=== PATIENT | female | born 1955 | race Caucasian/White ===

== ENCOUNTER 2017-03-07 15:51 | Emergency (ER) | payer MEDICAID, OTHER ==
[~2017-03-07] VITALS: Ht 160 cm; Wt 50.0 kg
[~2017-03-07 15:51] MED LIST: ALBU6.7H INH; AZIT500T5 PO; CLOP75TA15 PO; DUONEB3 ML HHN; Docusate Sodium PO; METH5TAB2 PO; VERA180C2 PO
[2017-03-07] MEDS ORDERED: BENA20TA3 PO (15:59)
[2017-03-07] MEDS ORDERED: METHYLPREDNISOLONE SOD SUCC 125 MG/2 ML VIAL IV STA (16:08)
[2017-03-07] MEDS ORDERED: IPRATROPIUM BROMIDE (0.02%) 0.5MG/2.5ML NEB HHN STA (16:08)
[2017-03-07] MEDS ORDERED: ALBUTEROL (0.083%) 2.5MG/3ML NEB HHN SCH (16:30)
[2017-03-07 16:53] LABS: PROTHROMBIN TIME 10.6 sec (9.4-11.6)
[2017-03-07 16:54] LABS: BASOPHILS % 0.1 % (0.0-2.0); EOSINOPHILS % 0.3 % (0.0-5.0); HEMATOCRIT. 35.4 % (36.0-48.0); HEMOGLOBIN. 11.9 g/dL (12.0-16.0); LYMPHOCYTES % 17.2 % (20.0-50.0); MEAN CORPUSCULAR HEMOGLOBIN 33.1 pg (28.0-32.0); MEAN CORPUSCULAR VOLUME 98.9 fL (81.0-99.0); MEAN PLATELET VOLUME 7.6 fl (7.4-10.4); MONOCYTES % 4.7 % (2.0-8.0); NEUTROPHILS % 77.7 % (40.0-76.0); PLATELET 260 x1000/uL (130-400); RED BLOOD CELL COUNT 3.58 mill/uL (4.2-5.4); RED CELL DISTRIBUTION WIDTH 14.1 % (11.6-14.6)
[2017-03-07 17:01] LABS: CARBON DIOXIDE 31 mEq/L (21-32); CHLORIDE 105 mEq/L (98-107)
[2017-03-07 19:44] VITALS: BP 161/86
[2017-03-07] MEDS ORDERED: ACETAMINOPHEN 650MG/20.3ML UDC PO ONE (20:00)
== END 2017-03-07 21:00 | disposition home or self-care (01) ==
LOC: ER 16:14
DX: J44.1 Chronic obstructive pulmonary disease with (acute) exacerbation (principal); I12.9 Hypertensive chronic kidney disease with stage 1 through stage 4 chronic kidney disease, or unspecified chronic kidney disease; N18.9 Chronic kidney disease, unspecified; B19.20 Unspecified viral hepatitis C without hepatic coma; D63.1 Anemia in chronic kidney disease; F17.210 Nicotine dependence, cigarettes, uncomplicated; F11.10 Opioid abuse, uncomplicated; Z86.73 Personal history of transient ischemic attack (TIA), and cerebral infarction without residual deficits; Z88.0 Allergy status to penicillin
CPT/HCPCS: 36415; 71010; 80053; 85025; 85610; 93005; 94640; 96374; 99285; J2930; J7611; Z7610

== ENCOUNTER 2017-04-08 11:33 | Emergency (ER) | payer MEDICAID ==
[~2017-04-08] VITALS: Ht 160 cm; Wt 41.0 kg
[~2017-04-08 11:33] MED LIST changes: +BENA20TA3 PO
[2017-04-08 12:24] LABS: BASOPHILS % 0.3 % (0.0-2.0); EOSINOPHILS % 0.5 % (0.0-5.0); HEMATOCRIT. 39.1 % (36.0-48.0); LYMPHOCYTES % 30.4 % (20.0-50.0); MEAN CORPUSCULAR HEMOGLOBIN 33.3 pg (28.0-32.0); MEAN PLATELET VOLUME 8.2 fl (7.4-10.4); MONOCYTES % 6.7 % (2.0-8.0); NEUTROPHILS % 62.1 % (40.0-76.0); PLATELET 285 x1000/uL (130-400); RED BLOOD CELL COUNT 3.91 mill/uL (4.2-5.4); RED CELL DISTRIBUTION WIDTH 14.1 % (11.6-14.6)
[2017-04-08 12:35] LABS: CARBON DIOXIDE 29 mEq/L (21-32); CHLORIDE 105 mEq/L (98-107)
[2017-04-08 12:48] LABS: INR 1.1; PROTHROMBIN TIME 10.9 sec (9.4-11.6)
[2017-04-08 14:22] VITALS: BP 111/68
== END 2017-04-08 14:24 | disposition home or self-care (01) ==
LOC: ER 12:28
DX: M54.12 Radiculopathy, cervical region (principal); F17.290 Nicotine dependence, other tobacco product, uncomplicated; J44.9 Chronic obstructive pulmonary disease, unspecified; Z86.19 Personal history of other infectious and parasitic diseases; Z88.0 Allergy status to penicillin; Z79.01 Long term (current) use of anticoagulants
CPT/HCPCS: 36415; 72040; 80053; 85025; 85610; 99285

== ENCOUNTER 2017-07-20 16:58 | Emergency (ER) | payer MEDICAID ==
[~2017-07-20] VITALS: Ht 157.5 cm; Wt 41.0 kg
[2017-07-20 18:32] LABS: BASOPHILS % 0.2 % (0.0-2.0); EOSINOPHILS % 0.4 % (0.0-5.0); HEMATOCRIT. 41.6 % (36.0-48.0); HEMOGLOBIN. 13.6 g/dL (12.0-16.0); LYMPHOCYTES % 17.6 % (20.0-50.0); MEAN CORPUSCULAR HEMOGLOBIN 32.5 pg (28.0-32.0); MEAN CORPUSCULAR VOLUME 99.3 fL (81.0-99.0); MEAN PLATELET VOLUME 7.6 fl (7.4-10.4); MONOCYTES % 5.9 % (2.0-8.0); NEUTROPHILS % 75.9 % (40.0-76.0); PLATELET 296 x1000/uL (130-400); RED BLOOD CELL COUNT 4.19 mill/uL (4.2-5.4)
[2017-07-20 18:34] LABS: CHLORIDE 101 mEq/L (98-107)
[2017-07-20 18:41] LABS: CARBON DIOXIDE 29 mEq/L (21-32)
[2017-07-20 18:53] VITALS: BP 119/75
== END 2017-07-20 19:04 | disposition home or self-care (01) ==
LOC: ER 16:58
DX: R20.2 Paresthesia of skin (principal); F17.200 Nicotine dependence, unspecified, uncomplicated; J44.9 Chronic obstructive pulmonary disease, unspecified; Z90.710 Acquired absence of both cervix and uterus; W19.XXXA Unspecified fall, initial encounter; Y93.89 Activity, other specified; Y92.89 Other specified places as the place of occurrence of the external cause; Y99.8 Other external cause status
CPT/HCPCS: 36415; 70450; 71045; 80053; 85025; 93005; 99285

== ENCOUNTER 2017-11-04 10:36 | Inpatient (IN) | payer MEDICAID ==
[~2017-11-04] VITALS: Ht 157.5 cm; Wt 42.2 kg
[~2017-11-04 10:36] MED LIST changes: -ALBU6.7H INH; -AZIT500T5 PO; -BENA20TA3 PO; -CLOP75TA15 PO; -DUONEB3 ML HHN; -Docusate Sodium PO; +METH10TA2 PO; -METH5TAB2 PO; -VERA180C2 PO
[2017-11-04 11:22] LABS: BASOPHILS % 0.3 % (0.0-2.0); EOSINOPHILS % 0.1 % (0.0-5.0); HEMATOCRIT. 43.3 % (36.0-48.0); HEMOGLOBIN. 14.6 g/dL (12.0-16.0); LYMPHOCYTES % 12.5 % (20.0-50.0); MEAN CORPUSCULAR HEMOGLOBIN 33.4 pg (28.0-32.0); MEAN CORPUSCULAR VOLUME 99.1 fL (81.0-99.0); MEAN PLATELET VOLUME 7.5 fl (7.4-10.4); MONOCYTES % 7.5 % (2.0-8.0); NEUTROPHILS % 79.6 % (40.0-76.0); PLATELET 257 x1000/uL (130-400); RED BLOOD CELL COUNT 4.37 mill/uL (4.2-5.4); RED CELL DISTRIBUTION WIDTH 16.5 % (11.6-14.6)
[2017-11-04 11:30] LABS: CHLORIDE 95 mEq/L (98-107); INR 1.1
[2017-11-04] MEDS ORDERED: IPRATROPIUM/ALBUTEROL 0.5-3(2.5)MG/3ML NEB HHN PRN ×2 (12:15→18:15)
[2017-11-04] MEDS ORDERED: DEXT 5%/0.45% NACL 1000ML 1,000 ML IV SCH (12:15)
[2017-11-04] MEDS ORDERED: HYDRALAZINE 20MG/ML VIAL IV PRN (12:15)
[2017-11-04] MEDS ORDERED: DEXAMETHASONE 10 MG/ML VIAL IV ONE (13:45)
[2017-11-04 14:30] VITALS: BP 136/90
[2017-11-04] MEDS ORDERED: HYDRALAZINE 10 MG in SODIUM CHLORIDE 0.9% 49.5 ML IV PRN (15:30)
[2017-11-04 15:51] VITALS: BP 136/90
[2017-11-04] MEDS ORDERED: POTASSIUM CHLORIDE INJ 40 MEQ in DEXT 5% WATER 250 ML IV NR (17:00)
[2017-11-04] MEDS: KCL 20MEQ/100ML PREMIX 100 ML IV SCH ×2 (17:31→19:00)
[2017-11-04 18:09] LABS: CLARITY URINE CLEAR (CLEAR); COLOR URINE YELLOW (YELLOW); KETONES URINE NEGATIVE (NEGATIVE); LEUKOCYTE ESTERASE URINE NEGATIVE (NEGATIVE); NITRITE URINE NEGATIVE (NEGATIVE); OCCULT BLOOD URINE NEGATIVE (NEGATIVE); PH URINE 7.5 (4.5-8.0); PROTEIN URINE 2+ (NEGATIVE); SPECIFIC GRAVITY URINE 1.015 (1.005-1.030)
[2017-11-04 18:17] LABS: PHENCYCLIDINE URINE SCREEN NEGATIVE (NEGATIVE)
[2017-11-04 18:18] LABS: *AMPHETAMINES SCREEN URINE NEGATIVE (NEGATIVE); *BARBITURATES SCREEN URINE NEGATIVE (NEGATIVE); *BENZODIAZEPINES SCREEN URINE NEGATIVE (NEGATIVE); *COCAINE SCREEN URINE NEGATIVE (NEGATIVE); CANNABINOID URINE SCREEN NEGATIVE (NEGATIVE); OPIATES URINE SCREEN NEGATIVE (NEGATIVE)
[2017-11-04 18:25] LABS: METHADONE URINE SCREEN PRESUMTIVE POSITIVE (NEGATIVE)
[2017-11-04] MEDS: HYDROCODONE/ACETAMINOPHEN 10/325MG TABLET PO PRN (18:30)
[2017-11-04] MEDS ORDERED: NICOTINE 21MG PATCH TD NR (20:00)
[2017-11-04] MEDS: BUDESONIDE 0.5MG/2ML NEB HHN SCH (20:57)
[2017-11-04] MEDS: IPRATROPIUM/ALBUTEROL 0.5-3(2.5)MG/3ML NEB HHN SCH (20:57)
[2017-11-04] MEDS: MORPHINE SULFATE 4 MG/ML CPJ (NOT FOR IM USE) IV PRN (21:04)
[2017-11-05] VITALS: BP 160/99
[2017-11-05] MEDS: CLONIDINE 0.1MG TABLET PO PRN (00:03)
[2017-11-05] MEDS: IPRATROPIUM/ALBUTEROL 0.5-3(2.5)MG/3ML NEB HHN SCH ×4 (02:29→21:13)
[2017-11-05 04:00] VITALS: BP 123/86
[2017-11-05 06:26] LABS: HEMATOCRIT 38.6 % (36.0-48.0); MEAN CORPUSCULAR HEMOGLOBIN 33.2 pg (28.0-32.0); MEAN CORPUSCULAR VOLUME 98.9 fL (81.0-99.0); PLATELET 210 x1000/uL (130-400); RED BLOOD CELL COUNT 3.91 mill/uL (4.2-5.4); RED CELL DISTRIBUTION WIDTH 16.5 % (11.6-14.6)
[2017-11-05] MEDS: HYDROCODONE/ACETAMINOPHEN 10/325MG TABLET PO PRN (06:28)
[2017-11-05 06:48] LABS: CHLORIDE 93 mEq/L (98-107)
[2017-11-05] MEDS: BUDESONIDE 0.5MG/2ML NEB HHN SCH ×2 (07:55→21:11)
[2017-11-05 08:00] VITALS: BP 125/89
[2017-11-05] MEDS: METHADONE HCL 10MG TABLET PO SCH (08:37)
[2017-11-05] MEDS ORDERED: POTASSIUM CHLORIDE 20MEQ TABLET SR PO NR (11:15)
[2017-11-05] MEDS: NICOTINE 21MG PATCH TD SCH (11:37)
[2017-11-05 12:00] VITALS: BP 134/77
[2017-11-05] MEDS: DEXAMETHASONE 4MG/ML 1ML VIAL IV SCH ×2 (12:57→18:20)
[2017-11-05 16:00] VITALS: BP 123/87
[2017-11-05 20:00] VITALS: BP 131/89
[2017-11-05] MEDS: MORPHINE SULFATE 4 MG/ML CPJ (NOT FOR IM USE) IV PRN (20:04)
[2017-11-06] VITALS (35 sets, daily range): BP systolic 92–194; BP diastolic 48–151
[2017-11-06] MEDS: DEXAMETHASONE 4MG/ML 1ML VIAL IV SCH ×5 (00:24→23:42)
[2017-11-06] MEDS: IPRATROPIUM/ALBUTEROL 0.5-3(2.5)MG/3ML NEB HHN SCH ×3 (03:12→19:52)
[2017-11-06] MEDS: MORPHINE SULFATE 4 MG/ML CPJ (NOT FOR IM USE) IV PRN ×3 (04:29→22:29)
[2017-11-06] MEDS ORDERED: GELATIN SPONGE,ABSORBABLE SZ 100 ONE (06:45)
[2017-11-06] MEDS ORDERED: BACITRACIN 50,000 UNITS/VIAL ONE (06:46)
[2017-11-06] MEDS ORDERED: THROMBIN (BOVINE) 5000 UNITS/VIAL TOP ONE (06:46)
[2017-11-06] MEDS ORDERED: NORMAL SALINE 0.9% 10 ML SYR ONE (06:46)
[2017-11-06] MEDS: BUDESONIDE 0.5MG/2ML NEB HHN SCH ×2 (08:10→19:52)
[2017-11-06] MEDS: METHADONE HCL 10MG TABLET PO SCH (09:00)
[2017-11-06] MEDS: NICOTINE 21MG PATCH TD SCH (09:30)
[2017-11-06] MEDS ORDERED: NICARDIPINE 100 MG in SODIUM CHLORIDE 0.9% 60 ML IV PRN (11:00)
[2017-11-06] MEDS ORDERED: MORPHINE SULFATE 2 MG/ML CPJ (NOT FOR IM USE) IV PRN (11:00)
[2017-11-06] MEDS ORDERED: PROPOFOL 200MG/20ML VIAL IV ONE ×3 (12:02→13:59)
[2017-11-06] MEDS ORDERED: MIDAZOLAM HCL 2 MG/2 ML VIAL ONE (12:08)
[2017-11-06] MEDS ORDERED: FENTANYL CITRATE/PF 50MCG/ML 5ML VIAL ONE (12:08)
[2017-11-06] MEDS ORDERED: ROCURONIUM BROMIDE 10MG/ML VIAL 5ML IV ONE (12:11)
[2017-11-06] MEDS ORDERED: SUCCINYLCHOLINE CHLORIDE 200MG/10ML VIAL IV ONE (13:14)
[2017-11-06] MEDS ORDERED: LABETALOL HCL 5MG/ML VIAL 20ML IV ONE (13:14)
[2017-11-06] MEDS ORDERED: CEFAZOLIN SODIUM 1000MG/VIAL ONE (13:14)
[2017-11-06] MEDS ORDERED: PETROLATUM,WHITE OPHTH OINT 3.5GM ONE (13:14)
[2017-11-06] MEDS ORDERED: LIDOCAINE HCL 1% 20ML VIAL (Pyxis) INJ ONE (13:14)
[2017-11-06] MEDS ORDERED: NEOSTIGMINE METHYLSULFATE 1MG/ML 10 ML VIAL ONE (14:51)
[2017-11-06] MEDS ORDERED: ONDANSETRON HCL 4MG/2ML VIAL ONE (15:05)
[2017-11-06 15:54] LABS: BG BASE EXCESS 0.7 mmol/L (-2.0-2.0); BG CARBOXYHEMOGLOBIN 0.5 % (0.5-1.5); BG DEOXYHEMOGLOBIN 0.5 % (0.0-5.0); BG FRACTION INSPIRED OXYGEN 80+; BG HCO3 ACT 26.3 mmol/L (22.0-26.0); BG METHEMOGLOBIN 0.2 % (0.0-1.5); BG OXYGEN SATURATION 99.5 % (92.0-98.5); BG OXYHEMOGLOBIN 98.8 % (94.0-97.0); BG PCO2 46.2 mmHg (35.0-45.0); BG PH 7.373 (7.350-7.450); BG PO2 294.9 mmHg (75.0-100.0); BG SAMPLE SITE LEFT RADIAL; BG TOTAL HEMOGLOBIN 12.1 g/dL (12.0-18.0); BG VENT MODE MASK - SIMPLE
[2017-11-06] MEDS ORDERED: NALOXONE INJ IV PRN (16:00)
[2017-11-06] MEDS ORDERED: DIPHENHYDRAMINE INJ IV PRN (16:00)
[2017-11-06] MEDS ORDERED: ONDANSETRON INJ IV PRN (16:00)
[2017-11-06] MEDS ORDERED: HYDROMORPHONE PCA 10MG/50ML IV PRN (16:00)
[2017-11-06] MEDS: DEXT 5%/LACTATED RINGERS 1,000 ML IV SCH (18:53)
[2017-11-06] MEDS ORDERED: CEFAZOLIN SODIUM 1000MG/VIAL IV SCH (22:00)
[2017-11-06] MEDS: CEFAZOLIN 1000MG PREMIX 50 ML IV SCH (22:22)
[2017-11-07] VITALS (56 sets, daily range): BP systolic 115–182; BP diastolic 46–146
[2017-11-07] MEDS: IPRATROPIUM/ALBUTEROL 0.5-3(2.5)MG/3ML NEB HHN SCH ×5 (00:22→21:05)
[2017-11-07] MEDS: DEXT 5%/LACTATED RINGERS 1,000 ML IV SCH ×2 (01:54→13:13)
[2017-11-07] MEDS: MORPHINE SULFATE 4 MG/ML CPJ (NOT FOR IM USE) IV PRN (04:37)
[2017-11-07 05:37] LABS: HEMATOCRIT. 35.3 % (36.0-48.0); HEMOGLOBIN. 11.5 g/dL (12.0-16.0); MEAN CORPUSCULAR HEMOGLOBIN 33.2 pg (28.0-32.0); MEAN CORPUSCULAR VOLUME 101.4 fL (81.0-99.0); MEAN PLATELET VOLUME 8.3 fl (7.4-10.4); PLATELET 213 x1000/uL (130-400); RED BLOOD CELL COUNT 3.48 mill/uL (4.2-5.4); RED CELL DISTRIBUTION WIDTH 16.1 % (11.6-14.6)
[2017-11-07] MEDS: DEXAMETHASONE 4MG/ML 1ML VIAL IV SCH ×3 (05:50→17:38)
[2017-11-07] MEDS: CEFAZOLIN 1000MG PREMIX 50 ML IV SCH ×2 (05:50→16:19)
[2017-11-07 05:53] LABS: CHLORIDE 99 mEq/L (98-107)
[2017-11-07 08:34] LABS: PLATELET ESTIMATE NORMAL
[2017-11-07] MEDS: METHADONE HCL 10MG TABLET PO SCH ×2 (09:00→16:21)
[2017-11-07] MEDS: NICOTINE 21MG PATCH TD SCH (10:46)
[2017-11-07] MEDS ORDERED: MORPHINE SULFATE 4 MG/ML CPJ (NOT FOR IM USE) IV PRN (12:15)
[2017-11-07] MEDS: BUDESONIDE 0.5MG/2ML NEB HHN SCH ×2 (12:59→21:05)
[2017-11-07] MEDS ORDERED: AMLODIPINE 2.5MG TABLET PO SCH (17:00)
[2017-11-07] MEDS: AMLODIPINE 2.5MG TABLET PO SCH ×2 (17:37→21:00)
[2017-11-08] VITALS (7 sets, daily range): BP systolic 102–154; BP diastolic 54–99
[2017-11-08] MEDS: DEXAMETHASONE 4MG/ML 1ML VIAL IV SCH ×4 (00:15→17:03)
[2017-11-08] MEDS: HYDROCODONE/ACETAMINOPHEN 10/325MG TABLET PO PRN ×2 (00:16→17:14)
[2017-11-08] MEDS: IPRATROPIUM/ALBUTEROL 0.5-3(2.5)MG/3ML NEB HHN SCH ×4 (02:01→22:16)
[2017-11-08] MEDS: CLONIDINE 0.1MG TABLET PO PRN (04:37)
[2017-11-08 07:00] LABS: HEMATOCRIT. 34.8 % (36.0-48.0); HEMOGLOBIN. 11.7 g/dL (12.0-16.0); MEAN CORPUSCULAR HEMOGLOBIN 33.8 pg (28.0-32.0); MEAN CORPUSCULAR VOLUME 100.7 fL (81.0-99.0); PLATELET 211 x1000/uL (130-400); RED BLOOD CELL COUNT 3.46 mill/uL (4.2-5.4); RED CELL DISTRIBUTION WIDTH 15.9 % (11.6-14.6)
[2017-11-08 07:29] LABS: CHLORIDE 98 mEq/L (98-107)
[2017-11-08] MEDS: AMLODIPINE 2.5MG TABLET PO SCH (09:35)
[2017-11-08] MEDS: NICOTINE 21MG PATCH TD SCH (09:35)
[2017-11-08] MEDS: METHADONE HCL 10MG TABLET PO SCH (09:37)
[2017-11-08] MEDS: DOCUSATE SODIUM 100MG CAPSULE PO SCH (17:03)
[2017-11-08 17:50] LABS: PLATELET ESTIMATE NORMAL
[2017-11-08] MEDS ORDERED: POLYETHYLENE GLYCOL 3350 (17GM) 1 DOSE PACK PO SCH (21:00)
[2017-11-08] MEDS: AMLODIPINE 5MG TABLET PO SCH (21:56)
[2017-11-09] VITALS: BP 163/97
[2017-11-09] MEDS: IPRATROPIUM/ALBUTEROL 0.5-3(2.5)MG/3ML NEB HHN SCH (02:20)
[2017-11-09 04:00] VITALS: BP 142/88
[2017-11-09] MEDS ORDERED: PANTOPRAZOLE 40MG DR TABLET PO SCH (07:20)
[2017-11-09] MEDS: DOCUSATE SODIUM 100MG CAPSULE PO SCH (08:42)
[2017-11-09] MEDS: METHADONE HCL 10MG TABLET PO SCH (08:42)
[2017-11-09] MEDS: AMLODIPINE 5MG TABLET PO SCH (08:42)
[2017-11-09] MEDS: NICOTINE 21MG PATCH TD SCH (08:43)
[2017-11-09 16:02] VITALS: BP 114/69
== END 2017-11-09 16:42 | disposition home health service (06) | DRG 321 ==
LOC: ER 10:49 → 6EST 11:21 → ENRESERV 11:56 → MICUSO 11-06 11:51 → 6EST 11-07 20:45
PROVIDERS: ADMIT Internal Medicine; ATTEND Internal Medicine
PROC: 0RG10K0 Fusion of Cervical Vertebral Joint with Nonautologous Tissue Substitute, Anterior Approach, Anterior Column, Open Approach (ICD-10-PCS; 2017-11-06)
PROC: 0RT30ZZ Resection of Cervical Vertebral Disc, Open Approach (ICD-10-PCS; principal; 2017-11-06 10:00)
DX: M48.02 Spinal stenosis, cervical region (principal); E43 Unspecified severe protein-calorie malnutrition; S14.103A Unspecified injury at C3 level of cervical spinal cord, initial encounter; G82.50 Quadriplegia, unspecified; G95.89 Other specified diseases of spinal cord; E87.8 Other disorders of electrolyte and fluid balance, not elsewhere classified; G95.20 Unspecified cord compression; F11.20 Opioid dependence, uncomplicated; M41.84 Other forms of scoliosis, thoracic region; G95.29 Other cord compression; M47.12 Other spondylosis with myelopathy, cervical region; S14.104A Unspecified injury at C4 level of cervical spinal cord, initial encounter; B19.20 Unspecified viral hepatitis C without hepatic coma; E87.6 Hypokalemia; M48.061 Spinal stenosis, lumbar region without neurogenic claudication; J44.9 Chronic obstructive pulmonary disease, unspecified; I10 Essential (primary) hypertension; M47.22 Other spondylosis with radiculopathy, cervical region; D64.9 Anemia, unspecified; Z96.642 Presence of left artificial hip joint; G89.4 Chronic pain syndrome; F17.210 Nicotine dependence, cigarettes, uncomplicated; X58.XXXA Exposure to other specified factors, initial encounter; Y93.89 Activity, other specified; Y92.89 Other specified places as the place of occurrence of the external cause; Y99.8 Other external cause status; Z86.73 Personal history of transient ischemic attack (TIA), and cerebral infarction without residual deficits; Z82.5 Family history of asthma and other chronic lower respiratory diseases; Z82.49 Family history of ischemic heart disease and other diseases of the circulatory system; Z90.710 Acquired absence of both cervix and uterus; Z68.1 Body mass index [BMI] 19.9 or less, adult; Z88.0 Allergy status to penicillin; Z91.81 History of falling
CPT/HCPCS: 36415; 36600; 71045; 72040; 72128; 72131; 72141; 80048; 80305; 81003; 82040; 82375; 82805; 84484; 85025; 85027; 85610; 87070; 87075; 87205; 88304; 88311; 92610; 93005; 93306; 94640; 97110; 97116; 97163; 97166; 97530; 97535; 99285; A4216; C1713; C1893; J0330; J0690; J1100; J1170; J2250; J2270; J2405; J2704; J2710; J3010; J3480; J3490; J7040; J7050; J7060; J7121; J7620; J7626; L0172

== ENCOUNTER 2018-03-22 19:02 | Inpatient (IN) | payer MEDICAID ==
[~2018-03-22] VITALS: Ht 157.5 cm; Wt 38.7 kg
[2018-03-22] MEDS ORDERED: IPRATROPIUM BROMIDE (0.02%) 0.5MG/2.5ML NEB HHN STA (19:14)
[2018-03-22] MEDS ORDERED: ALBUTEROL (0.083%) 2.5MG/3ML NEB HHN STA (19:14)
[2018-03-22] MEDS ORDERED: METHYLPREDNISOLONE SOD SUCC 125 MG/2 ML VIAL IV STA (19:14)
[2018-03-22 20:13] LABS: BASOPHILS % 0.2 % (0.0-2.0); EOSINOPHILS % 0.2 % (0.0-5.0); HEMATOCRIT. 42.7 % (36.0-48.0); LYMPHOCYTES % 33.1 % (20.0-50.0); MEAN CORPUSCULAR HEMOGLOBIN 35.4 pg (28.0-32.0); MEAN CORPUSCULAR VOLUME 107.9 fL (81.0-99.0); MEAN PLATELET VOLUME 8.4 fl (7.4-10.4); MONOCYTES % 7.5 % (2.0-8.0); PLATELET 167 x1000/uL (130-400); RED BLOOD CELL COUNT 3.95 mill/uL (4.2-5.4); RED CELL DISTRIBUTION WIDTH 16.3 % (11.6-14.6)
[2018-03-22 20:17] LABS: CHLORIDE 102 mEq/L (98-107)
[2018-03-22] MEDS ORDERED: ASPIRIN 81MG TABLET PO ONE (21:00)
[2018-03-22] MEDS ORDERED: FUROSEMIDE 20MG TABLET PO ONE (21:00)
[2018-03-22] MEDS ORDERED: GUAIFENESIN 200MG/10ML SUGAR FREE UDC PO PRN (21:45)
[2018-03-22] MEDS ORDERED: ONDANSETRON HCL 4MG/2ML INJ IV PRN (21:45)
[2018-03-22] MEDS ORDERED: MAGNESIUM/ALUMINUM HYDROXIDE/SIMETHICONE 30ML UDC PO PRN (21:45)
[2018-03-22] MEDS ORDERED: IPRATROPIUM/ALBUTEROL 0.5-3(2.5)MG/3ML NEB INH PRN (21:45)
[2018-03-22] MEDS ORDERED: HYDROCODONE/ACETAMINOPHEN 5/325MG TABLET PO PRN (21:45)
[2018-03-22] MEDS ORDERED: DOCUSATE SODIUM 100MG CAPSULE PO PRN (21:45)
[2018-03-22] MEDS ORDERED: CLONIDINE 0.1MG TABLET PO PRN (21:45)
[2018-03-22] MEDS ORDERED: ACETAMINOPHEN 325MG TABLET PO PRN (21:45)
[2018-03-22 22:20] VITALS: BP 137/85
[2018-03-22] MEDS ORDERED: POTASSIUM CHLORIDE 20MEQ TABLET SR PO SCH (22:29)
[2018-03-22] MEDS: METHYLPREDNISOLONE SOD SUCC 40 MG/ML VIAL IV SCH (23:29)
[2018-03-22 23:46] LABS: CREATINE KINASE MB FRACTION 7.1 ng/mL (0.5-3.6)
[2018-03-23] VITALS: BP 137/85
[2018-03-23] MEDS: IPRATROPIUM/ALBUTEROL 0.5-3(2.5)MG/3ML NEB INH SCH ×5 (01:48→21:40)
[2018-03-23] MEDS: BUDESONIDE 0.5MG/2ML NEB HHN SCH ×2 (01:59→12:32)
[2018-03-23 02:51] LABS: CLARITY URINE CLEAR (CLEAR); COLOR URINE YELLOW (YELLOW); KETONES URINE NEGATIVE (NEGATIVE); LEUKOCYTE ESTERASE URINE NEGATIVE (NEGATIVE); NITRITE URINE NEGATIVE (NEGATIVE); OCCULT BLOOD URINE NEGATIVE (NEGATIVE); PROTEIN URINE TRACE (NEGATIVE); SPECIFIC GRAVITY URINE 1.012 (1.005-1.030); UROBILINOGEN URINE 0.2 E.U./dL (0.2-1.0)
[2018-03-23 03:15] LABS: *BENZODIAZEPINES SCREEN URINE NEGATIVE (NEGATIVE); *COCAINE SCREEN URINE NEGATIVE (NEGATIVE); OPIATES URINE SCREEN NEGATIVE (NEGATIVE)
[2018-03-23 03:16] LABS: *AMPHETAMINES SCREEN URINE NEGATIVE (NEGATIVE); *BARBITURATES SCREEN URINE NEGATIVE (NEGATIVE); CANNABINOID URINE SCREEN NEGATIVE (NEGATIVE); PHENCYCLIDINE URINE SCREEN NEGATIVE (NEGATIVE)
[2018-03-23 03:40] LABS: METHADONE URINE SCREEN PRESUMTIVE POSITIVE (NEGATIVE)
[2018-03-23 04:00] VITALS: BP 137/89
[2018-03-23] MEDS: METHYLPREDNISOLONE SOD SUCC 40 MG/ML VIAL IV SCH ×2 (05:14→15:08)
[2018-03-23 06:25] LABS: HEMATOCRIT. 40.4 % (36.0-48.0); HEMOGLOBIN. 13.4 g/dL (12.0-16.0); MEAN CORPUSCULAR HEMOGLOBIN 35.7 pg (28.0-32.0); MEAN CORPUSCULAR VOLUME 107.6 fL (81.0-99.0); MEAN PLATELET VOLUME 8.7 fl (7.4-10.4); PLATELET 149 x1000/uL (130-400); RED BLOOD CELL COUNT 3.75 mill/uL (4.2-5.4); RED CELL DISTRIBUTION WIDTH 15.8 % (11.6-14.6)
[2018-03-23] MEDS: ENOXAPARIN 40MG/0.4ML SYR SUBCUT SCH (07:59)
[2018-03-23 12:00] VITALS: BP 158/101
[2018-03-23] MEDS ORDERED: INFLUENZA VIRUS VACCINE(AFLURIA) 0.5ML SYR IM ONE (12:00)
[2018-03-23] MEDS ORDERED: THIAMINE HCL 100MG TABLET PO NR (12:00)
[2018-03-23] MEDS: LORAZEPAM 2MG/ML CPJ IV PRN ×2 (13:18→17:32)
[2018-03-23 13:46] LABS: PLATELET ESTIMATE NORMAL
[2018-03-23] MEDS ORDERED: IPRATROPIUM/ALBUTEROL 0.5-3(2.5)MG/3ML NEB HHN PRN (14:30)
[2018-03-23] MEDS ORDERED: CLONIDINE 0.1MG TABLET PO PRN (14:30)
[2018-03-23] MEDS ORDERED: NICOTINE 7MG PATCH TD SCH (15:00)
[2018-03-23] MEDS: CHLORDIAZEPOXIDE 5 MG CAPSULE PO SCH ×2 (15:07→21:29)
[2018-03-23 16:00] VITALS: BP_SYST 150; BP_DIAS 83; BP_DIAS 93
[2018-03-23] MEDS ORDERED: MAGNESIUM SULFATE 2 GM in DEXTROSE 5% WATER 50 ML IV NR (17:00)
[2018-03-23] MEDS: PREDNISONE 20MG TABLET PO SCH (17:32)
[2018-03-23 20:00] VITALS: BP 132/86
[2018-03-23 21:01] LABS: ETHANOL BLOOD < 10 mg/dL
[2018-03-23 21:06] LABS: T4 FREE 1.03 ng/dL (0.76-1.46)
[2018-03-23] MEDS: RISPERIDONE 0.5MG TABLET PO SCH (21:29)
[2018-03-24] VITALS: BP 140/88
[2018-03-24] MEDS: IPRATROPIUM/ALBUTEROL 0.5-3(2.5)MG/3ML NEB INH SCH ×5 (02:20→20:25)
[2018-03-24] MEDS: BUDESONIDE 0.5MG/2ML NEB HHN SCH ×3 (02:20→20:25)
[2018-03-24 04:00] VITALS: BP 128/89
[2018-03-24] MEDS: CHLORDIAZEPOXIDE 5 MG CAPSULE PO SCH ×3 (05:17→20:02)
[2018-03-24 06:14] LABS: CHLORIDE 93 mEq/L (98-107)
[2018-03-24 06:20] LABS: MEAN CORPUSCULAR HEMOGLOBIN 35.4 pg (28.0-32.0); MEAN CORPUSCULAR VOLUME 106.3 fL (81.0-99.0); MEAN PLATELET VOLUME 8.6 fl (7.4-10.4); PLATELET 154 x1000/uL (130-400); RED BLOOD CELL COUNT 3.67 mill/uL (4.2-5.4); RED CELL DISTRIBUTION WIDTH 15.8 % (11.6-14.6)
[2018-03-24 06:30] LABS: PHOSPHORUS 3.3 mg/dL (2.5-4.9)
[2018-03-24 07:40] VITALS: BP 158/98
[2018-03-24] MEDS: FOLIC ACID 1MG TABLET PO SCH (09:09)
[2018-03-24] MEDS: METHADONE HCL 10MG TABLET PO SCH (09:09)
[2018-03-24] MEDS: THIAMINE HCL 100MG TABLET PO SCH (09:09)
[2018-03-24] MEDS: PREDNISONE 20MG TABLET PO SCH (09:10)
[2018-03-24] MEDS: ENOXAPARIN 40MG/0.4ML SYR SUBCUT SCH (09:10)
[2018-03-24] MEDS: NICOTINE 21MG PATCH TD SCH (09:10)
[2018-03-24] MEDS: MULTIVITAMINS,THER W-MINERALS TABLET PO SCH (09:21)
[2018-03-24 10:02] LABS: PLATELET ESTIMATE NORMAL
[2018-03-24 12:00] VITALS: BP 146/95
[2018-03-24] MEDS ORDERED: LOSARTAN POTASSIUM 25 MG TABLET PO SCH (13:00)
[2018-03-24 16:00] VITALS: BP 121/86
[2018-03-24 20:00] VITALS: BP 138/90
[2018-03-24] MEDS: RISPERIDONE 0.5MG TABLET PO SCH (20:02)
[2018-03-25] VITALS: BP 163/101
[2018-03-25] MEDS: IPRATROPIUM/ALBUTEROL 0.5-3(2.5)MG/3ML NEB INH SCH ×5 (00:55→14:47)
[2018-03-25 04:00] VITALS: BP 159/99
[2018-03-25] MEDS: CHLORDIAZEPOXIDE 5 MG CAPSULE PO SCH ×2 (06:11→15:31)
[2018-03-25 06:47] LABS: BASOPHILS % 0.2 % (0.0-2.0); EOSINOPHILS % 0.1 % (0.0-5.0); HEMATOCRIT. 40.8 % (36.0-48.0); HEMOGLOBIN. 13.7 g/dL (12.0-16.0); LYMPHOCYTES % 20.4 % (20.0-50.0); MEAN CORPUSCULAR HEMOGLOBIN 35.9 pg (28.0-32.0); MEAN CORPUSCULAR VOLUME 106.9 fL (81.0-99.0); MEAN PLATELET VOLUME 8.4 fl (7.4-10.4); MONOCYTES % 6.9 % (2.0-8.0); NEUTROPHILS % 72.4 % (40.0-76.0); PLATELET 167 x1000/uL (130-400); RED BLOOD CELL COUNT 3.82 mill/uL (4.2-5.4); RED CELL DISTRIBUTION WIDTH 15.8 % (11.6-14.6)
[2018-03-25 06:56] LABS: CHLORIDE 94 mEq/L (98-107)
[2018-03-25 08:00] VITALS: BP 159/109
[2018-03-25] MEDS: BUDESONIDE 0.5MG/2ML NEB HHN SCH (08:17)
[2018-03-25] MEDS ORDERED: LOSARTAN POTASSIUM 25 MG TABLET PO SCH (09:00)
[2018-03-25] MEDS: METHADONE HCL 10MG TABLET PO SCH (10:31)
[2018-03-25] MEDS: MULTIVITAMINS,THER W-MINERALS TABLET PO SCH (10:32)
[2018-03-25] MEDS: THIAMINE HCL 100MG TABLET PO SCH (10:32)
[2018-03-25] MEDS: FOLIC ACID 1MG TABLET PO SCH (10:32)
[2018-03-25] MEDS: NICOTINE 21MG PATCH TD SCH (10:32)
[2018-03-25] MEDS: ENOXAPARIN 40MG/0.4ML SYR SUBCUT SCH (10:33)
[2018-03-25 12:00] VITALS: BP 123/98
[2018-03-25] MEDS ORDERED: AMLODIPINE 2.5MG TABLET PO SCH (12:00)
[2018-03-25] MEDS ORDERED: BISACODYL 10MG SUPP PR PRN (14:00)
[2018-03-25] MEDS ORDERED: LACTULOSE 20G/30ML UDC PO NR (14:00)
[2018-03-25] MEDS ORDERED: NA PHOS,M-B/NA PHOS,DI-BA ENEMA 118ML PR NR (14:30)
[2018-03-25 15:48] VITALS: BP 142/96
[2018-03-25 15:50] VITALS: BP 142/96
== END 2018-03-25 16:45 | disposition home health service (06) | DRG 48 ==
LOC: ER 19:11 → 6WST 20:56 → EDBEDREQTM 20:58 → EDBEDREQ 20:58 → ENRESERV 21:16 → 6WST 23:30
PROVIDERS: ADMIT Internal Medicine; ATTEND Internal Medicine
DX: G90.8 Other disorders of autonomic nervous system (principal); J96.00 Acute respiratory failure, unspecified whether with hypoxia or hypercapnia; E43 Unspecified severe protein-calorie malnutrition; E83.42 Hypomagnesemia; F11.20 Opioid dependence, uncomplicated; M41.9 Scoliosis, unspecified; I11.0 Hypertensive heart disease with heart failure; I50.9 Heart failure, unspecified; J44.1 Chronic obstructive pulmonary disease with (acute) exacerbation; G82.50 Quadriplegia, unspecified; R25.1 Tremor, unspecified; M54.12 Radiculopathy, cervical region; F10.10 Alcohol abuse, uncomplicated; B19.20 Unspecified viral hepatitis C without hepatic coma; G95.9 Disease of spinal cord, unspecified; M48.061 Spinal stenosis, lumbar region without neurogenic claudication; M48.02 Spinal stenosis, cervical region; Z96.642 Presence of left artificial hip joint; F17.210 Nicotine dependence, cigarettes, uncomplicated; Z86.73 Personal history of transient ischemic attack (TIA), and cerebral infarction without residual deficits; Z87.81 Personal history of (healed) traumatic fracture; Z71.6 Tobacco abuse counseling; Z90.710 Acquired absence of both cervix and uterus; Z79.899 Other long term (current) drug therapy; Z88.0 Allergy status to penicillin; Z82.5 Family history of asthma and other chronic lower respiratory diseases
CPT/HCPCS: 36415; 70551; 71045; 74018; 80048; 80053; 80061; 80305; 81003; 82390; 82550; 82553; 83036; 83735; 83880; 84100; 84439; 84443; 84481; 84484; 85025; 90686; 93005; 93970; 94640; 96374; 97162; 97166; 99285; C1893; G0482; J1650; J2060; J2920; J2930; J3475; J7050; J7060; J7512; J7611; J7620; J7626

== ENCOUNTER 2018-03-27 01:05 | Inpatient (IN) | payer MEDICAID ==
[2018-03-27] VITALS (53 sets, daily range): BP systolic 106–156; BP diastolic 78–104
[~2018-03-27] VITALS: Ht 167.6 cm; Wt 45.1 kg
[2018-03-27] MEDS ORDERED: METHYLPREDNISOLONE SOD SUCC 125 MG/2 ML VIAL IV STA (01:17)
[2018-03-27] MEDS ORDERED: IPRATROPIUM BROMIDE (0.02%) 0.5MG/2.5ML NEB HHN STA (01:17)
[2018-03-27] MEDS ORDERED: ALBUTEROL (0.083%) 2.5MG/3ML NEB HHN STA (01:17)
[2018-03-27] MEDS ORDERED: PROPOFOL 10MG/ML 100ML 100 ML IV ONE (01:30)
[2018-03-27] MEDS ORDERED: MAGNESIUM 2 G PREMIX 50 ML IV ONE (01:30)
[2018-03-27] MEDS ORDERED: SUCCINYLCHOLINE CHLORIDE 200MG/10ML IV ONE ×2 (01:30→13:39)
[2018-03-27] MEDS ORDERED: ETOMIDATE 2MG/ML 10ML VIAL IV ONE ×2 (01:30→13:39)
[2018-03-27 02:29] LABS: BASOPHILS % 0.2 % (0.0-2.0); HEMATOCRIT. 42.6 % (36.0-48.0); HEMOGLOBIN. 13.9 g/dL (12.0-16.0); LYMPHOCYTES % 13.9 % (20.0-50.0); MEAN CORPUSCULAR HEMOGLOBIN 35.7 pg (28.0-32.0); MEAN CORPUSCULAR VOLUME 109.2 fL (81.0-99.0); MEAN PLATELET VOLUME 8.7 fl (7.4-10.4); MONOCYTES % 7.9 % (2.0-8.0); PLATELET 181 x1000/uL (130-400); RED CELL DISTRIBUTION WIDTH 16.4 % (11.6-14.6)
[2018-03-27 02:34] LABS: CHLORIDE 107 mEq/L (98-107)
[2018-03-27 02:35] LABS: BG BASE EXCESS 2.5 mmol/L (-2.0-2.0); BG DEOXYHEMOGLOBIN 0.1 % (0.0-5.0); BG FRACTION INSPIRED OXYGEN 100; BG HCO3 ACT 29.7 mmol/L (22.0-26.0); BG METHEMOGLOBIN 0.4 % (0.0-1.5); BG OXYGEN SATURATION 99.9 % (92.0-98.5); BG OXYHEMOGLOBIN 98.5 % (94.0-97.0); BG PCO2 57.7 mmHg (35.0-45.0); BG PO2 470.7 mmHg (75.0-100.0); BG SAMPLE SITE RIGHT BRACHIAL; BG TIDAL VOLUME(mL) 375 mL; BG TOTAL HEMOGLOBIN 13.2 g/dL (12.0-18.0); BG VENT MODE VENT - A/C; BG VENT RATE 12 set
[2018-03-27] MEDS ORDERED: SODIUM CHLORIDE 0.9% 1,000 ML IV ONE (02:45)
[2018-03-27] MEDS: ASPIRIN 300MG SUPP PR NR ×2 (04:32→04:38)
[2018-03-27] MEDS ORDERED: ACETAMINOPHEN 650MG SUPP PR PRN (07:45)
[2018-03-27] MEDS ORDERED: ONDANSETRON HCL 4MG/2ML INJ IV PRN (07:45)
[2018-03-27] MEDS ORDERED: ACETAMINOPHEN 650MG/20.3ML UDC GT PRN (07:45)
[2018-03-27] MEDS: PROPOFOL 10MG/ML 100ML 100 ML IV SCH ×2 (07:53→12:47)
[2018-03-27] MEDS ORDERED: CEFTRIAXONE 2 G PREMIX 50 ML IV SCH (12:45)
[2018-03-27] MEDS ORDERED: THIAMINE HCL 100MG TABLET GT NR (13:00)
[2018-03-27] MEDS ORDERED: PANTOPRAZOLE SODIUM 40 MG/VIAL IV NR (13:00)
[2018-03-27 13:35] LABS: PHOSPHORUS 4.2 mg/dL (2.5-4.9)
[2018-03-27] MEDS: BUDESONIDE 0.5MG/2ML NEB HHN SCH ×2 (13:39→20:34)
[2018-03-27] MEDS: DEXT 5%/0.45% NACL 1000ML 1,000 ML IV SCH (13:49)
[2018-03-27] MEDS: IPRATROPIUM/ALBUTEROL 0.5-3(2.5)MG/3ML NEB HHN SCH ×2 (13:51→20:34)
[2018-03-27] MEDS: ENOXAPARIN 40MG/0.4ML SYR SUBCUT SCH (13:54)
[2018-03-27] MEDS: AZITHROMYCIN 500 MG in DEXT 5% WATER 250 ML IV SCH (13:55)
[2018-03-27] MEDS ORDERED: OSELTAMIVIR 30MG CAPSULE NG NR (14:00)
[2018-03-27] MEDS: MIDAZOLAM HCL 100 MG in DEXT 5% WATER 80 ML IV PRN (14:00)
[2018-03-27] MEDS: FENTANYL CITRATE/PF 500 MCG in SODIUM CHLORIDE 0.9% 40 ML IV PRN ×2 (14:01→20:29)
[2018-03-27 14:27] LABS: CREATINE KINASE MB FRACTION 3.8 ng/mL (0.5-3.6)
[2018-03-27] MEDS ORDERED: LEVOFLOXACIN 500MG PREMIX 100 ML IV NR (14:30)
[2018-03-27 16:47] LABS: CLARITY URINE TURBID (CLEAR); COLOR URINE DARK YELLOW (YELLOW); KETONES URINE NEGATIVE (NEGATIVE); LEUKOCYTE ESTERASE URINE NEGATIVE (NEGATIVE); NITRITE URINE NEGATIVE (NEGATIVE); OCCULT BLOOD URINE 3+ (NEGATIVE); PH URINE 5.5 (4.5-8.0); PROTEIN URINE 1+ (NEGATIVE); SPECIFIC GRAVITY URINE 1.034 (1.005-1.030)
[2018-03-27 17:11] LABS: OPIATES URINE SCREEN PRESUMTIVE POSITIVE (NEGATIVE); PHENCYCLIDINE URINE SCREEN NEGATIVE (NEGATIVE)
[2018-03-27 17:12] LABS: *AMPHETAMINES SCREEN URINE NEGATIVE (NEGATIVE); *BARBITURATES SCREEN URINE NEGATIVE (NEGATIVE); *BENZODIAZEPINES SCREEN URINE PRESUMTIVE POSITIVE (NEGATIVE); *COCAINE SCREEN URINE NEGATIVE (NEGATIVE); CANNABINOID URINE SCREEN NEGATIVE (NEGATIVE)
[2018-03-27 17:14] LABS: METHADONE URINE SCREEN PRESUMTIVE POSITIVE (NEGATIVE)
[2018-03-27] MEDS: METHADONE HCL 10MG TABLET PO SCH (19:11)
[2018-03-27] MEDS: RISPERIDONE 0.5MG TABLET PO SCH (20:37)
[2018-03-27] MEDS: OSELTAMIVIR 30MG CAPSULE NG SCH (20:37)
[2018-03-28] VITALS (54 sets, daily range): BP systolic 78–158; BP diastolic 52–101
[2018-03-28] MEDS: MIDAZOLAM HCL 100 MG in DEXT 5% WATER 80 ML IV PRN (01:28)
[2018-03-28] MEDS: IPRATROPIUM/ALBUTEROL 0.5-3(2.5)MG/3ML NEB HHN SCH ×4 (02:39→20:43)
[2018-03-28] MEDS: FENTANYL CITRATE/PF 500 MCG in SODIUM CHLORIDE 0.9% 40 ML IV PRN ×2 (05:33→20:54)
[2018-03-28 05:49] LABS: CHLORIDE 103 mEq/L (98-107)
[2018-03-28 05:50] LABS: HEMATOCRIT. 36.5 % (36.0-48.0); HEMOGLOBIN. 11.8 g/dL (12.0-16.0); MEAN CORPUSCULAR HEMOGLOBIN 35.4 pg (28.0-32.0); MEAN CORPUSCULAR VOLUME 109.8 fL (81.0-99.0); MEAN PLATELET VOLUME 9.1 fl (7.4-10.4); PLATELET 114 x1000/uL (130-400); RED BLOOD CELL COUNT 3.33 mill/uL (4.2-5.4); RED CELL DISTRIBUTION WIDTH 15.7 % (11.6-14.6)
[2018-03-28 06:02] LABS: PHOSPHORUS 2.5 mg/dL (2.5-4.9)
[2018-03-28 06:03] LABS: LDL CHOLESTEROL 39 mg/dL (5-100)
[2018-03-28 06:05] LABS: HDL CHOLESTEROL 85 mg/dL (40-59)
[2018-03-28 06:06] LABS: CREATINE KINASE MB FRACTION < 1.0 ng/mL (0.5-3.6)
[2018-03-28 06:07] LABS: CREATINE KINASE 40 IU/L (26-192)
[2018-03-28] MEDS: BUDESONIDE 0.5MG/2ML NEB HHN SCH ×2 (07:41→20:42)
[2018-03-28] MEDS: MULTIVITAMINS,THER W-MINERALS TABLET GT SCH (09:43)
[2018-03-28] MEDS: FOLIC ACID 1MG TABLET GT SCH (09:43)
[2018-03-28] MEDS: THIAMINE HCL 100MG TABLET GT SCH (09:44)
[2018-03-28] MEDS: OSELTAMIVIR 30MG CAPSULE NG SCH ×2 (09:44→21:17)
[2018-03-28] MEDS: PANTOPRAZOLE SODIUM 40 MG/VIAL IV SCH (09:44)
[2018-03-28] MEDS: METHADONE HCL 10MG TABLET PO SCH (09:45)
[2018-03-28] MEDS: LEVOFLOXACIN 250MG PREMIX 50 ML IV SCH (09:45)
[2018-03-28] MEDS ORDERED: MAGNESIUM SULFATE 2 GM in DEXTROSE 5% WATER 50 ML IV NR (10:00)
[2018-03-28 10:30] LABS: PLATELET ESTIMATE DECREASED
[2018-03-28] MEDS: DEXT 5%/0.45% NACL 1000ML 1,000 ML IV SCH ×3 (11:26→21:33)
[2018-03-28] MEDS ORDERED: NOREPINEPHRINE 32 MG in DEXT 5% WATER 468 ML IV PRN (11:45)
[2018-03-28] MEDS ORDERED: SODIUM CHLORIDE 0.45% 500 ML IV ONE (11:45)
[2018-03-28] MEDS ORDERED: ALBUMIN HUMAN 25GM/100ML (25%) IV SCH (11:45)
[2018-03-28] MEDS: AZITHROMYCIN 500 MG in DEXT 5% WATER 250 ML IV SCH (13:09)
[2018-03-28] MEDS: ENOXAPARIN 40MG/0.4ML SYR SUBCUT SCH (13:10)
[2018-03-28] MEDS ORDERED: LIDOCAINE HCL 1% 20ML VIAL (Pyxis) INJ ONE (13:35)
[2018-03-28 14:28] LABS: BG BASE EXCESS 3.4 mmol/L (-2.0-2.0); BG CARBOXYHEMOGLOBIN 0.2 % (0.5-1.5); BG DEOXYHEMOGLOBIN 4.2 % (0.0-5.0); BG FRACTION INSPIRED OXYGEN 40; BG HCO3 ACT 30.2 mmol/L (22.0-26.0); BG METHEMOGLOBIN 0.3 % (0.0-1.5); BG OXYGEN SATURATION 95.8 % (92.0-98.5); BG OXYHEMOGLOBIN 95.3 % (94.0-97.0); BG PCO2 56.8 mmHg (35.0-45.0); BG PH 7.344 (7.350-7.450); BG PO2 83.8 mmHg (75.0-100.0); BG SAMPLE SITE RIGHT RADIAL; BG TIDAL VOLUME(mL) 400 mL; BG TOTAL HEMOGLOBIN 11.4 g/dL (12.0-18.0); BG VENT MODE VENT - A/C; BG VENT RATE 14 set
[2018-03-28] MEDS: RISPERIDONE 0.5MG TABLET PO SCH (21:17)
[2018-03-29] VITALS (50 sets, daily range): BP systolic 87–139; BP diastolic 59–85
[2018-03-29] MEDS: IPRATROPIUM/ALBUTEROL 0.5-3(2.5)MG/3ML NEB HHN SCH ×4 (01:42→20:54)
[2018-03-29] MEDS: MIDAZOLAM HCL 100 MG in DEXT 5% WATER 80 ML IV PRN (03:12)
[2018-03-29] MEDS: DEXT 5%/0.45% NACL 1000ML 1,000 ML IV SCH ×3 (05:06→21:45)
[2018-03-29 05:59] LABS: BASOPHILS % 0.2 % (0.0-2.0); EOSINOPHILS % 0.4 % (0.0-5.0); HEMATOCRIT. 33.8 % (36.0-48.0); HEMOGLOBIN. 10.9 g/dL (12.0-16.0); LYMPHOCYTES % 10.8 % (20.0-50.0); MEAN CORPUSCULAR HEMOGLOBIN 35.4 pg (28.0-32.0); MEAN CORPUSCULAR VOLUME 109.6 fL (81.0-99.0); MEAN PLATELET VOLUME 9.1 fl (7.4-10.4); MONOCYTES % 9.7 % (2.0-8.0); NEUTROPHILS % 78.9 % (40.0-76.0); PLATELET 104 x1000/uL (130-400); RED BLOOD CELL COUNT 3.09 mill/uL (4.2-5.4); RED CELL DISTRIBUTION WIDTH 15.6 % (11.6-14.6)
[2018-03-29 06:02] LABS: CHLORIDE 99 mEq/L (98-107)
[2018-03-29 06:12] LABS: PHOSPHORUS 2.4 mg/dL (2.5-4.9)
[2018-03-29] MEDS: BUDESONIDE 0.5MG/2ML NEB HHN SCH ×2 (08:08→20:54)
[2018-03-29 08:29] LABS: BG BASE EXCESS 4.8 mmol/L (-2.0-2.0); BG CARBOXYHEMOGLOBIN 0.4 % (0.5-1.5); BG DEOXYHEMOGLOBIN 3.2 % (0.0-5.0); BG FRACTION INSPIRED OXYGEN 40; BG HCO3 ACT 32.4 mmol/L (22.0-26.0); BG METHEMOGLOBIN 0.1 % (0.0-1.5); BG OXYGEN SATURATION 96.8 % (92.0-98.5); BG OXYHEMOGLOBIN 96.3 % (94.0-97.0); BG PCO2 63.4 mmHg (35.0-45.0); BG PH 7.326 (7.350-7.450); BG PO2 86.5 mmHg (75.0-100.0); BG SAMPLE SITE RIGHT RADIAL; BG TOTAL HEMOGLOBIN 11.8 g/dL (12.0-18.0); BG VENT MODE VENT - A/C; BG VENT RATE 14 set
[2018-03-29] MEDS: MULTIVITAMINS,THER W-MINERALS TABLET GT SCH (09:13)
[2018-03-29] MEDS: LEVOFLOXACIN 250MG PREMIX 50 ML IV SCH (09:13)
[2018-03-29] MEDS: THIAMINE HCL 100MG TABLET GT SCH (09:13)
[2018-03-29] MEDS: OSELTAMIVIR 30MG CAPSULE NG SCH ×2 (09:14→21:41)
[2018-03-29] MEDS: FOLIC ACID 1MG TABLET GT SCH (09:14)
[2018-03-29] MEDS: METHADONE HCL 10MG TABLET PO SCH (09:15)
[2018-03-29] MEDS: PANTOPRAZOLE SODIUM 40 MG/VIAL IV SCH (09:15)
[2018-03-29] MEDS: ENOXAPARIN 30MG/0.3ML SYR SUBCUT SCH (09:15)
[2018-03-29] MEDS: AZITHROMYCIN 500 MG in DEXT 5% WATER 250 ML IV SCH (12:48)
[2018-03-29] MEDS: FENTANYL CITRATE/PF 500 MCG in SODIUM CHLORIDE 0.9% 40 ML IV PRN (13:45)
[2018-03-29] MEDS ORDERED: SODIUM CHLORIDE 0.9% 500 ML IV NR (14:45)
[2018-03-29] MEDS: RISPERIDONE 0.5MG TABLET PO SCH (21:41)
[2018-03-29] MEDS: ACETAMINOPHEN 325MG TABLET PO PRN (21:41)
[2018-03-30] VITALS (47 sets, daily range): BP systolic 82–143; BP diastolic 53–94
[2018-03-30] MEDS: IPRATROPIUM/ALBUTEROL 0.5-3(2.5)MG/3ML NEB HHN SCH ×4 (01:56→20:20)
[2018-03-30] MEDS: DEXT 5%/0.45% NACL 1000ML 1,000 ML IV SCH (05:38)
[2018-03-30 05:56] LABS: BASOPHILS % 0.3 % (0.0-2.0); EOSINOPHILS % 0.8 % (0.0-5.0); HEMATOCRIT. 33.6 % (36.0-48.0); LYMPHOCYTES % 13.9 % (20.0-50.0); MEAN CORPUSCULAR HEMOGLOBIN 35.6 pg (28.0-32.0); MEAN CORPUSCULAR VOLUME 108.9 fL (81.0-99.0); MEAN PLATELET VOLUME 8.7 fl (7.4-10.4); MONOCYTES % 9.3 % (2.0-8.0); NEUTROPHILS % 75.7 % (40.0-76.0); PLATELET 116 x1000/uL (130-400); RED BLOOD CELL COUNT 3.08 mill/uL (4.2-5.4); RED CELL DISTRIBUTION WIDTH 15.6 % (11.6-14.6)
[2018-03-30 06:18] LABS: CHLORIDE 104 mEq/L (98-107)
[2018-03-30 06:20] LABS: PHOSPHORUS 2.1 mg/dL (2.5-4.9)
[2018-03-30] MEDS: BUDESONIDE 0.5MG/2ML NEB HHN SCH ×2 (07:19→20:21)
[2018-03-30] MEDS: FENTANYL CITRATE/PF 500 MCG in SODIUM CHLORIDE 0.9% 40 ML IV PRN ×2 (08:17→21:14)
[2018-03-30] MEDS: METHADONE HCL 10MG TABLET PO SCH (08:55)
[2018-03-30] MEDS: FOLIC ACID 1MG TABLET GT SCH (08:56)
[2018-03-30] MEDS: PANTOPRAZOLE SODIUM 40 MG/VIAL IV SCH (08:56)
[2018-03-30] MEDS: OSELTAMIVIR 30MG CAPSULE NG SCH ×2 (08:59→21:06)
[2018-03-30] MEDS: MULTIVITAMINS,THER W-MINERALS TABLET GT SCH (08:59)
[2018-03-30] MEDS: THIAMINE HCL 100MG TABLET GT SCH (08:59)
[2018-03-30] MEDS: ENOXAPARIN 30MG/0.3ML SYR SUBCUT SCH (09:00)
[2018-03-30 09:16] LABS: BG BASE EXCESS 2.3 mmol/L (-2.0-2.0); BG CARBOXYHEMOGLOBIN 0.5 % (0.5-1.5); BG DEOXYHEMOGLOBIN 2.5 % (0.0-5.0); BG FRACTION INSPIRED OXYGEN 40; BG HCO3 ACT 29.1 mmol/L (22.0-26.0); BG METHEMOGLOBIN 0.3 % (0.0-1.5); BG OXYGEN SATURATION 97.5 % (92.0-98.5); BG OXYHEMOGLOBIN 96.7 % (94.0-97.0); BG PCO2 55.1 mmHg (35.0-45.0); BG PO2 94.8 mmHg (75.0-100.0); BG SAMPLE SITE RIGHT RADIAL; BG TIDAL VOLUME(mL) 400 mL; BG TOTAL HEMOGLOBIN 11.8 g/dL (12.0-18.0); BG VENT MODE VENT - A/C; BG VENT RATE 16 set
[2018-03-30] MEDS: LEVOFLOXACIN 250MG PREMIX 50 ML IV SCH (09:18)
[2018-03-30] MEDS ORDERED: POTASSIUM PHOS,M-BASIC-D-BASIC 15 MMOL in DEXT 5% WATER 245 ML IV SCH (10:00)
[2018-03-30] MEDS ORDERED: MAGNESIUM SULFATE 2 GM in DEXTROSE 5% WATER 50 ML IV SCH (10:00)
[2018-03-30] MEDS: MIDAZOLAM HCL 100 MG in DEXT 5% WATER 80 ML IV PRN (13:53)
[2018-03-30] MEDS: AZITHROMYCIN 500 MG in DEXT 5% WATER 250 ML IV SCH (13:56)
[2018-03-30 15:26] LABS: TOTAL IRON BINDING CAPACITY 236 ug/dL (250-450)
[2018-03-30] MEDS: ACETAMINOPHEN 325MG TABLET PO PRN (21:06)
[2018-03-30] MEDS: RISPERIDONE 0.5MG TABLET PO SCH (21:06)
[2018-03-31] VITALS (64 sets, daily range): BP systolic 92–195; BP diastolic 66–130
[2018-03-31] MEDS: IPRATROPIUM/ALBUTEROL 0.5-3(2.5)MG/3ML NEB HHN PRN ×2 (00:25→04:21)
[2018-03-31 05:53] LABS: BASOPHILS % 0.2 % (0.0-2.0); EOSINOPHILS % 0.5 % (0.0-5.0); HEMATOCRIT. 37.3 % (36.0-48.0); HEMOGLOBIN. 12.1 g/dL (12.0-16.0); LYMPHOCYTES % 20.4 % (20.0-50.0); MEAN CORPUSCULAR VOLUME 108.2 fL (81.0-99.0); MEAN PLATELET VOLUME 8.4 fl (7.4-10.4); MONOCYTES % 14.3 % (2.0-8.0); NEUTROPHILS % 64.6 % (40.0-76.0); PLATELET 151 x1000/uL (130-400); RED BLOOD CELL COUNT 3.45 mill/uL (4.2-5.4); RED CELL DISTRIBUTION WIDTH 15.2 % (11.6-14.6)
[2018-03-31 06:07] LABS: CHLORIDE 105 mEq/L (98-107)
[2018-03-31] MEDS: BUDESONIDE 0.5MG/2ML NEB HHN SCH ×2 (07:43→19:44)
[2018-03-31] MEDS: IPRATROPIUM/ALBUTEROL 0.5-3(2.5)MG/3ML NEB HHN SCH ×3 (07:44→19:44)
[2018-03-31] MEDS: FENTANYL CITRATE/PF 500 MCG in SODIUM CHLORIDE 0.9% 40 ML IV PRN (08:10)
[2018-03-31] MEDS: THIAMINE HCL 100MG TABLET GT SCH (08:29)
[2018-03-31] MEDS: ENOXAPARIN 30MG/0.3ML SYR SUBCUT SCH (08:29)
[2018-03-31] MEDS: FOLIC ACID 1MG TABLET GT SCH (08:29)
[2018-03-31] MEDS: METHADONE HCL 10MG TABLET PO SCH (08:29)
[2018-03-31] MEDS: MULTIVITAMINS,THER W-MINERALS TABLET GT SCH (08:29)
[2018-03-31] MEDS: PANTOPRAZOLE SODIUM 40 MG/VIAL IV SCH (08:29)
[2018-03-31] MEDS: LEVOFLOXACIN 250MG PREMIX 50 ML IV SCH (08:34)
[2018-03-31] MEDS: MIDAZOLAM HCL 100 MG in DEXT 5% WATER 80 ML IV PRN (08:39)
[2018-03-31] MEDS: OSELTAMIVIR 30MG CAPSULE NG SCH ×2 (08:39→20:58)
[2018-03-31] MEDS: AZITHROMYCIN 500 MG in DEXT 5% WATER 250 ML IV SCH (14:36)
[2018-03-31] MEDS: ACETAMINOPHEN 325MG TABLET PO PRN (20:58)
[2018-03-31] MEDS: RISPERIDONE 0.5MG TABLET PO SCH (20:58)
[2018-04-01] VITALS (56 sets, daily range): BP systolic 126–187; BP diastolic 76–119
[2018-04-01] MEDS: IPRATROPIUM/ALBUTEROL 0.5-3(2.5)MG/3ML NEB HHN SCH ×5 (00:49→20:25)
[2018-04-01] MEDS: IPRATROPIUM/ALBUTEROL 0.5-3(2.5)MG/3ML NEB HHN PRN (04:27)
[2018-04-01 06:34] LABS: CHLORIDE 103 mEq/L (98-107)
[2018-04-01 07:14] LABS: HIV SCREEN 4G Non Reactive (Non Reactive)
[2018-04-01] MEDS: FENTANYL CITRATE/PF 500 MCG in SODIUM CHLORIDE 0.9% 40 ML IV PRN (07:14)
[2018-04-01] MEDS: BUDESONIDE 0.5MG/2ML NEB HHN SCH ×3 (08:49→20:25)
[2018-04-01] MEDS: MULTIVITAMINS,THER W-MINERALS TABLET GT SCH (08:55)
[2018-04-01] MEDS: METHADONE HCL 10MG TABLET PO SCH (08:55)
[2018-04-01] MEDS: THIAMINE HCL 100MG TABLET GT SCH (08:55)
[2018-04-01] MEDS: FOLIC ACID 1MG TABLET GT SCH (08:55)
[2018-04-01] MEDS: OSELTAMIVIR 30MG CAPSULE NG SCH ×2 (08:55→21:40)
[2018-04-01] MEDS: ENOXAPARIN 30MG/0.3ML SYR SUBCUT SCH (08:56)
[2018-04-01] MEDS: PANTOPRAZOLE SODIUM 40 MG/VIAL IV SCH (08:56)
[2018-04-01] MEDS: LEVOFLOXACIN 250MG PREMIX 50 ML IV SCH (08:56)
[2018-04-01 09:02] LABS: BASOPHILS % 0.3 % (0.0-2.0); EOSINOPHILS % 0.7 % (0.0-5.0); HEMATOCRIT. 36.9 % (36.0-48.0); HEMOGLOBIN. 12.1 g/dL (12.0-16.0); LYMPHOCYTES % 14.8 % (20.0-50.0); MEAN CORPUSCULAR VOLUME 106.7 fL (81.0-99.0); MEAN PLATELET VOLUME 8.1 fl (7.4-10.4); MONOCYTES % 11.1 % (2.0-8.0); NEUTROPHILS % 73.1 % (40.0-76.0); PLATELET 179 x1000/uL (130-400); RED BLOOD CELL COUNT 3.46 mill/uL (4.2-5.4); RED CELL DISTRIBUTION WIDTH 15.2 % (11.6-14.6)
[2018-04-01] MEDS ORDERED: LORAZEPAM 2MG/ML CPJ IV NR (14:45)
[2018-04-01 14:59] LABS: BG CARBOXYHEMOGLOBIN 0.6 % (0.5-1.5); BG DEOXYHEMOGLOBIN 4.1 % (0.0-5.0); BG FRACTION INSPIRED OXYGEN 40; BG HCO3 ACT 38.1 mmol/L (22.0-26.0); BG METHEMOGLOBIN 0.2 % (0.0-1.5); BG OXYGEN SATURATION 95.9 % (92.0-98.5); BG OXYHEMOGLOBIN 95.1 % (94.0-97.0); BG PO2 81.7 mmHg (75.0-100.0); BG PRESSURE SUPPORT 8; BG SAMPLE SITE RIGHT BRACHIAL; BG TOTAL HEMOGLOBIN 12.4 g/dL (12.0-18.0); BG VENT MODE VENT - CPAP
[2018-04-01] MEDS: METHYLPREDNISOLONE SOD SUCC 125 MG/2 ML VIAL IV SCH (15:26)
[2018-04-01] MEDS: AZITHROMYCIN 500 MG in DEXT 5% WATER 250 ML IV SCH (15:28)
[2018-04-01] MEDS: RISPERIDONE 0.5MG TABLET PO SCH (21:41)
[2018-04-02] VITALS (34 sets, daily range): BP systolic 131–187; BP diastolic 81–117
[2018-04-02] MEDS: METHYLPREDNISOLONE SOD SUCC 125 MG/2 ML VIAL IV SCH ×3 (00:01→16:41)
[2018-04-02] MEDS: IPRATROPIUM/ALBUTEROL 0.5-3(2.5)MG/3ML NEB HHN SCH ×4 (01:25→20:00)
[2018-04-02] MEDS: CLONIDINE 0.1MG TABLET NG PRN (06:17)
[2018-04-02 08:30] LABS: BG BASE EXCESS 15.3 mmol/L (-2.0-2.0); BG CARBOXYHEMOGLOBIN 0.9 % (0.5-1.5); BG DEOXYHEMOGLOBIN 5.5 % (0.0-5.0); BG FRACTION INSPIRED OXYGEN 36; BG HCO3 ACT 41.3 mmol/L (22.0-26.0); BG METHEMOGLOBIN 0.3 % (0.0-1.5); BG OXYGEN SATURATION 94.4 % (92.0-98.5); BG OXYHEMOGLOBIN 93.3 % (94.0-97.0); BG PCO2 55.8 mmHg (35.0-45.0); BG PH 7.487 (7.350-7.450); BG SAMPLE SITE RIGHT BRACHIAL; BG TOTAL HEMOGLOBIN 13.6 g/dL (12.0-18.0); BG VENT MODE NASAL CANNULA
[2018-04-02] MEDS: OSELTAMIVIR 30MG CAPSULE NG SCH ×2 (09:00→21:42)
[2018-04-02] MEDS: BUDESONIDE 0.5MG/2ML NEB HHN SCH ×2 (09:01→20:00)
[2018-04-02] MEDS: ENOXAPARIN 30MG/0.3ML SYR SUBCUT SCH (10:03)
[2018-04-02] MEDS: METHADONE HCL 10MG TABLET PO SCH (10:04)
[2018-04-02] MEDS: PANTOPRAZOLE SODIUM 40 MG/VIAL IV SCH (10:04)
[2018-04-02] MEDS: LOSARTAN POTASSIUM 50 MG TABLET PO SCH (10:05)
[2018-04-02] MEDS: AMLODIPINE 5MG TABLET PO SCH ×2 (10:05→21:42)
[2018-04-02] MEDS: MULTIVITAMINS,THER W-MINERALS TABLET GT SCH (10:05)
[2018-04-02] MEDS: FOLIC ACID 1MG TABLET GT SCH (10:05)
[2018-04-02] MEDS: LEVOFLOXACIN 250MG PREMIX 50 ML IV SCH (10:06)
[2018-04-02] MEDS: THIAMINE HCL 100MG TABLET GT SCH (10:06)
[2018-04-02] MEDS: AZITHROMYCIN 500 MG in DEXT 5% WATER 250 ML IV SCH (14:00)
[2018-04-02] MEDS: ACETAMINOPHEN 325MG TABLET PO PRN (19:53)
[2018-04-02] MEDS: RISPERIDONE 0.5MG TABLET PO SCH (21:41)
[2018-04-03] VITALS (8 sets, daily range): BP systolic 107–157; BP diastolic 76–98
[2018-04-03] MEDS: IPRATROPIUM/ALBUTEROL 0.5-3(2.5)MG/3ML NEB HHN SCH ×4 (00:17→20:43)
[2018-04-03] MEDS: METHYLPREDNISOLONE SOD SUCC 125 MG/2 ML VIAL IV SCH ×2 (00:20→10:46)
[2018-04-03 06:09] LABS: HEMATOCRIT 35.9 % (36.0-48.0); HEMOGLOBIN 12.3 g/dL (12.0-16.0); MEAN CORPUSCULAR HEMOGLOBIN 35.5 pg (28.0-32.0); MEAN CORPUSCULAR VOLUME 103.6 fL (81.0-99.0); PLATELET 267 x1000/uL (130-400); RED BLOOD CELL COUNT 3.47 mill/uL (4.2-5.4); RED CELL DISTRIBUTION WIDTH 15.5 % (11.6-14.6)
[2018-04-03 07:55] LABS: CHLORIDE 97 mEq/L (98-107)
[2018-04-03] MEDS: ENOXAPARIN 30MG/0.3ML SYR SUBCUT SCH (08:49)
[2018-04-03] MEDS: PANTOPRAZOLE SODIUM 40 MG/VIAL IV SCH (08:49)
[2018-04-03] MEDS: METHADONE HCL 10MG TABLET PO SCH (08:50)
[2018-04-03] MEDS: THIAMINE HCL 100MG TABLET GT SCH (08:51)
[2018-04-03] MEDS: AMLODIPINE 5MG TABLET PO SCH ×2 (08:51→21:02)
[2018-04-03] MEDS: FOLIC ACID 1MG TABLET GT SCH (08:51)
[2018-04-03] MEDS: MULTIVITAMINS,THER W-MINERALS TABLET GT SCH (08:51)
[2018-04-03] MEDS: LOSARTAN POTASSIUM 50 MG TABLET PO SCH ×2 (08:51→21:01)
[2018-04-03] MEDS: OSELTAMIVIR 30MG CAPSULE NG SCH ×2 (10:47→21:00)
[2018-04-03] MEDS: AZITHROMYCIN 500 MG in DEXT 5% WATER 250 ML IV SCH (12:54)
[2018-04-03] MEDS: METHYLPREDNISOLONE SOD SUCC 40 MG/ML VIAL IV SCH (17:17)
[2018-04-03] MEDS: RISPERIDONE 0.5MG TABLET PO SCH (21:01)
[2018-04-03] MEDS: ACETAMINOPHEN 325MG TABLET PO PRN (21:11)
[2018-04-04] VITALS: BP 130/88
[2018-04-04] MEDS: IPRATROPIUM/ALBUTEROL 0.5-3(2.5)MG/3ML NEB HHN SCH ×4 (00:57→20:02)
[2018-04-04] MEDS: ACETAMINOPHEN 325MG TABLET PO PRN ×2 (03:38→21:59)
[2018-04-04 04:00] VITALS: BP 124/83
[2018-04-04 07:21] LABS: BASOPHILS % 0.1 % (0.0-2.0); HEMATOCRIT. 34.3 % (36.0-48.0); HEMOGLOBIN. 11.6 g/dL (12.0-16.0); LYMPHOCYTES % 9.3 % (20.0-50.0); MEAN CORPUSCULAR VOLUME 103.5 fL (81.0-99.0); MEAN PLATELET VOLUME 7.3 fl (7.4-10.4); MONOCYTES % 9.6 % (2.0-8.0); PLATELET 299 x1000/uL (130-400); RED BLOOD CELL COUNT 3.32 mill/uL (4.2-5.4); RED CELL DISTRIBUTION WIDTH 15.4 % (11.6-14.6)
[2018-04-04 08:14] VITALS: BP 154/94
[2018-04-04 09:02] LABS: CHLORIDE 95 mEq/L (98-107)
[2018-04-04] MEDS: METHADONE HCL 10MG TABLET PO SCH (09:37)
[2018-04-04] MEDS: LOSARTAN POTASSIUM 50 MG TABLET PO SCH ×2 (09:40→21:58)
[2018-04-04] MEDS: THIAMINE HCL 100MG TABLET GT SCH (09:40)
[2018-04-04] MEDS: MULTIVITAMINS,THER W-MINERALS TABLET GT SCH (09:40)
[2018-04-04] MEDS: FOLIC ACID 1MG TABLET GT SCH (09:40)
[2018-04-04] MEDS: AMLODIPINE 5MG TABLET PO SCH ×2 (09:42→21:58)
[2018-04-04] MEDS: ENOXAPARIN 30MG/0.3ML SYR SUBCUT SCH (09:43)
[2018-04-04] MEDS: LEVOFLOXACIN 250MG PREMIX 50 ML IV SCH (09:44)
[2018-04-04] MEDS: METHYLPREDNISOLONE SOD SUCC 40 MG/ML VIAL IV SCH ×2 (09:45→16:55)
[2018-04-04] MEDS: PANTOPRAZOLE SODIUM 40 MG/VIAL IV SCH (09:45)
[2018-04-04 12:00] VITALS: BP 133/88
[2018-04-04] MEDS: AZITHROMYCIN 500 MG in DEXT 5% WATER 250 ML IV SCH (13:38)
[2018-04-04 16:18] VITALS: BP 121/75
[2018-04-04] MEDS ORDERED: POTASSIUM CHLORIDE 20MEQ TABLET SR PO NR (17:52)
[2018-04-04 20:00] VITALS: BP 138/90
[2018-04-04] MEDS: RISPERIDONE 0.5MG TABLET PO SCH (21:58)
[2018-04-05] VITALS: BP 148/90
[2018-04-05] MEDS: IPRATROPIUM/ALBUTEROL 0.5-3(2.5)MG/3ML NEB HHN SCH ×3 (01:31→13:58)
[2018-04-05 04:00] VITALS: BP 161/96
[2018-04-05] MEDS: CLONIDINE 0.1MG TABLET NG PRN (06:38)
[2018-04-05 07:15] LABS: BASOPHILS % 0.1 % (0.0-2.0); HEMATOCRIT. 35.7 % (36.0-48.0); LYMPHOCYTES % 11.3 % (20.0-50.0); MEAN CORPUSCULAR VOLUME 104.3 fL (81.0-99.0); MEAN PLATELET VOLUME 7.5 fl (7.4-10.4); MONOCYTES % 10.3 % (2.0-8.0); NEUTROPHILS % 78.3 % (40.0-76.0); PLATELET 337 x1000/uL (130-400); RED BLOOD CELL COUNT 3.43 mill/uL (4.2-5.4); RED CELL DISTRIBUTION WIDTH 15.6 % (11.6-14.6)
[2018-04-05] MEDS: FOLIC ACID 1MG TABLET GT SCH (08:10)
[2018-04-05] MEDS: MULTIVITAMINS,THER W-MINERALS TABLET GT SCH (08:10)
[2018-04-05] MEDS: THIAMINE HCL 100MG TABLET GT SCH (08:10)
[2018-04-05] MEDS: LOSARTAN POTASSIUM 50 MG TABLET PO SCH (08:10)
[2018-04-05] MEDS: AMLODIPINE 5MG TABLET PO SCH (08:11)
[2018-04-05] MEDS: METHADONE HCL 10MG TABLET PO SCH (08:19)
[2018-04-05] MEDS: METHYLPREDNISOLONE SOD SUCC 40 MG/ML VIAL IV SCH (08:19)
[2018-04-05] MEDS: ENOXAPARIN 30MG/0.3ML SYR SUBCUT SCH (08:20)
[2018-04-05 08:36] LABS: CHLORIDE 95 mEq/L (98-107)
[2018-04-05] MEDS ORDERED: AZITHROMYCIN 500 MG TABLET PO SCH (09:00)
[2018-04-05] MEDS ORDERED: LEVOFLOXACIN 250MG TABLET PO SCH (11:00)
[2018-04-05 12:00] VITALS: BP 107/78
[2018-04-05] MEDS ORDERED: FOLI-43 GT (16:01)
[2018-04-05] MEDS ORDERED: THIA100T72 GT (16:01)
[2018-04-05] MEDS ORDERED: RISP05 PO (16:01)
[2018-04-05] MEDS ORDERED: LOSA50TA3 PO (16:01)
[2018-04-05] MEDS ORDERED: AMLO5TAB88 PO (16:01)
[2018-04-05] MEDS ORDERED: MED4 MT (16:06)
[2018-04-05] MEDS ORDERED: SEREDK ORI (16:06)
[2018-04-05] MEDS ORDERED: ALBU18HF2 IH (16:06)
[2018-04-05 16:41] VITALS: BP 146/89
[2018-04-07 13:11] LABS: 7-AMINOCLONAZEPAM CONFIRM Negative (.); ALPRAZOLAM CONFIRM Negative (.); BARBITURATE SCREEN Negative ug/mL (Cutoff:0.1); BENZODIAZEPINE SCREEN ++POSITIVE++ ng/mL (Cutoff:20); CHLORDIAZEPOXIDE CONFIRM 163 ng/mL (.); CLONAZEPAM CONFIRM Negative (.); DESMETHYLCHLORDIAZEPOXIDE 97 ng/mL (.); DIAZEPAM CONFIRM Negative (.); FLURAZEPAM CONFIRM Negative (.); LORAZEPAM CONFIRM Negative (.); MIDAZOLAM CONFIRM Negative (.); OPIATES SCREEN Negative ng/mL (Cutoff:5); OXAZEPAM CONFIRM Negative (.); PHENCYCLIDINE SCREEN Negative ng/mL (Cutoff:8); TEMAZEPAM CONFIRM Negative (.); TRIAZOLAM CONFIRM Negative (.)
== END 2018-04-05 17:40 | disposition home or self-care (01) | DRG 130 ==
LOC: ER 01:05 → MICUSO 04:10 → EDBEDREQTM 04:15 → EDBEDREQ 04:15 → EDBEDREQSVC 05:20 → ENRESERV 07:37 → 6WST 04-03 00:40
PROVIDERS: ADMIT Internal Medicine; ATTEND Internal Medicine
PROC: 5A1955Z Respiratory Ventilation, Greater than 96 Consecutive Hours (ICD-10-PCS; principal; 2018-03-27)
PROC: 0BH17EZ Insertion of Endotracheal Airway into Trachea, Via Natural or Artificial Opening (ICD-10-PCS; 2018-03-27)
PROC: 02HV33Z Insertion of Infusion Device into Superior Vena Cava, Percutaneous Approach (ICD-10-PCS; 2018-03-28)
PROC: B548ZZA Ultrasonography of Superior Vena Cava, Guidance (ICD-10-PCS; 2018-03-28)
DX: J96.02 Acute respiratory failure with hypercapnia (principal); E43 Unspecified severe protein-calorie malnutrition; J10.00 Influenza due to other identified influenza virus with unspecified type of pneumonia; G82.50 Quadriplegia, unspecified; D61.818 Other pancytopenia; E87.0 Hyperosmolality and hypernatremia; I95.9 Hypotension, unspecified; E87.70 Fluid overload, unspecified; J44.1 Chronic obstructive pulmonary disease with (acute) exacerbation; J44.0 Chronic obstructive pulmonary disease with (acute) lower respiratory infection; F11.23 Opioid dependence with withdrawal; B19.20 Unspecified viral hepatitis C without hepatic coma; M41.86 Other forms of scoliosis, lumbar region; M47.897 Other spondylosis, lumbosacral region; M48.061 Spinal stenosis, lumbar region without neurogenic claudication; F10.10 Alcohol abuse, uncomplicated; K59.00 Constipation, unspecified; I10 Essential (primary) hypertension; E87.6 Hypokalemia; F17.210 Nicotine dependence, cigarettes, uncomplicated; Z86.73 Personal history of transient ischemic attack (TIA), and cerebral infarction without residual deficits; Z68.1 Body mass index [BMI] 19.9 or less, adult; Z88.0 Allergy status to penicillin; Z98.1 Arthrodesis status
CPT/HCPCS: 31500; 36415; 36569; 36600; 71045; 74018; 76937; 80048; 80061; 80305; 80307; 82375; 82550; 82553; 82805; 83540; 83550; 83735; 83880; 84100; 84439; 84443; 84481; 84484; 85027; 87070; 87389; 87804; 92610; 93005; 93306; 93970; 94003; 94618; 94640; 96365; 96366; 96375; 97116; 97162; 97166; 99291; A6261; C1725; C1769; C9113; J0330; J0456; J1650; J1956; J2060; J2250; J2704; J2920; J2930; J3010; J3475; J3490; J7030; J7050; J7060; J7611; J7620; J7626; P9047

== ENCOUNTER 2018-07-28 11:37 | Inpatient (IN) | payer MEDICAID ==
[~2018-07-28] VITALS: Ht 157.5 cm; Wt 42.2 kg
[~2018-07-28 11:37] MED LIST changes: +ALBU18HF2 IH; +AMLO5TAB88 PO; +FOLI-43 GT; +LOSA50TA3 PO; +MED4 MT; +SEREDK ORI; +THIA100T72 GT
[2018-07-28] MEDS ORDERED: SODIUM CHLORIDE 0.9% 1000ML BAG (SEPSIS BOLUS) IV ONE (12:30)
[2018-07-28] MEDS ORDERED: LEVOFLOXACIN 750MG PREMIX 150 ML IV ONE (12:30)
[2018-07-28 12:49] LABS: HEMATOCRIT. 29.4 % (36.0-48.0); HEMOGLOBIN. 9.9 g/dL (12.0-16.0); MEAN CORPUSCULAR HEMOGLOBIN 33.6 pg (28.0-32.0); MEAN PLATELET VOLUME 8.3 fl (7.4-10.4); PLATELET 172 x1000/uL (130-400); RED BLOOD CELL COUNT 2.94 mill/uL (4.2-5.4); RED CELL DISTRIBUTION WIDTH 13.5 % (11.6-14.6)
[2018-07-28 12:55] LABS: CHLORIDE 96 mEq/L (98-107)
[2018-07-28 12:56] LABS: INR 1.3; PROTHROMBIN TIME 13.4 sec (9.1-11.1)
[2018-07-28 13:15] LABS: PLATELET ESTIMATE NORMAL
[2018-07-28] MEDS ORDERED: DEXTROSE 50% WATER 50ML SYRINGE IV ONE (13:15)
[2018-07-28] MEDS ORDERED: POTASSIUM CHLORIDE INJ 40 MEQ in DEXT 5% WATER 250 ML IV ONE (13:15)
[2018-07-28] MEDS ORDERED: ASPIRIN 81MG TABLET PO ONE (13:15)
[2018-07-28] MEDS ORDERED: POTASSIUM CHLORIDE 20MEQ TABLET SR PO ONE (13:15)
[2018-07-28 13:20] LABS: CLARITY URINE CLOUDY (CLEAR); COLOR URINE YELLOW (YELLOW); KETONES URINE TRACE (NEGATIVE); LEUKOCYTE ESTERASE URINE NEGATIVE (NEGATIVE); NITRITE URINE NEGATIVE (NEGATIVE); OCCULT BLOOD URINE 3+ (NEGATIVE); PH URINE 5.5 (4.5-8.0); PROTEIN URINE 2+ (NEGATIVE); SPECIFIC GRAVITY URINE 1.016 (1.005-1.030); UROBILINOGEN URINE 0.2 E.U./dL (0.2-1.0)
[2018-07-28] MEDS ORDERED: VANCOMYCIN 1 G PREMIX 200 ML IV SCH (14:45)
[2018-07-28] MEDS ORDERED: DIPHENHYDRAMINE 50MG/ML VIAL IV ONE (14:45)
[2018-07-28] MEDS ORDERED: AZITHROMYCIN 500 MG in DEXT 5% WATER 250 ML IV SCH (14:45)
[2018-07-28] MEDS: KCL 20MEQ/100ML PREMIX 100 ML IV SCH ×2 (15:03→17:38)
[2018-07-28] MEDS ORDERED: ONDANSETRON HCL 4MG/2ML INJ IV PRN (16:45)
[2018-07-28] MEDS ORDERED: CLONIDINE 0.1MG TABLET PO PRN (16:45)
[2018-07-28] MEDS: ENOXAPARIN 40MG/0.4ML SYR SUBCUT SCH (19:02)
[2018-07-28] MEDS: METHYLPREDNISOLONE SOD SUCC 125 MG/2 ML VIAL IV SCH ×2 (19:02→23:55)
[2018-07-28] MEDS: THIAMINE HCL 100MG TABLET PO SCH (19:03)
[2018-07-28] MEDS: HYDROCODONE/ACETAMINOPHEN 5/325MG TABLET PO PRN (19:04)
[2018-07-28 20:00] VITALS: BP 129/82
[2018-07-28 22:00] VITALS: BP 143/93
[2018-07-28] MEDS: CEFTRIAXONE 1 G PREMIX 50 ML IV SCH (22:20)
[2018-07-28] MEDS: LORAZEPAM 2MG/ML CPJ IV PRN (22:36)
[2018-07-28 23:26] VITALS: BP 149/86
[2018-07-28 23:42] LABS: CREATINE KINASE MB FRACTION 46.8 ng/mL (0.5-3.6)
[2018-07-29] VITALS (12 sets, daily range): BP systolic 112–158; BP diastolic 65–100
[2018-07-29] MEDS: METHYLPREDNISOLONE SOD SUCC 125 MG/2 ML VIAL IV SCH ×3 (05:45→17:16)
[2018-07-29 07:56] LABS: CREATINE KINASE MB FRACTION 20.1 ng/mL (0.5-3.6)
[2018-07-29 09:14] LABS: HEMATOCRIT. 28.9 % (36.0-48.0); HEMOGLOBIN. 9.7 g/dL (12.0-16.0); MEAN CORPUSCULAR HEMOGLOBIN 33.9 pg (28.0-32.0); MEAN CORPUSCULAR VOLUME 101.2 fL (81.0-99.0); PLATELET 121 x1000/uL (130-400); RED BLOOD CELL COUNT 2.86 mill/uL (4.2-5.4); RED CELL DISTRIBUTION WIDTH 13.3 % (11.6-14.6)
[2018-07-29 09:21] LABS: CHLORIDE 100 mEq/L (98-107)
[2018-07-29] MEDS: THIAMINE HCL 100MG TABLET PO SCH (10:14)
[2018-07-29] MEDS: ASPIRIN 81MG EC TABLET PO SCH (10:14)
[2018-07-29] MEDS: MORPHINE SULFATE 4 MG/ML CPJ (NOT FOR IM USE) IV PRN ×2 (10:15→16:35)
[2018-07-29 11:58] LABS: *AMPHETAMINES SCREEN URINE NEGATIVE (NEGATIVE); *BARBITURATES SCREEN URINE NEGATIVE (NEGATIVE); *BENZODIAZEPINES SCREEN URINE NEGATIVE (NEGATIVE); *COCAINE SCREEN URINE NEGATIVE (NEGATIVE)
[2018-07-29 11:59] LABS: CANNABINOID URINE SCREEN NEGATIVE (NEGATIVE); PHENCYCLIDINE URINE SCREEN NEGATIVE (NEGATIVE)
[2018-07-29 12:09] LABS: OPIATES URINE SCREEN NEGATIVE (NEGATIVE)
[2018-07-29 12:10] LABS: PLATELET ESTIMATE DECREASED
[2018-07-29 12:10] LABS: METHADONE URINE SCREEN PRESUMTIVE POSITIVE (NEGATIVE)
[2018-07-29] MEDS: ENOXAPARIN 40MG/0.4ML SYR SUBCUT SCH (17:17)
[2018-07-29] MEDS ORDERED: AZITHROMYCIN 500 MG in DEXT 5% WATER 250 ML IV SCH (18:00)
[2018-07-29] MEDS: CEFTRIAXONE 1 G PREMIX 50 ML IV SCH (20:07)
[2018-07-29] MEDS: LORAZEPAM 2MG/ML CPJ IV PRN ×2 (20:13→23:43)
[2018-07-29] MEDS: METHYLPREDNISOLONE SOD SUCC 40 MG/ML VIAL IV SCH (23:13)
[2018-07-29] MEDS: SODIUM CHLORIDE 0.9% 1,000 ML IV SCH (23:56)
[2018-07-30] VITALS (12 sets, daily range): BP systolic 128–154; BP diastolic 81–93
[2018-07-30] MEDS: HYDROCODONE/ACETAMINOPHEN 5/325MG TABLET PO PRN ×3 (04:47→16:33)
[2018-07-30] MEDS: METHYLPREDNISOLONE SOD SUCC 40 MG/ML VIAL IV SCH ×3 (04:48→17:05)
[2018-07-30 07:07] LABS: HEMATOCRIT. 29.3 % (36.0-48.0); HEMOGLOBIN. 9.9 g/dL (12.0-16.0); MEAN CORPUSCULAR HEMOGLOBIN 33.5 pg (28.0-32.0); MEAN CORPUSCULAR VOLUME 99.7 fL (81.0-99.0); PLATELET 123 x1000/uL (130-400); RED BLOOD CELL COUNT 2.94 mill/uL (4.2-5.4); RED CELL DISTRIBUTION WIDTH 13.4 % (11.6-14.6)
[2018-07-30 07:15] LABS: CHLORIDE 98 mEq/L (98-107)
[2018-07-30 07:22] LABS: ETHANOL BLOOD < 10 mg/dL
[2018-07-30 07:24] LABS: PHOSPHORUS 2.2 mg/dL (2.5-4.9)
[2018-07-30] MEDS: THIAMINE HCL 100MG TABLET PO SCH (08:57)
[2018-07-30] MEDS: ASPIRIN 81MG EC TABLET PO SCH (08:57)
[2018-07-30] MEDS: SODIUM CHLORIDE 0.9% 1,000 ML IV SCH ×2 (11:20→20:57)
[2018-07-30 16:59] LABS: PLATELET ESTIMATE DECREASED
[2018-07-30] MEDS: ENOXAPARIN 40MG/0.4ML SYR SUBCUT SCH (17:04)
[2018-07-30] MEDS ORDERED: AZITHROMYCIN 500 MG in DEXT 5% WATER 250 ML IV SCH (18:00)
[2018-07-30] MEDS ORDERED: CEFTRIAXONE 1 G PREMIX 50 ML IV SCH (18:30)
[2018-07-30] MEDS ORDERED: POTASSIUM-SODIUM PHOSPHATE POWDER PACKET PO NR ×2 (19:30)
[2018-07-30 19:45] LABS: AMYLASE 466 IU/L (25-115)
[2018-07-30] MEDS ORDERED: MAGNESIUM 2 G PREMIX 50 ML IV SCH (20:00)
[2018-07-31] VITALS (7 sets, daily range): BP systolic 149–166; BP diastolic 84–154
[2018-07-31] MEDS: LORAZEPAM 2MG/ML CPJ IV PRN ×2 (00:48→00:58)
[2018-07-31] MEDS: THIAMINE HCL 100MG TABLET PO SCH (08:47)
[2018-07-31] MEDS: ASPIRIN 81MG EC TABLET PO SCH (08:47)
[2018-07-31] MEDS: HYDROCODONE/ACETAMINOPHEN 5/325MG TABLET PO PRN ×2 (08:50→13:46)
[2018-07-31] MEDS ORDERED: POTASSIUM CHLORIDE 20MEQ TABLET SR PO SCH (09:00)
[2018-07-31] MEDS ORDERED: METHYLPREDNISOLONE SOD SUCC 40 MG/ML VIAL IV SCH (09:00)
== END 2018-07-31 16:12 | disposition home or self-care (01) | DRG 720 ==
LOC: ER 11:49 → 5EST 14:31 → EDBEDREQ 14:43 → ENRESERV 15:15
PROVIDERS: ADMIT Internal Medicine Nephrology; ATTEND Internal Medicine Nephrology
DX: A41.9 Sepsis, unspecified organism (principal); K85.90 Acute pancreatitis without necrosis or infection, unspecified; M62.82 Rhabdomyolysis; J44.1 Chronic obstructive pulmonary disease with (acute) exacerbation; D63.8 Anemia in other chronic diseases classified elsewhere; E11.9 Type 2 diabetes mellitus without complications; E78.00 Pure hypercholesterolemia, unspecified; F17.200 Nicotine dependence, unspecified, uncomplicated; I10 Essential (primary) hypertension; N39.0 Urinary tract infection, site not specified; G89.29 Other chronic pain; Z79.899 Other long term (current) drug therapy
CPT/HCPCS: 36415; 71045; 74176; 80048; 80305; 82150; 82550; 82553; 82962; 83605; 83735; 84100; 84145; 84484; 87804; 93005; 93306; 97162; 99291; J0456; J0696; J1200; J1650; J1956; J2060; J2270; J2405; J2920; J2930; J3370; J3475; J3480; J7030; J7050; J7060

== ENCOUNTER 2018-09-20 13:18 | Inpatient (IN) | payer MEDICAID ==
[~2018-09-20] VITALS: Ht 160 cm; Wt 43.1 kg
[2018-09-20] MEDS ORDERED: ONDANSETRON HCL 4MG/2ML INJ IV STA (13:49)
[2018-09-20] MEDS ORDERED: MORPHINE SULFATE 4 MG/ML CPJ (NOT FOR IM USE) IV STA (13:49)
[2018-09-20] MEDS ORDERED: SODIUM CHLORIDE 0.9% 1,000 ML IV ONE (13:49)
[2018-09-20 14:45] LABS: BASOPHILS % 0.2 % (0.0-2.0); EOSINOPHILS % 0.8 % (0.0-5.0); HEMATOCRIT. 36.3 % (36.0-48.0); LYMPHOCYTES % 26.9 % (20.0-50.0); MEAN CORPUSCULAR HEMOGLOBIN 33.5 pg (28.0-32.0); MEAN CORPUSCULAR VOLUME 101.7 fL (81.0-99.0); MEAN PLATELET VOLUME 8.4 fl (7.4-10.4); MONOCYTES % 9.2 % (2.0-8.0); NEUTROPHILS % 62.9 % (40.0-76.0); PLATELET 236 x1000/uL (130-400); RED BLOOD CELL COUNT 3.57 mill/uL (4.2-5.4); RED CELL DISTRIBUTION WIDTH 13.9 % (11.6-14.6)
[2018-09-20 14:50] LABS: CHLORIDE 102 mEq/L (98-107); PARTIAL THROMBOPLASTIN TIME 22.5 sec (23.4-31.0); PROTHROMBIN TIME 10.5 sec (9.6-11.0)
[2018-09-20] MEDS ORDERED: MORPHINE SULFATE 4 MG/ML CPJ (NOT FOR IM USE) IV ONE (17:15)
[2018-09-20] MEDS ORDERED: HYDROMORPHONE HCL/PF 2MG/ML CPJ IV ONE (18:00)
[2018-09-20] MEDS ORDERED: ONDANSETRON HCL 4MG/2ML INJ IV PRN (19:30)
[2018-09-20] MEDS: MORPHINE SULFATE 4 MG/ML CPJ (NOT FOR IM USE) IV PRN (21:54)
[2018-09-20 22:22] VITALS: BP 139/80
[2018-09-20 23:00] VITALS: BP 139/80
[2018-09-21] VITALS: BP 123/77
[2018-09-21] MEDS: SODIUM CHLORIDE 0.9% 1,000 ML IV SCH ×2 (00:14→11:25)
[2018-09-21] MEDS: IPRATROPIUM/ALBUTEROL 0.5-3(2.5)MG/3ML NEB HHN SCH ×6 (00:41→20:00)
[2018-09-21] MEDS: CHLORHEXIDINE GLUCONATE 4% EXTERNAL USE TOP SCH ×2 (01:30→11:25)
[2018-09-21] MEDS: MORPHINE SULFATE 4 MG/ML CPJ (NOT FOR IM USE) IV PRN ×5 (02:00→18:36)
[2018-09-21 04:00] VITALS: BP 132/79
[2018-09-21 06:03] LABS: BASOPHILS % 0.1 % (0.0-2.0); HEMATOCRIT. 32.6 % (36.0-48.0); LYMPHOCYTES % 13.4 % (20.0-50.0); MEAN CORPUSCULAR HEMOGLOBIN 33.9 pg (28.0-32.0); MEAN CORPUSCULAR VOLUME 100.4 fL (81.0-99.0); MEAN PLATELET VOLUME 8.5 fl (7.4-10.4); MONOCYTES % 11.1 % (2.0-8.0); NEUTROPHILS % 75.4 % (40.0-76.0); PLATELET 182 x1000/uL (130-400); RED BLOOD CELL COUNT 3.24 mill/uL (4.2-5.4); RED CELL DISTRIBUTION WIDTH 13.5 % (11.6-14.6)
[2018-09-21 06:56] LABS: CHLORIDE 100 mEq/L (98-107)
[2018-09-21 08:00] VITALS: BP 135/77
[2018-09-21 12:00] VITALS: BP 126/69
[2018-09-21] MEDS ORDERED: BUPIVACAINE HCL/PF 0.25% (2.5MG/ML) 10ML ONE (15:07)
[2018-09-21] MEDS ORDERED: ALBUTEROL 90MCG/PUFF 17GM INHALER INH ONE (15:13)
[2018-09-21] MEDS ORDERED: DEXAMETHASONE 4MG/ML 1ML VIAL ONE (15:14)
[2018-09-21 16:00] VITALS: BP 119/72
[2018-09-21] MEDS ORDERED: SKIN ADHESIVE 0.7 GM EA TOP ONE (17:00)
[2018-09-21] MEDS ORDERED: BACITRACIN 50,000 UNITS/VIAL ONE ×2 (17:00→19:27)
[2018-09-21] MEDS ORDERED: BUPIVACAINE/EPINEPH/PF 0.25%/0.0005 10ML ONE ×2 (17:00→19:27)
[2018-09-21 20:00] VITALS: BP 129/80
[2018-09-21] MEDS ORDERED: ETOMIDATE 2MG/ML 10ML VIAL IV ONE (21:39)
[2018-09-21] MEDS ORDERED: FENTANYL CITRATE/PF 50MCG/ML 2ML VIAL ONE (22:16)
[2018-09-21] MEDS ORDERED: KETAMINE HCL 50 MG/ML 10ML ONE (22:18)
[2018-09-21] MEDS ORDERED: ONDANSETRON HCL 4MG/2ML INJ IV PRN (23:30)
[2018-09-21] MEDS ORDERED: HYDROMORPHONE HCL/PF 2MG/ML CPJ IV PRN ×2 (23:30)
[2018-09-21] MEDS ORDERED: MIDAZOLAM HCL 2 MG/2 ML VIAL IV NR (23:45)
[2018-09-21] MEDS ORDERED: PROPOFOL 10MG/ML 100ML 100 ML IV PRN (23:45)
[2018-09-22] MEDS ORDERED: ACETAMINOPHEN 500MG TABLET PO SCH
[2018-09-22 04:00] VITALS: BP 110/69
[2018-09-22] MEDS: IPRATROPIUM/ALBUTEROL 0.5-3(2.5)MG/3ML NEB HHN SCH ×5 (04:39→20:20)
[2018-09-22] MEDS: SODIUM CHLORIDE 0.9% 1,000 ML IV SCH ×2 (05:23→12:03)
[2018-09-22] MEDS: KETOROLAC 30MG/ML VIAL IV SCH ×3 (05:33→17:56)
[2018-09-22 08:00] VITALS: BP 132/78
[2018-09-22 12:00] VITALS: BP 113/71
[2018-09-22 17:00] VITALS: BP 109/68
[2018-09-22 20:00] VITALS: BP 107/60
[2018-09-23] VITALS (7 sets, daily range): BP systolic 108–125; BP diastolic 66–87
[2018-09-23] MEDS: KETOROLAC 30MG/ML VIAL IV SCH ×2 (00:02→05:47)
[2018-09-23] MEDS: IPRATROPIUM/ALBUTEROL 0.5-3(2.5)MG/3ML NEB HHN SCH ×6 (04:13→20:25)
[2018-09-23] MEDS: MORPHINE SULFATE 4 MG/ML CPJ (NOT FOR IM USE) IV PRN ×3 (11:33→22:58)
[2018-09-23] MEDS: OMEPRAZOLE 20MG CAPSULE EXTENDED RELEASE PO SCH (13:13)
[2018-09-23] MEDS: ENOXAPARIN 40MG/0.4ML SYR SUBCUT SCH (13:15)
[2018-09-23] MEDS: ACETAMINOPHEN 325MG TABLET PO PRN (22:59)
[2018-09-24] VITALS: BP 123/68
[2018-09-24] MEDS: IPRATROPIUM/ALBUTEROL 0.5-3(2.5)MG/3ML NEB HHN SCH ×7 (00:31→22:46)
[2018-09-24 04:00] VITALS: BP 111/71
[2018-09-24] MEDS: OMEPRAZOLE 20MG CAPSULE EXTENDED RELEASE PO SCH (06:05)
[2018-09-24] MEDS: MORPHINE SULFATE 4 MG/ML CPJ (NOT FOR IM USE) IV PRN ×3 (06:06→23:45)
[2018-09-24 07:55] VITALS: BP 120/81
[2018-09-24 12:00] VITALS: BP 100/63
[2018-09-24] MEDS: ENOXAPARIN 40MG/0.4ML SYR SUBCUT SCH (13:33)
[2018-09-24 16:09] VITALS: BP 126/90
[2018-09-24 20:00] VITALS: BP 117/72
[2018-09-25] VITALS: BP 105/54
[2018-09-25] MEDS: IPRATROPIUM/ALBUTEROL 0.5-3(2.5)MG/3ML NEB HHN SCH ×5 (02:11→20:02)
[2018-09-25 04:00] VITALS: BP 122/68
[2018-09-25] MEDS: OMEPRAZOLE 20MG CAPSULE EXTENDED RELEASE PO SCH (06:35)
[2018-09-25] MEDS: MORPHINE SULFATE 4 MG/ML CPJ (NOT FOR IM USE) IV PRN ×3 (07:21→20:02)
[2018-09-25 08:00] VITALS: BP 119/68
[2018-09-25] MEDS: ACETAMINOPHEN 325MG TABLET PO PRN (09:14)
[2018-09-25 12:00] VITALS: BP 110/70
[2018-09-25] MEDS: ENOXAPARIN 40MG/0.4ML SYR SUBCUT SCH (12:58)
[2018-09-25 19:31] VITALS: BP 96/57
[2018-09-25 20:00] VITALS: BP 102/59
[2018-09-26] VITALS: BP 103/68
[2018-09-26] MEDS: IPRATROPIUM/ALBUTEROL 0.5-3(2.5)MG/3ML NEB HHN SCH ×7 (00:55→23:57)
[2018-09-26 04:00] VITALS: BP 134/74
[2018-09-26] MEDS: MORPHINE SULFATE 4 MG/ML CPJ (NOT FOR IM USE) IV PRN (04:45)
[2018-09-26 08:00] VITALS: BP 107/69
[2018-09-26] MEDS: FAMOTIDINE 20MG TABLET PO SCH (09:11)
[2018-09-26 12:00] VITALS: BP 138/69
[2018-09-26] MEDS: METHADONE HCL 10MG TABLET PO SCH (13:03)
[2018-09-26] MEDS: ENOXAPARIN 40MG/0.4ML SYR SUBCUT SCH (13:04)
[2018-09-26 16:00] VITALS: BP 101/54
[2018-09-26 20:00] VITALS: BP 103/64
[2018-09-27] VITALS: BP 107/56
[2018-09-27] MEDS: HYDROCODONE/ACETAMINOPHEN 5/325MG TABLET PO PRN ×2 (00:10→17:02)
[2018-09-27 04:00] VITALS: BP 99/42
[2018-09-27] MEDS: IPRATROPIUM/ALBUTEROL 0.5-3(2.5)MG/3ML NEB HHN SCH ×5 (04:24→20:23)
[2018-09-27 08:00] VITALS: BP 110/56
[2018-09-27] MEDS: FAMOTIDINE 20MG TABLET PO SCH (09:18)
[2018-09-27] MEDS: METHADONE HCL 10MG TABLET PO SCH (09:20)
[2018-09-27 12:00] VITALS: BP 110/58
[2018-09-27] MEDS: ENOXAPARIN 40MG/0.4ML SYR SUBCUT SCH (13:11)
[2018-09-27 16:00] VITALS: BP 115/71
[2018-09-27 20:00] VITALS: BP 107/68
[2018-09-28] VITALS: BP 94/54
[2018-09-28] MEDS: IPRATROPIUM/ALBUTEROL 0.5-3(2.5)MG/3ML NEB HHN SCH ×6 (00:02→20:15)
[2018-09-28 04:00] VITALS: BP 109/72
[2018-09-28] MEDS: METHADONE HCL 10MG TABLET PO SCH (09:12)
[2018-09-28] MEDS: FAMOTIDINE 20MG TABLET PO SCH (09:12)
[2018-09-28 10:31] VITALS: BP 106/63
[2018-09-28 12:00] VITALS: BP 95/60
[2018-09-28] MEDS: HYDROCODONE/ACETAMINOPHEN 5/325MG TABLET PO PRN ×2 (13:46→21:25)
[2018-09-28] MEDS: ENOXAPARIN 40MG/0.4ML SYR SUBCUT SCH (14:19)
[2018-09-28 19:59] VITALS: BP 101/55
[2018-09-28 21:25] VITALS: BP 101/55
== END 2018-09-28 21:50 | DRG 308 ==
LOC: ER 13:18 → 5WST 16:06 → ENRESERV 20:41
PROVIDERS: ADMIT Internal Medicine; ATTEND Internal Medicine
PROC: 0QH606Z Insertion of Intramedullary Internal Fixation Device into Right Upper Femur, Open Approach (ICD-10-PCS; principal; 2018-09-21)
DX: S72.141A Displaced intertrochanteric fracture of right femur, initial encounter for closed fracture (principal); J96.10 Chronic respiratory failure, unspecified whether with hypoxia or hypercapnia; Z99.81 Dependence on supplemental oxygen; I69.354 Hemiplegia and hemiparesis following cerebral infarction affecting left non-dominant side; J44.9 Chronic obstructive pulmonary disease, unspecified; I10 Essential (primary) hypertension; F17.210 Nicotine dependence, cigarettes, uncomplicated; M85.80 Other specified disorders of bone density and structure, unspecified site; W01.0XXA Fall on same level from slipping, tripping and stumbling without subsequent striking against object, initial encounter; Y92.009 Unspecified place in unspecified non-institutional (private) residence as the place of occurrence of the external cause; Y93.89 Activity, other specified; Y99.8 Other external cause status; Z88.1 Allergy status to other antibiotic agents; Z88.0 Allergy status to penicillin; Z79.899 Other long term (current) drug therapy
CPT/HCPCS: 36415; 71045; 73502; 73503; 73552; 76000; 80048; 86850; 86900; 93005; 93970; 94640; 96361; 96374; 96375; 96376; 97116; 97162; 97166; 97530; 97535; 99285; C1713; C1769; J0171; J1100; J1170; J1650; J1885; J2250; J2270; J2405; J3010; J3490; J7030; J7620; A4315

== ENCOUNTER 2018-12-18 11:42 | Emergency (ER) | payer MEDICAID ==
[~2018-12-18] VITALS: Ht 152.4 cm; Wt 50.0 kg
[2018-12-18] MEDS ORDERED: OXYCODONE HCL/ACETAMINOPHEN 5/325MG TABLET PO ONE (12:15)
[2018-12-18 14:03] VITALS: BP 88/47
== END 2018-12-18 14:09 | disposition home or self-care (01) ==
LOC: ER 12:02
DX: T20.00XA Burn of unspecified degree of head, face, and neck, unspecified site, initial encounter (principal); J44.9 Chronic obstructive pulmonary disease, unspecified; I10 Essential (primary) hypertension; F17.210 Nicotine dependence, cigarettes, uncomplicated; Z88.0 Allergy status to penicillin; Z88.1 Allergy status to other antibiotic agents; Z79.899 Other long term (current) drug therapy; X08.8XXA Exposure to other specified smoke, fire and flames, initial encounter; Y93.89 Activity, other specified; Y92.89 Other specified places as the place of occurrence of the external cause; Y99.8 Other external cause status
CPT/HCPCS: 99283; 99406

== ENCOUNTER 2019-03-25 20:22 | Inpatient (IN) | payer MEDICAID ==
[~2019-03-25] VITALS: Ht 160 cm; Wt 44.0 kg
[2019-03-25] MEDS ORDERED: IPRATROPIUM/ALBUTEROL 0.5-3(2.5)MG/3ML NEB HHN ONE (21:00)
[2019-03-25 21:21] LABS: BASOPHILS % 0.2 % (0.0-2.0); CHLORIDE 102 mEq/L (98-107); EOSINOPHILS % 0.8 % (0.0-5.0); HEMATOCRIT. 30.7 % (36.0-48.0); HEMOGLOBIN. 10.4 g/dL (12.0-16.0); LYMPHOCYTES % 44.4 % (20.0-50.0); MEAN CORPUSCULAR HEMOGLOBIN 33.1 pg (28.0-32.0); MEAN CORPUSCULAR VOLUME 98.1 fL (81.0-99.0); MEAN PLATELET VOLUME 7.1 fl (7.4-10.4); MONOCYTES % 6.7 % (2.0-8.0); NEUTROPHILS % 47.9 % (40.0-76.0); PLATELET 254 x1000/uL (130-400); RED BLOOD CELL COUNT 3.13 mill/uL (4.2-5.4); RED CELL DISTRIBUTION WIDTH 14.3 % (11.6-14.6)
[2019-03-25] MEDS ORDERED: ONDANSETRON HCL 4MG/2ML INJ IV ONE (23:45)
[2019-03-25] MEDS ORDERED: MORPHINE SULFATE 4 MG/ML CPJ (NOT FOR IM USE) IV ONE (23:45)
[2019-03-26] MEDS ORDERED: KCL 20MEQ/100ML PREMIX 100 ML IV NR (00:30)
[2019-03-26] MEDS ORDERED: POTASSIUM CHLORIDE 20MEQ TABLET SR PO ONE (01:15)
[2019-03-26] MEDS ORDERED: IOHEXOL-300 100 ML BOTTLE ONE (02:31)
[2019-03-26 05:02] VITALS: BP 137/74
[2019-03-26 06:09] VITALS: BP 137/74
[2019-03-26] MEDS ORDERED: ACETAMINOPHEN 650MG/20.3ML UDC PO PRN (06:45)
[2019-03-26] MEDS ORDERED: CLONIDINE 0.1MG TABLET PO PRN (06:45)
[2019-03-26 08:00] VITALS: BP 112/79
[2019-03-26] MEDS: MORPHINE SULFATE 2 MG/ML CPJ (NOT FOR IM USE) IV PRN ×2 (08:08→18:43)
[2019-03-26] MEDS: LOSARTAN POTASSIUM 50 MG TABLET PO SCH (08:09)
[2019-03-26] MEDS: PANTOPRAZOLE SODIUM 40 MG/VIAL IV SCH (08:09)
[2019-03-26] MEDS: AMLODIPINE 5MG TABLET PO SCH ×2 (08:09→21:28)
[2019-03-26] MEDS ORDERED: ENOXAPARIN 40MG/0.4ML SYR SUBCUT SCH (09:00)
[2019-03-26] MEDS ORDERED: INFLUENZA VIRUS VACCINE(AFLURIA) 0.5ML SYR IM ONE (10:00)
[2019-03-26] MEDS: METHADONE HCL 10MG TABLET PO SCH (10:28)
[2019-03-26 10:59] LABS: CHLORIDE 99 mEq/L (98-107)
[2019-03-26 12:00] VITALS: BP 121/78
[2019-03-26] MEDS: METRONIDAZOLE 500MG TABLET PO SCH ×2 (13:09→21:28)
[2019-03-26] MEDS: LEVOFLOXACIN 500MG TABLET PO SCH (13:09)
[2019-03-26] MEDS ORDERED: IPRATROPIUM/ALBUTEROL 0.5-3(2.5)MG/3ML NEB HHN PRN (13:15)
[2019-03-26 16:00] VITALS: BP 129/72
[2019-03-26] MEDS: FOLIC ACID 1 MG, THIAMINE HCL 100 MG, MVI, ADULT NO.1 10 ML in SODIUM CHLORIDE 0.45% 1,... IV SCH ×4 (16:54)
[2019-03-26] MEDS: SODIUM CHLORIDE 0.45% 1,000 ML IV SCH ×2 (16:55→21:29)
[2019-03-26 20:00] VITALS: BP 120/82
[2019-03-26] MEDS: BUDESONIDE 0.5MG/2ML NEB HHN SCH (21:00)
[2019-03-26] MEDS: IPRATROPIUM/ALBUTEROL 0.5-3(2.5)MG/3ML NEB HHN SCH (21:00)
[2019-03-26] MEDS ORDERED: ZOLPIDEM TARTRATE 5MG TABLET PO PRN (21:00)
[2019-03-26] MEDS: CHLORDIAZEPOXIDE 5 MG CAPSULE PO SCH (21:28)
[2019-03-26] MEDS: PROPRANOLOL HCL 10MG TABLET PO SCH (21:29)
[2019-03-27] VITALS: BP 120/72
[2019-03-27] MEDS: MORPHINE SULFATE 2 MG/ML CPJ (NOT FOR IM USE) IV PRN (00:45)
[2019-03-27] MEDS: IPRATROPIUM/ALBUTEROL 0.5-3(2.5)MG/3ML NEB HHN SCH ×3 (01:03→14:30)
[2019-03-27 04:00] VITALS: BP 118/77
[2019-03-27] MEDS: CHLORDIAZEPOXIDE 5 MG CAPSULE PO SCH ×2 (05:19→13:29)
[2019-03-27] MEDS: METRONIDAZOLE 500MG TABLET PO SCH ×2 (05:19→13:29)
[2019-03-27 07:01] LABS: BASOPHILS % 0.1 % (0.0-2.0); EOSINOPHILS % 0.4 % (0.0-5.0); HEMATOCRIT. 29.1 % (36.0-48.0); HEMOGLOBIN. 9.7 g/dL (12.0-16.0); LYMPHOCYTES % 15.5 % (20.0-50.0); MEAN CORPUSCULAR HEMOGLOBIN 33.1 pg (28.0-32.0); MEAN CORPUSCULAR VOLUME 99.2 fL (81.0-99.0); MEAN PLATELET VOLUME 7.8 fl (7.4-10.4); MONOCYTES % 6.6 % (2.0-8.0); NEUTROPHILS % 77.4 % (40.0-76.0); PLATELET 178 x1000/uL (130-400); RED BLOOD CELL COUNT 2.93 mill/uL (4.2-5.4); RED CELL DISTRIBUTION WIDTH 14.4 % (11.6-14.6)
[2019-03-27 07:53] VITALS: BP 142/70
[2019-03-27] MEDS: PANTOPRAZOLE SODIUM 40 MG/VIAL IV SCH (08:27)
[2019-03-27] MEDS: AMLODIPINE 5MG TABLET PO SCH (08:28)
[2019-03-27] MEDS: LOSARTAN POTASSIUM 50 MG TABLET PO SCH (08:28)
[2019-03-27] MEDS: METHADONE HCL 10MG TABLET PO SCH (08:28)
[2019-03-27] MEDS: FOLIC ACID 1 MG, THIAMINE HCL 100 MG, MVI, ADULT NO.1 10 ML in SODIUM CHLORIDE 0.45% 1,... IV SCH ×4 (08:29)
[2019-03-27] MEDS: PROPRANOLOL HCL 10MG TABLET PO SCH (08:29)
[2019-03-27] MEDS: FLUTICASONE PROPIONATE 50MCG/SPRAY BOTTLE BOTHNSTRLS SCH ×2 (08:29→13:30)
[2019-03-27] MEDS ORDERED: ENOXAPARIN 30MG/0.3ML SYR SUBCUT SCH (09:00)
[2019-03-27] MEDS: BUDESONIDE 0.5MG/2ML NEB HHN SCH (10:37)
[2019-03-27 12:00] VITALS: BP 100/54
[2019-03-27] MEDS: LEVOFLOXACIN 500MG TABLET PO SCH (13:29)
[2019-03-27 15:01] VITALS: BP 100/54
== END 2019-03-27 16:00 | disposition home or self-care (01) | DRG 282 ==
LOC: ER 20:22 → ENRESERV 03-26 01:19 → CANRESERV 03-26 01:19 → EDBEDREQTM 03-26 01:52 → EDBEDREQSVC 03-26 01:52 → EDBEDREQ 03-26 01:52 → ENRESERV 03-26 03:34 → 8WST 03-26 04:21
PROVIDERS: ADMIT Internal Medicine; ATTEND Internal Medicine
DX: K85.20 Alcohol induced acute pancreatitis without necrosis or infection (principal); J96.01 Acute respiratory failure with hypoxia; J44.1 Chronic obstructive pulmonary disease with (acute) exacerbation; F11.20 Opioid dependence, uncomplicated; I48.91 Unspecified atrial fibrillation; K83.8 Other specified diseases of biliary tract; E86.0 Dehydration; B19.20 Unspecified viral hepatitis C without hepatic coma; D64.9 Anemia, unspecified; E87.6 Hypokalemia; K29.20 Alcoholic gastritis without bleeding; F10.20 Alcohol dependence, uncomplicated; F17.210 Nicotine dependence, cigarettes, uncomplicated; I10 Essential (primary) hypertension; J00 Acute nasopharyngitis [common cold]; M48.061 Spinal stenosis, lumbar region without neurogenic claudication; Z96.642 Presence of left artificial hip joint; Z99.81 Dependence on supplemental oxygen; Z79.899 Other long term (current) drug therapy; Z86.73 Personal history of transient ischemic attack (TIA), and cerebral infarction without residual deficits; Z88.1 Allergy status to other antibiotic agents; Z88.0 Allergy status to penicillin; Z88.8 Allergy status to other drugs, medicaments and biological substances; Z71.41 Alcohol abuse counseling and surveillance of alcoholic
CPT/HCPCS: 36415; 71045; 74177; 76700; 83735; 83880; 84484; 93005; 94640; 99285; C9113; J1650; J2270; J2405; J3411; J3480; J3490; J7620; J7626; Q9967

== ENCOUNTER 2019-06-08 10:51 | Inpatient (IN) | payer MEDICAID ==
[~2019-06-08] VITALS: Ht 160 cm; Wt 49.9 kg
[2019-06-08] MEDS ORDERED: SODIUM CHLORIDE 0.9% 1,000 ML IV ONE (11:33)
[2019-06-08 11:58] LABS: HEMOGLOBIN. 10.3 g/dL (12.0-16.0); MEAN CORPUSCULAR VOLUME 99.1 fL (81.0-99.0); MEAN PLATELET VOLUME 8.2 fl (7.4-10.4); PLATELET 267 x1000/uL (130-400); RED BLOOD CELL COUNT 3.13 mill/uL (4.2-5.4); RED CELL DISTRIBUTION WIDTH 13.9 % (11.6-14.6)
[2019-06-08 12:04] LABS: CHLORIDE 99 mEq/L (98-107)
[2019-06-08] MEDS ORDERED: ALBUTEROL (0.083%) 2.5MG/3ML NEB HHN STA (12:19)
[2019-06-08] MEDS ORDERED: METHYLPREDNISOLONE SOD SUCC 125 MG/2 ML VIAL IV STA (12:19)
[2019-06-08] MEDS ORDERED: IPRATROPIUM BROMIDE (0.02%) 0.5MG/2.5ML NEB HHN STA (12:19)
[2019-06-08 12:28] LABS: PLATELET ESTIMATE NORMAL
[2019-06-08 20:40] VITALS: BP 110/69
[2019-06-08 21:42] VITALS: BP 130/77
[2019-06-08 21:45] VITALS: BP 110/69
[2019-06-08] MEDS ORDERED: ONDANSETRON HCL 4MG/2ML INJ IV PRN (22:45)
[2019-06-08] MEDS: METHYLPREDNISOLONE SOD SUCC 40 MG/ML VIAL IV SCH (23:35)
[2019-06-08] MEDS: CEFTRIAXONE 1 G PREMIX 50 ML IV SCH (23:57)
[2019-06-09] VITALS: BP 102/65
[2019-06-09] MEDS: AZITHROMYCIN 500 MG in DEXT 5% WATER 250 ML IV SCH (00:46)
[2019-06-09] MEDS: IPRATROPIUM/ALBUTEROL 0.5-3(2.5)MG/3ML NEB HHN SCH ×6 (01:28→20:41)
[2019-06-09 04:00] VITALS: BP 106/68
[2019-06-09 06:08] LABS: HEMOGLOBIN. 10.1 g/dL (12.0-16.0); MEAN CORPUSCULAR VOLUME 97.7 fL (81.0-99.0); PLATELET 249 x1000/uL (130-400); RED BLOOD CELL COUNT 3.07 mill/uL (4.2-5.4); RED CELL DISTRIBUTION WIDTH 13.5 % (11.6-14.6)
[2019-06-09 06:24] LABS: CHLORIDE 98 mEq/L (98-107)
[2019-06-09] MEDS: METHYLPREDNISOLONE SOD SUCC 40 MG/ML VIAL IV SCH ×3 (06:35→23:31)
[2019-06-09 08:00] VITALS: BP 93/65
[2019-06-09] MEDS: AMLODIPINE 5MG TABLET PO SCH ×2 (09:00→21:00)
[2019-06-09] MEDS: LOSARTAN POTASSIUM 50 MG TABLET PO SCH ×2 (09:00→21:00)
[2019-06-09] MEDS: THIAMINE HCL 100MG TABLET GT SCH (09:54)
[2019-06-09] MEDS: FOLIC ACID 1MG TABLET GT SCH (09:54)
[2019-06-09] MEDS: ENOXAPARIN 40MG/0.4ML SYR SUBCUT SCH (09:55)
[2019-06-09] MEDS ORDERED: METHADONE HCL 10MG TABLET PO SCH (10:00)
[2019-06-09 12:00] VITALS: BP 100/62
[2019-06-09 14:05] LABS: PLATELET ESTIMATE NORMAL
[2019-06-09] MEDS: METHADONE HCL 10MG TABLET PO SCH (14:51)
[2019-06-09 16:00] VITALS: BP 101/66
[2019-06-09 20:00] VITALS: BP 102/64
[2019-06-09] MEDS: CEFTRIAXONE 1 G PREMIX 50 ML IV SCH (23:32)
[2019-06-10] VITALS: BP 105/60
[2019-06-10] MEDS: AZITHROMYCIN 500 MG in DEXT 5% WATER 250 ML IV SCH (00:36)
[2019-06-10] MEDS: IPRATROPIUM/ALBUTEROL 0.5-3(2.5)MG/3ML NEB HHN SCH ×6 (00:39→20:59)
[2019-06-10 04:00] VITALS: BP 110/65
[2019-06-10] MEDS: METHYLPREDNISOLONE SOD SUCC 40 MG/ML VIAL IV SCH ×3 (06:07→23:48)
[2019-06-10 08:00] VITALS: BP 109/62
[2019-06-10] MEDS: AMLODIPINE 5MG TABLET PO SCH ×2 (09:00→21:00)
[2019-06-10] MEDS: LOSARTAN POTASSIUM 50 MG TABLET PO SCH ×2 (09:00→21:00)
[2019-06-10] MEDS: ENOXAPARIN 40MG/0.4ML SYR SUBCUT SCH (09:28)
[2019-06-10] MEDS: THIAMINE HCL 100MG TABLET GT SCH (09:28)
[2019-06-10] MEDS: FOLIC ACID 1MG TABLET GT SCH (09:28)
[2019-06-10] MEDS: METHADONE HCL 10MG TABLET PO SCH (09:30)
[2019-06-10 12:00] VITALS: BP 102/65
[2019-06-10 16:00] VITALS: BP 108/73
[2019-06-10 20:00] VITALS: BP 102/71
[2019-06-10] MEDS: CEFTRIAXONE 1 G PREMIX 50 ML IV SCH (23:49)
[2019-06-11] VITALS: BP 117/64
[2019-06-11] MEDS: AZITHROMYCIN 500 MG in DEXT 5% WATER 250 ML IV SCH (00:03)
[2019-06-11] MEDS: IPRATROPIUM/ALBUTEROL 0.5-3(2.5)MG/3ML NEB HHN SCH ×6 (00:37→19:52)
[2019-06-11 04:00] VITALS: BP 120/60
[2019-06-11] MEDS: METHYLPREDNISOLONE SOD SUCC 40 MG/ML VIAL IV SCH ×3 (06:02→23:28)
[2019-06-11] MEDS: FOLIC ACID 1MG TABLET GT SCH (09:06)
[2019-06-11] MEDS: THIAMINE HCL 100MG TABLET GT SCH (09:06)
[2019-06-11] MEDS: AMLODIPINE 5MG TABLET PO SCH ×2 (09:07→21:00)
[2019-06-11] MEDS: LOSARTAN POTASSIUM 50 MG TABLET PO SCH ×2 (09:07→20:26)
[2019-06-11] MEDS: HYDROCODONE/ACETAMINOPHEN 5/325MG TABLET PO PRN ×4 (09:11→20:27)
[2019-06-11] MEDS: ENOXAPARIN 40MG/0.4ML SYR SUBCUT SCH (09:19)
[2019-06-11] MEDS: METHADONE HCL 10MG TABLET PO SCH (09:24)
[2019-06-11 12:00] VITALS: BP 110/67
[2019-06-11 16:00] VITALS: BP 115/67
[2019-06-11 20:00] VITALS: BP 113/71
[2019-06-11] MEDS: CEFTRIAXONE 1 G PREMIX 50 ML IV SCH (23:28)
[2019-06-12] VITALS: BP 108/68
[2019-06-12] MEDS: AZITHROMYCIN 500 MG in DEXT 5% WATER 250 ML IV SCH (00:20)
[2019-06-12] MEDS: IPRATROPIUM/ALBUTEROL 0.5-3(2.5)MG/3ML NEB HHN SCH ×6 (00:30→16:00)
[2019-06-12 04:00] VITALS: BP 122/72
[2019-06-12] MEDS: METHYLPREDNISOLONE SOD SUCC 40 MG/ML VIAL IV SCH ×2 (06:09→16:22)
[2019-06-12 08:00] VITALS: BP 124/78
[2019-06-12] MEDS: AMLODIPINE 5MG TABLET PO SCH (09:00)
[2019-06-12] MEDS: LOSARTAN POTASSIUM 50 MG TABLET PO SCH (09:00)
[2019-06-12] MEDS: FOLIC ACID 1MG TABLET GT SCH (10:18)
[2019-06-12] MEDS: METHADONE HCL 10MG TABLET PO SCH (10:18)
[2019-06-12] MEDS: THIAMINE HCL 100MG TABLET GT SCH (10:19)
[2019-06-12] MEDS: ENOXAPARIN 40MG/0.4ML SYR SUBCUT SCH (10:19)
[2019-06-12 16:12] VITALS: BP 123/68
[2019-06-12] MEDS: HYDROCODONE/ACETAMINOPHEN 5/325MG TABLET PO PRN (16:19)
[2019-06-12 18:26] VITALS: BP 134/78
[2019-06-12] MEDS ORDERED: AZITHROMYCIN 500 MG TABLET PO SCH (21:00)
== END 2019-06-12 19:03 | disposition home or self-care (01) | DRG 140 ==
LOC: ER 10:51 → 5WST 12:37 → EDBEDREQ 12:49 → ENRESERV 18:53 → 5WST 22:50
PROVIDERS: ADMIT Internal Medicine; ATTEND Internal Medicine
DX: J44.1 Chronic obstructive pulmonary disease with (acute) exacerbation (principal); J96.21 Acute and chronic respiratory failure with hypoxia; I11.0 Hypertensive heart disease with heart failure; I50.32 Chronic diastolic (congestive) heart failure; D64.9 Anemia, unspecified; I10 Essential (primary) hypertension; B19.20 Unspecified viral hepatitis C without hepatic coma; I48.91 Unspecified atrial fibrillation; Z96.649 Presence of unspecified artificial hip joint; M94.0 Chondrocostal junction syndrome [Tietze]; R00.0 Tachycardia, unspecified; F11.90 Opioid use, unspecified, uncomplicated; R07.89 Other chest pain; E44.1 Mild protein-calorie malnutrition; Z87.891 Personal history of nicotine dependence; Z99.81 Dependence on supplemental oxygen; Z86.73 Personal history of transient ischemic attack (TIA), and cerebral infarction without residual deficits; Z88.0 Allergy status to penicillin; Z79.899 Other long term (current) drug therapy; Z68.1 Body mass index [BMI] 19.9 or less, adult
CPT/HCPCS: 36415; 71045; 80048; 80053; 83880; 84484; 85025; 93005; 93306; 94640; 96374; 99285; J0456; J0696; J1650; J2920; J2930; J7030; J7060; J7611; J7620

== ENCOUNTER 2019-08-22 17:36 | Inpatient (IN) | payer MEDICAID ==
[~2019-08-22] VITALS: Ht 152.4 cm; Wt 47.2 kg
[2019-08-22] MEDS ORDERED: ALBUTEROL (0.083%) 2.5MG/3ML NEB HHN STA (21:49)
[2019-08-22] MEDS ORDERED: IPRATROPIUM BROMIDE (0.02%) 0.5MG/2.5ML NEB HHN STA (21:49)
[2019-08-22] MEDS ORDERED: METHYLPREDNISOLONE SOD SUCC 125 MG/2 ML VIAL IV STA (21:49)
[2019-08-22] MEDS ORDERED: SODIUM CHLORIDE 0.9% 1000ML BAG (SEPSIS BOLUS) IV ONE (22:00)
[2019-08-22] MEDS ORDERED: LEVOFLOXACIN 750MG PREMIX 150 ML IV ONE (22:00)
[2019-08-22 23:39] LABS: BASOPHILS % 0.2 % (0.0-2.0); EOSINOPHILS % 0.2 % (0.0-5.0); HEMATOCRIT. 35.7 % (36.0-48.0); LYMPHOCYTES % 15.4 % (20.0-50.0); MEAN CORPUSCULAR HEMOGLOBIN 34.2 pg (28.0-32.0); MEAN CORPUSCULAR VOLUME 101.6 fL (81.0-99.0); MONOCYTES % 6.4 % (2.0-8.0); NEUTROPHILS % 77.8 % (40.0-76.0); PLATELET 262 x1000/uL (130-400); RED BLOOD CELL COUNT 3.51 mill/uL (4.2-5.4); RED CELL DISTRIBUTION WIDTH 13.8 % (11.6-14.6)
[2019-08-22 23:43] LABS: CHLORIDE 102 mEq/L (98-107)
[2019-08-22 23:44] LABS: INR 0.9; PROTHROMBIN TIME 10.1 sec (9.6-11.0)
[2019-08-23] MEDS ORDERED: MORPHINE SULFATE 4 MG/ML CPJ (NOT FOR IM USE) IV STA (00:26)
[2019-08-23] MEDS ORDERED: ONDANSETRON HCL 4MG/2ML INJ IV STA (00:26)
[2019-08-23 02:02] LABS: CLARITY URINE CLEAR (CLEAR); COLOR URINE YELLOW (YELLOW); KETONES URINE NEGATIVE (NEGATIVE); LEUKOCYTE ESTERASE URINE NEGATIVE (NEGATIVE); NITRITE URINE NEGATIVE (NEGATIVE); OCCULT BLOOD URINE NEGATIVE (NEGATIVE); PROTEIN URINE NEGATIVE (NEGATIVE); SPECIFIC GRAVITY URINE 1.009 (1.005-1.030); UROBILINOGEN URINE 0.2 E.U./dL (0.2-1.0)
[2019-08-23] MEDS ORDERED: ACETAMINOPHEN 325MG TABLET PO PRN (09:15)
[2019-08-23] MEDS ORDERED: BENZONATATE 100MG CAPSULE PO PRN (09:15)
[2019-08-23] MEDS ORDERED: ONDANSETRON HCL 4MG/2ML INJ IV PRN (09:15)
[2019-08-23] MEDS ORDERED: IPRATROPIUM/ALBUTEROL 0.5-3(2.5)MG/3ML NEB HHN PRN (09:15)
[2019-08-23] MEDS ORDERED: HYDROCODONE/ACETAMINOPHEN 10/325MG TABLET PO PRN (09:15)
[2019-08-23 10:13] LABS: CREATINE KINASE 299 IU/L (26-192)
[2019-08-23] MEDS ORDERED: METHADONE HCL 10MG TABLET PO NR (12:00)
[2019-08-23] MEDS: METHYLPREDNISOLONE SOD SUCC 40 MG/ML VIAL IV SCH ×2 (12:21→20:42)
[2019-08-23 16:00] VITALS: BP 131/77
[2019-08-23 16:05] VITALS: BP 131/77
[2019-08-23] MEDS: NICOTINE 14MG PATCH TD SCH (17:01)
[2019-08-23] MEDS: MULTIVITAMINS,THER W-MINERALS TABLET PO SCH (17:01)
[2019-08-23] MEDS: THIAMINE HCL 100MG TABLET PO SCH (17:01)
[2019-08-23] MEDS: FOLIC ACID 1MG TABLET PO SCH (17:01)
[2019-08-23] MEDS: CHLORDIAZEPOXIDE 25MG CAPSULE PO SCH (17:33)
[2019-08-23 20:00] VITALS: BP 109/73
[2019-08-23 20:36] LABS: HEMATOCRIT 31.5 % (36.0-48.0); HEMOGLOBIN 10.6 g/dL (12.0-16.0)
[2019-08-24] VITALS: BP 113/79
[2019-08-24] MEDS: IPRATROPIUM/ALBUTEROL 0.5-3(2.5)MG/3ML NEB HHN SCH ×6 (00:30→20:44)
[2019-08-24 04:00] VITALS: BP 105/62
[2019-08-24] MEDS: METHYLPREDNISOLONE SOD SUCC 40 MG/ML VIAL IV SCH ×2 (04:49→11:46)
[2019-08-24 06:32] LABS: HEMOGLOBIN. 11.3 g/dL (12.0-16.0); MEAN CORPUSCULAR HEMOGLOBIN 34.3 pg (28.0-32.0); MEAN CORPUSCULAR VOLUME 100.5 fL (81.0-99.0); MEAN PLATELET VOLUME 8.3 fl (7.4-10.4); PLATELET 201 x1000/uL (130-400); RED BLOOD CELL COUNT 3.28 mill/uL (4.2-5.4); RED CELL DISTRIBUTION WIDTH 13.7 % (11.6-14.6)
[2019-08-24 07:41] LABS: CHLORIDE 97 mEq/L (98-107)
[2019-08-24] MEDS ORDERED: LEVOFLOXACIN 500MG PREMIX 100 ML IV SCH (09:00)
[2019-08-24] MEDS: CHLORDIAZEPOXIDE 25MG CAPSULE PO SCH ×3 (09:09→16:39)
[2019-08-24] MEDS: THIAMINE HCL 100MG TABLET PO SCH (09:09)
[2019-08-24] MEDS: MULTIVITAMINS,THER W-MINERALS TABLET PO SCH (09:09)
[2019-08-24] MEDS: FOLIC ACID 1MG TABLET PO SCH (09:09)
[2019-08-24] MEDS: NICOTINE 14MG PATCH TD SCH (09:10)
[2019-08-24] MEDS: METHADONE HCL 10MG TABLET PO SCH (09:11)
[2019-08-24 10:14] LABS: PLATELET ESTIMATE NORMAL
[2019-08-24] MEDS: LEVETIRACETAM 500MG TABLET PO SCH ×2 (11:46→20:46)
[2019-08-24 12:00] VITALS: BP 106/58
[2019-08-24] MEDS ORDERED: LORAZEPAM 2MG/ML CPJ IV PRN (13:00)
[2019-08-24 16:00] VITALS: BP 96/58
[2019-08-24] MEDS ORDERED: VANCOMYCIN 1 G PREMIX 200 ML IV SCH (16:00)
[2019-08-24 17:27] LABS: *AMPHETAMINES SCREEN URINE NEGATIVE (NEGATIVE); *BARBITURATES SCREEN URINE NEGATIVE (NEGATIVE); *BENZODIAZEPINES SCREEN URINE PRESUMTIVE POSITIVE (NEGATIVE); *COCAINE SCREEN URINE NEGATIVE (NEGATIVE); CANNABINOID URINE SCREEN NEGATIVE (NEGATIVE); PHENCYCLIDINE URINE SCREEN NEGATIVE (NEGATIVE)
[2019-08-24 17:43] LABS: METHADONE URINE SCREEN PRESUMTIVE POSITIVE (NEGATIVE)
[2019-08-24 20:00] VITALS: BP 111/63
[2019-08-25] VITALS: BP 105/72
[2019-08-25] MEDS: IPRATROPIUM/ALBUTEROL 0.5-3(2.5)MG/3ML NEB HHN SCH ×3 (00:18→20:26)
[2019-08-25 04:00] VITALS: BP 101/62
[2019-08-25] MEDS: VANCOMYCIN 750 MG PREMIX 150 ML IV SCH ×2 (05:00→18:12)
[2019-08-25 08:00] VITALS: BP 125/76
[2019-08-25] MEDS: THIAMINE HCL 100MG TABLET PO SCH (09:06)
[2019-08-25] MEDS: FOLIC ACID 1MG TABLET PO SCH (09:06)
[2019-08-25] MEDS: MULTIVITAMINS,THER W-MINERALS TABLET PO SCH (09:06)
[2019-08-25] MEDS: LEVETIRACETAM 500MG TABLET PO SCH ×2 (09:06→20:40)
[2019-08-25] MEDS: CHLORDIAZEPOXIDE 25MG CAPSULE PO SCH ×3 (09:07→17:00)
[2019-08-25] MEDS: METHADONE HCL 10MG TABLET PO SCH (09:07)
[2019-08-25] MEDS: NICOTINE 14MG PATCH TD SCH (09:07)
[2019-08-25] MEDS: LEVOFLOXACIN 250MG TABLET PO SCH (11:49)
[2019-08-25 11:51] VITALS: BP 91/57
[2019-08-25 16:00] VITALS: BP 86/54
[2019-08-25] MEDS ORDERED: SODIUM CHLORIDE 0.9% 500 ML IV ONE (17:30)
[2019-08-25 20:00] VITALS: BP 100/68
[2019-08-26] VITALS: BP 91/56
[2019-08-26] MEDS: IPRATROPIUM/ALBUTEROL 0.5-3(2.5)MG/3ML NEB HHN SCH ×5 (00:18→20:55)
[2019-08-26 04:00] VITALS: BP 93/54
[2019-08-26] MEDS: VANCOMYCIN 750 MG PREMIX 150 ML IV SCH (06:07)
[2019-08-26 08:00] VITALS: BP 113/73
[2019-08-26] MEDS: LEVETIRACETAM 500MG TABLET PO SCH ×2 (08:41→22:27)
[2019-08-26] MEDS: FOLIC ACID 1MG TABLET PO SCH (08:41)
[2019-08-26] MEDS: CHLORDIAZEPOXIDE 25MG CAPSULE PO SCH ×3 (08:41→16:43)
[2019-08-26] MEDS: NICOTINE 14MG PATCH TD SCH (08:42)
[2019-08-26] MEDS: MULTIVITAMINS,THER W-MINERALS TABLET PO SCH (08:42)
[2019-08-26] MEDS: THIAMINE HCL 100MG TABLET PO SCH (08:42)
[2019-08-26] MEDS: METHADONE HCL 10MG TABLET PO SCH (08:56)
[2019-08-26] MEDS: LEVOFLOXACIN 250MG TABLET PO SCH (11:10)
[2019-08-26 12:00] VITALS: BP 100/68
[2019-08-26 17:00] VITALS: BP 98/52
[2019-08-26 20:00] VITALS: BP 94/57
[2019-08-27] VITALS: BP 108/63
[2019-08-27] MEDS: IPRATROPIUM/ALBUTEROL 0.5-3(2.5)MG/3ML NEB HHN SCH ×6 (00:28→22:14)
[2019-08-27] MEDS: VANCOMYCIN 750 MG PREMIX 150 ML IV SCH ×2 (00:40→18:41)
[2019-08-27 04:00] VITALS: BP 113/66
[2019-08-27 08:00] VITALS: BP 107/64
[2019-08-27 08:16] LABS: CHLORIDE 101 mEq/L (98-107)
[2019-08-27] MEDS: FOLIC ACID 1MG TABLET PO SCH (11:59)
[2019-08-27] MEDS: THIAMINE HCL 100MG TABLET PO SCH (11:59)
[2019-08-27] MEDS: METHADONE HCL 10MG TABLET PO SCH (11:59)
[2019-08-27] MEDS: LEVOFLOXACIN 250MG TABLET PO SCH (11:59)
[2019-08-27] MEDS: MULTIVITAMINS,THER W-MINERALS TABLET PO SCH (11:59)
[2019-08-27] MEDS: CHLORDIAZEPOXIDE 25MG CAPSULE PO SCH ×3 (11:59→18:41)
[2019-08-27] MEDS: LEVETIRACETAM 500MG TABLET PO SCH ×2 (11:59→20:51)
[2019-08-27 12:00] VITALS: BP 112/68
[2019-08-27] MEDS: NICOTINE 14MG PATCH TD SCH (12:00)
[2019-08-27 16:00] VITALS: BP 93/52
[2019-08-27 16:59] LABS: OPIATES URINE SCREEN PRESUMTIVE POSITIVE (NEGATIVE)
[2019-08-27 20:00] VITALS: BP 110/66
[2019-08-27] MEDS: GUAIFENESIN 600MG ER TABLET PO SCH (20:51)
[2019-08-28] VITALS (35 sets, daily range): BP systolic 90–127; BP diastolic 43–104
[2019-08-28] MEDS: IPRATROPIUM/ALBUTEROL 0.5-3(2.5)MG/3ML NEB HHN SCH ×6 (02:09→20:57)
[2019-08-28] MEDS: NICOTINE 14MG PATCH TD SCH (09:00)
[2019-08-28] MEDS: THIAMINE HCL 100MG TABLET PO SCH (09:00)
[2019-08-28] MEDS: METHADONE HCL 10MG TABLET PO SCH (09:00)
[2019-08-28] MEDS: MULTIVITAMINS,THER W-MINERALS TABLET PO SCH (09:00)
[2019-08-28] MEDS: GUAIFENESIN 600MG ER TABLET PO SCH ×2 (09:00→20:51)
[2019-08-28] MEDS: CHLORDIAZEPOXIDE 25MG CAPSULE PO SCH ×3 (09:00→17:00)
[2019-08-28] MEDS: LEVETIRACETAM 500MG TABLET PO SCH ×2 (09:00→20:51)
[2019-08-28] MEDS: FOLIC ACID 1MG TABLET PO SCH (09:00)
[2019-08-28] MEDS: LEVOFLOXACIN 250MG TABLET PO SCH (10:11)
[2019-08-28 10:27] LABS: BASOPHILS % 0.1 % (0.0-2.0); EOSINOPHILS % 4.2 % (0.0-5.0); HEMATOCRIT. 32.2 % (36.0-48.0); HEMOGLOBIN. 10.9 g/dL (12.0-16.0); LYMPHOCYTES % 24.6 % (20.0-50.0); MEAN CORPUSCULAR HEMOGLOBIN 34.1 pg (28.0-32.0); MEAN CORPUSCULAR VOLUME 100.5 fL (81.0-99.0); MEAN PLATELET VOLUME 8.5 fl (7.4-10.4); MONOCYTES % 10.5 % (2.0-8.0); NEUTROPHILS % 60.6 % (40.0-76.0); PLATELET 162 x1000/uL (130-400); RED CELL DISTRIBUTION WIDTH 13.3 % (11.6-14.6)
[2019-08-28 10:28] LABS: CHLORIDE 100 mEq/L (98-107)
[2019-08-28] MEDS ORDERED: HYDROMORPHONE HCL/PF 2MG/ML (OR) ONE (12:10)
[2019-08-28] MEDS ORDERED: ROCURONIUM BROMIDE 10MG/ML VIAL 5ML IV ONE (12:10)
[2019-08-28] MEDS ORDERED: FENTANYL CITRATE/PF 50MCG/ML 5ML VIAL ONE (12:10)
[2019-08-28] MEDS ORDERED: PROPOFOL 200MG/20ML VIAL IV ONE (12:11)
[2019-08-28] MEDS ORDERED: MIDAZOLAM HCL 2 MG/2 ML VIAL ONE (12:11)
[2019-08-28] MEDS ORDERED: LIDOCAINE HCL/EPINEPHRINE 1%-EPI 1:100,000 20 ML VIAL ONE (13:12)
[2019-08-28] MEDS ORDERED: THROMBIN (BOVINE) 5000 UNITS/VIAL TOP ONE (13:12)
[2019-08-28] MEDS ORDERED: BACITRACIN 50,000 UNITS/VIAL ONE (13:12)
[2019-08-28] MEDS ORDERED: NITROGLYCERIN 50MG PREMIX 250 ML IV ONE (14:23)
[2019-08-28] MEDS ORDERED: GLYCOPYRROLATE 0.2 MG/ML 2ML VIAL ONE (15:19)
[2019-08-28] MEDS ORDERED: NICARDIPINE 100 MG in SODIUM CHLORIDE 0.9% 60 ML IV PRN (15:45)
[2019-08-28] MEDS ORDERED: NALOXONE INJ IV PRN (16:30)
[2019-08-28] MEDS ORDERED: DIPHENHYDRAMINE INJ IV PRN (16:30)
[2019-08-28] MEDS ORDERED: ONDANSETRON INJ IV PRN (16:30)
[2019-08-28] MEDS: DEXT 5%/LACTATED RINGERS 1,000 ML IV SCH (16:35)
[2019-08-28] MEDS: MORPHINE SULFATE 4 MG/ML CPJ (NOT FOR IM USE) IV PRN (16:35)
[2019-08-28] MEDS: HYDROMORPHONE PCA 10MG/50ML IV PRN (17:34)
[2019-08-28] MEDS: DEXAMETHASONE 4MG/ML 1ML VIAL IV SCH (18:15)
[2019-08-28] MEDS ORDERED: VANCOMYCIN 750 MG PREMIX 150 ML IV SCH (19:00)
[2019-08-29] VITALS (75 sets, daily range): BP systolic 80–175; BP diastolic 54–171
[2019-08-29] MEDS: IPRATROPIUM/ALBUTEROL 0.5-3(2.5)MG/3ML NEB HHN SCH ×6 (00:44→20:52)
[2019-08-29] MEDS: DEXAMETHASONE 4MG/ML 1ML VIAL IV SCH ×4 (01:37→17:32)
[2019-08-29] MEDS: DEXT 5%/LACTATED RINGERS 1,000 ML IV SCH (01:45)
[2019-08-29] MEDS: MORPHINE SULFATE 4 MG/ML CPJ (NOT FOR IM USE) IV PRN (04:32)
[2019-08-29 06:17] LABS: CHLORIDE 102 mEq/L (98-107)
[2019-08-29] MEDS: THIAMINE HCL 100MG TABLET PO SCH (08:53)
[2019-08-29] MEDS: FOLIC ACID 1MG TABLET PO SCH (08:53)
[2019-08-29] MEDS: MULTIVITAMINS,THER W-MINERALS TABLET PO SCH (08:53)
[2019-08-29] MEDS: NICOTINE 14MG PATCH TD SCH (08:53)
[2019-08-29] MEDS: LEVETIRACETAM 500MG TABLET PO SCH ×2 (08:53→20:09)
[2019-08-29] MEDS: GUAIFENESIN 600MG ER TABLET PO SCH ×2 (08:53→20:09)
[2019-08-29] MEDS: METHADONE HCL 10MG TABLET PO SCH (08:54)
[2019-08-29] MEDS: SODIUM CHLORIDE 0.45% 1,000 ML IV SCH ×2 (09:16→20:09)
[2019-08-29 09:45] LABS: HEMATOCRIT. 31.2 % (36.0-48.0); HEMOGLOBIN. 10.7 g/dL (12.0-16.0); MEAN CORPUSCULAR HEMOGLOBIN 34.4 pg (28.0-32.0); MEAN CORPUSCULAR VOLUME 100.1 fL (81.0-99.0); MEAN PLATELET VOLUME 8.1 fl (7.4-10.4); PLATELET 139 x1000/uL (130-400); RED BLOOD CELL COUNT 3.12 mill/uL (4.2-5.4); RED CELL DISTRIBUTION WIDTH 13.2 % (11.6-14.6)
[2019-08-29 10:43] LABS: PLATELET ESTIMATE NORMAL
[2019-08-29] MEDS: LEVOFLOXACIN 250MG TABLET PO SCH (12:45)
[2019-08-29] MEDS ORDERED: VANCOMYCIN HCL 750 MG in DEXT 5% WATER 250 ML IV SCH (18:00)
[2019-08-29] MEDS: OXYCODONE HCL/ACETAMINOPHEN 5/325MG TABLET PO PRN (21:42)
[2019-08-30] VITALS: BP_SYST 122; BP_SYST 125; BP_DIAS 74; BP_DIAS 80
[2019-08-30] MEDS: IPRATROPIUM/ALBUTEROL 0.5-3(2.5)MG/3ML NEB HHN SCH ×6 (01:06→21:05)
[2019-08-30 04:00] VITALS: BP 119/75
[2019-08-30 07:22] LABS: BASOPHILS % 0.1 % (0.0-2.0); EOSINOPHILS % 0.1 % (0.0-5.0); LYMPHOCYTES % 8.1 % (20.0-50.0); MEAN CORPUSCULAR HEMOGLOBIN 34.4 pg (28.0-32.0); MEAN CORPUSCULAR VOLUME 100.1 fL (81.0-99.0); MEAN PLATELET VOLUME 8.6 fl (7.4-10.4); MONOCYTES % 9.5 % (2.0-8.0); NEUTROPHILS % 82.2 % (40.0-76.0); PLATELET 150 x1000/uL (130-400); RED CELL DISTRIBUTION WIDTH 12.9 % (11.6-14.6)
[2019-08-30 07:23] LABS: CHLORIDE 102 mEq/L (98-107)
[2019-08-30 08:00] VITALS: BP 122/78
[2019-08-30] MEDS: FOLIC ACID 1MG TABLET PO SCH (08:35)
[2019-08-30] MEDS: LEVETIRACETAM 500MG TABLET PO SCH ×2 (08:35→20:20)
[2019-08-30] MEDS: MULTIVITAMINS,THER W-MINERALS TABLET PO SCH (08:36)
[2019-08-30] MEDS: GUAIFENESIN 600MG ER TABLET PO SCH ×2 (08:36→20:20)
[2019-08-30] MEDS: THIAMINE HCL 100MG TABLET PO SCH (08:36)
[2019-08-30] MEDS: NICOTINE 14MG PATCH TD SCH (08:37)
[2019-08-30] MEDS: SODIUM CHLORIDE 0.45% 1,000 ML IV SCH (09:38)
[2019-08-30] MEDS: LEVOFLOXACIN 250MG TABLET PO SCH (10:19)
[2019-08-30] MEDS: OXYCODONE HCL/ACETAMINOPHEN 5/325MG TABLET PO PRN ×2 (10:21→20:31)
[2019-08-30] MEDS: METHADONE HCL 10MG TABLET PO SCH (11:24)
[2019-08-30] MEDS: HYDROMORPHONE PCA 10MG/50ML IV PRN (11:46)
[2019-08-30 12:00] VITALS: BP 116/75
[2019-08-30 16:00] VITALS: BP 94/55
[2019-08-30 20:00] VITALS: BP 104/52
[2019-08-30] MEDS: LACTULOSE 20G/30ML UDC PO SCH (20:20)
[2019-08-30] MEDS ORDERED: POLYETHYLENE GLYCOL 3350 (17GM) 1 DOSE PACK PO SCH (21:00)
[2019-08-31] VITALS (7 sets, daily range): BP systolic 91–134; BP diastolic 51–86
[2019-08-31] MEDS: SODIUM CHLORIDE 0.45% 1,000 ML IV SCH (00:02)
[2019-08-31] MEDS: IPRATROPIUM/ALBUTEROL 0.5-3(2.5)MG/3ML NEB HHN SCH ×4 (00:05→12:23)
[2019-08-31] MEDS: OXYCODONE HCL/ACETAMINOPHEN 5/325MG TABLET PO PRN ×2 (04:51→09:40)
[2019-08-31] MEDS: LACTULOSE 20G/30ML UDC PO SCH (08:47)
[2019-08-31] MEDS: NICOTINE 14MG PATCH TD SCH (08:48)
[2019-08-31] MEDS: LEVETIRACETAM 500MG TABLET PO SCH (08:49)
[2019-08-31] MEDS: DOCUSATE SODIUM 100MG CAPSULE PO SCH ×2 (08:49→16:31)
[2019-08-31] MEDS: MULTIVITAMINS,THER W-MINERALS TABLET PO SCH (08:49)
[2019-08-31] MEDS: FOLIC ACID 1MG TABLET PO SCH (08:49)
[2019-08-31] MEDS: METHADONE HCL 10MG TABLET PO SCH (08:49)
[2019-08-31] MEDS: GUAIFENESIN 600MG ER TABLET PO SCH (08:49)
[2019-08-31] MEDS: THIAMINE HCL 100MG TABLET PO SCH (08:49)
[2019-08-31 08:57] LABS: CHLORIDE 105 mEq/L (98-107)
[2019-08-31] MEDS: MORPHINE SULFATE 4 MG/ML CPJ (NOT FOR IM USE) IV PRN (14:34)
[2019-08-31] MEDS ORDERED: BISACODYL 10MG SUPP PR PRN (16:45)
[2019-08-31] MEDS ORDERED: NA PHOS,M-B/NA PHOS,DI-BA ENEMA 118ML PR SCH (16:45)
[2019-08-31] MEDS ORDERED: LACTULOSE 20G/30ML UDC PO SCH (17:00)
[2019-08-31] MEDS ORDERED: NA PHOS,M-B/NA PHOS,DI-BA ENEMA 118ML PR PRN (17:00)
[2019-08-31] MEDS ORDERED: OXYC-515 MT (17:59)
[2019-08-31] MEDS ORDERED: OXYCODONE HCL/ACETAMINOPHEN 5/325MG TABLET PO SCH (18:15)
== END 2019-08-31 19:01 | disposition home health service (06) | DRG 321 ==
LOC: ER 17:36 → 5WST 08-23 00:28 → EDBEDREQ 08-23 00:31 → EDBEDREQDT 08-23 00:31 → EDBEDREQTM 08-23 00:31 → ENRESERV 08-23 14:46 → MICUSO 08-28 15:46 → 6EST 08-29 23:29
PROVIDERS: ADMIT Internal Medicine; ATTEND Internal Medicine
PROC: 0RG2071 Fusion of 2 or more Cervical Vertebral Joints with Autologous Tissue Substitute, Posterior Approach, Posterior Column, Open Approach (ICD-10-PCS; principal; 2019-08-28)
PROC: 01N10ZZ Release Cervical Nerve, Open Approach (ICD-10-PCS; 2019-08-28)
DX: M48.02 Spinal stenosis, cervical region (principal); J96.20 Acute and chronic respiratory failure, unspecified whether with hypoxia or hypercapnia; G82.50 Quadriplegia, unspecified; M47.12 Other spondylosis with myelopathy, cervical region; M62.82 Rhabdomyolysis; F11.20 Opioid dependence, uncomplicated; J44.1 Chronic obstructive pulmonary disease with (acute) exacerbation; Z99.81 Dependence on supplemental oxygen; R74.0 Nonspecific elevation of levels of transaminase and lactic acid dehydrogenase [LDH]; G40.909 Epilepsy, unspecified, not intractable, without status epilepticus; W18.30XA Fall on same level, unspecified, initial encounter; B19.20 Unspecified viral hepatitis C without hepatic coma; F17.210 Nicotine dependence, cigarettes, uncomplicated; I10 Essential (primary) hypertension; Z96.643 Presence of artificial hip joint, bilateral; M47.22 Other spondylosis with radiculopathy, cervical region; R29.6 Repeated falls; D64.9 Anemia, unspecified; S14.109A Unspecified injury at unspecified level of cervical spinal cord, initial encounter; F10.10 Alcohol abuse, uncomplicated; T45.4X6A Underdosing of iron and its compounds, initial encounter; Y93.89 Activity, other specified; Y99.8 Other external cause status; Z86.73 Personal history of transient ischemic attack (TIA), and cerebral infarction without residual deficits; Y92.89 Other specified places as the place of occurrence of the external cause; Z88.0 Allergy status to penicillin; Z79.899 Other long term (current) drug therapy; Z71.41 Alcohol abuse counseling and surveillance of alcoholic; Z71.51 Drug abuse counseling and surveillance of drug abuser; Z71.6 Tobacco abuse counseling
CPT/HCPCS: 36415; 70551; 71045; 72040; 72141; 73502; 73552; 76000; 80048; 80053; 80202; 80305; 80320; 81003; 82270; 82550; 82693; 83605; 83880; 84145; 84484; 85014; 85018; 85025; 88304; 88311; 92610; 93005; 93306; 93970; 94640; 95925; 95926; 95928; 95929; 95940; 97116; 97162; 97164; 97166; 97530; 99291; C1713; J1100; J1170; J1956; J2250; J2270; J2405; J2704; J2920; J2930; J3010; J3370; J3490; J7030; J7060; L0172; G0480

== ENCOUNTER 2019-09-08 10:46 | Emergency (ER) | payer MEDICAID ==
[~2019-09-08] VITALS: Ht 154.9 cm; Wt 48.0 kg
[~2019-09-08 10:46] MED LIST changes: +OXYC-515 MT
[2019-09-08] MEDS ORDERED: HYDROCODONE/ACETAMINOPHEN 5/325MG TABLET PO ONE (11:45)
[2019-09-08] MEDS ORDERED: ONDANSETRON 4MG ODT PO ONE (11:45)
[2019-09-08 14:01] VITALS: BP 102/59
== END 2019-09-08 14:02 | disposition home or self-care (01) ==
LOC: ER 10:52
DX: G89.18 Other acute postprocedural pain (principal); G40.909 Epilepsy, unspecified, not intractable, without status epilepticus; I11.9 Hypertensive heart disease without heart failure; J44.9 Chronic obstructive pulmonary disease, unspecified; Z98.1 Arthrodesis status; Z86.73 Personal history of transient ischemic attack (TIA), and cerebral infarction without residual deficits; Z88.0 Allergy status to penicillin
CPT/HCPCS: 99283; Q0162; Z7610

== ENCOUNTER 2019-12-24 22:44 | Inpatient (IN) | payer MEDICARE, MEDICAID ==
[~2019-12-24] VITALS: Ht 157.5 cm; Wt 45.5 kg
[2019-12-24] MEDS ORDERED: METHYLPREDNISOLONE SOD SUCC 125 MG/2 ML VIAL IV STA (23:25)
[2019-12-24] MEDS ORDERED: ALBUTEROL (0.083%) 2.5MG/3ML NEB HHN STA (23:25)
[2019-12-24] MEDS ORDERED: MAGNESIUM 2 G PREMIX 50 ML IV ONE (23:30)
[2019-12-25 00:21] LABS: BASOPHILS % 0.5 % (0.0-2.0); EOSINOPHILS % 0.7 % (0.0-5.0); HEMATOCRIT. 29.5 % (36.0-48.0); HEMOGLOBIN. 10.2 g/dL (12.0-16.0); LYMPHOCYTES % 14.6 % (20.0-50.0); MEAN CORPUSCULAR HEMOGLOBIN 35.6 pg (28.0-32.0); MEAN PLATELET VOLUME 6.9 fl (7.4-10.4); MONOCYTES % 7.5 % (2.0-8.0); NEUTROPHILS % 76.7 % (40.0-76.0); PLATELET 518 x1000/uL (130-400); RED BLOOD CELL COUNT 2.87 mill/uL (4.2-5.4); RED CELL DISTRIBUTION WIDTH 14.3 % (11.6-14.6)
[2019-12-25 00:29] LABS: CHLORIDE 108 mEq/L (98-107)
[2019-12-25] MEDS ORDERED: ALBUTEROL 6.7GM HFA INHALER ORI ONE (00:30)
[2019-12-25 00:34] LABS: ETHANOL BLOOD 99 mg/dL
[2019-12-25 00:55] LABS: INR 0.9; PARTIAL THROMBOPLASTIN TIME < 21.0 sec (23.4-31.0); PROTHROMBIN TIME 9.9 sec (9.6-11.0)
[2019-12-25 03:07] LABS: *AMPHETAMINES SCREEN URINE NEGATIVE (NEGATIVE); *BARBITURATES SCREEN URINE NEGATIVE (NEGATIVE); *BENZODIAZEPINES SCREEN URINE NEGATIVE (NEGATIVE); *COCAINE SCREEN URINE NEGATIVE (NEGATIVE); METHADONE URINE SCREEN NEGATIVE (NEGATIVE); OPIATES URINE SCREEN PRESUMTIVE POSITIVE (NEGATIVE)
[2019-12-25 03:08] LABS: CANNABINOID URINE SCREEN NEGATIVE (NEGATIVE); PHENCYCLIDINE URINE SCREEN NEGATIVE (NEGATIVE)
[2019-12-25 09:00] VITALS: BP_SYST 144; BP_SYST 150; BP_DIAS 89
[2019-12-25] MEDS ORDERED: ONDANSETRON HCL 4MG/2ML INJ IV PRN (09:45)
[2019-12-25] MEDS ORDERED: ACETAMINOPHEN 325MG TABLET PO PRN (09:45)
[2019-12-25] MEDS: HYDROCODONE/ACETAMINOPHEN 10/325MG TABLET PO PRN ×2 (10:35→18:00)
[2019-12-25] MEDS: ENOXAPARIN 30MG/0.3ML SYR SUBCUT SCH (10:36)
[2019-12-25 12:00] VITALS: BP 135/85
[2019-12-25] MEDS ORDERED: FOLIC ACID 1 MG, THIAMINE HCL 100 MG, MVI, ADULT NO.1 10 ML in DEXTROSE 5% WATER 1,000 ML IV SCH ×4 (12:00)
[2019-12-25 12:04] LABS: CLARITY URINE CLEAR (CLEAR); COLOR URINE YELLOW (YELLOW); KETONES URINE NEGATIVE (NEGATIVE); LEUKOCYTE ESTERASE URINE NEGATIVE (NEGATIVE); NITRITE URINE NEGATIVE (NEGATIVE); OCCULT BLOOD URINE NEGATIVE (NEGATIVE); PH URINE 7.5 (4.5-8.0); PROTEIN URINE TRACE (NEGATIVE); SPECIFIC GRAVITY URINE 1.013 (1.005-1.030); UROBILINOGEN URINE 0.2 E.U./dL (0.2-1.0)
[2019-12-25] MEDS: METHYLPREDNISOLONE SOD SUCC 40 MG/ML VIAL IV SCH ×2 (13:00→21:24)
[2019-12-25] MEDS: CHLORDIAZEPOXIDE 25MG CAPSULE PO SCH ×2 (13:00→21:24)
[2019-12-25] MEDS: ALBUTEROL 6.7GM HFA INHALER ORI SCH ×2 (14:15→17:12)
[2019-12-25 16:00] VITALS: BP 133/84
[2019-12-25 20:00] VITALS: BP 133/85
[2019-12-26] VITALS: BP 147/84
[2019-12-26 04:00] VITALS: BP 138/86
[2019-12-26] MEDS: ALBUTEROL 6.7GM HFA INHALER ORI SCH ×2 (06:00)
[2019-12-26] MEDS: METHYLPREDNISOLONE SOD SUCC 40 MG/ML VIAL IV SCH ×3 (06:19→21:12)
[2019-12-26] MEDS: CHLORDIAZEPOXIDE 25MG CAPSULE PO SCH ×3 (06:19→21:12)
[2019-12-26] MEDS: ENOXAPARIN 30MG/0.3ML SYR SUBCUT SCH (09:28)
[2019-12-26] MEDS: HYDROCODONE/ACETAMINOPHEN 10/325MG TABLET PO PRN (12:36)
[2019-12-26] MEDS ORDERED: FOLIC ACID 1 MG, THIAMINE HCL 100 MG, MVI, ADULT NO.1 10 ML in DEXTROSE 5% WATER 1,000 ML IV SCH ×4 (17:00)
[2019-12-26 17:51] LABS: CHLORIDE 101 mEq/L (98-107)
[2019-12-26] MEDS ORDERED: ALBUTEROL (0.083%) 2.5MG/3ML NEB HHN SCH (18:00)
[2019-12-26 20:12] VITALS: BP 133/82
[2019-12-27 00:13] VITALS: BP 152/96
[2019-12-27 04:00] VITALS: BP 133/86
[2019-12-27] MEDS: METHYLPREDNISOLONE SOD SUCC 40 MG/ML VIAL IV SCH ×3 (05:04→21:33)
[2019-12-27] MEDS: CHLORDIAZEPOXIDE 25MG CAPSULE PO SCH ×3 (05:04→21:33)
[2019-12-27 06:55] LABS: CHLORIDE 100 mEq/L (98-107)
[2019-12-27] MEDS: ENOXAPARIN 30MG/0.3ML SYR SUBCUT SCH (08:01)
[2019-12-27 08:14] VITALS: BP 148/83
[2019-12-27] MEDS ORDERED: DIPHENOXYLATE/ATROPINE 2.5/0.025MG TABLET PO PRN (09:45)
[2019-12-27] MEDS: HYDROCODONE/ACETAMINOPHEN 10/325MG TABLET PO PRN (12:18)
[2019-12-27 12:20] VITALS: BP 132/86
[2019-12-27] MEDS: LORAZEPAM 2MG/ML CPJ IV PRN ×2 (14:26→21:08)
[2019-12-27 16:23] VITALS: BP 138/89
[2019-12-27] MEDS ORDERED: FOLIC ACID 1 MG, THIAMINE HCL 100 MG, MVI, ADULT NO.1 10 ML in DEXTROSE 5% WATER 1,000 ML IV SCH ×4 (17:00)
[2019-12-27 20:00] VITALS: BP 139/83
[2019-12-28] VITALS: BP 139/95
[2019-12-28 04:00] VITALS: BP 135/89
[2019-12-28] MEDS: METHYLPREDNISOLONE SOD SUCC 40 MG/ML VIAL IV SCH (05:23)
[2019-12-28] MEDS: CHLORDIAZEPOXIDE 25MG CAPSULE PO SCH (05:23)
[2019-12-28] MEDS: HYDROCODONE/ACETAMINOPHEN 10/325MG TABLET PO PRN (06:44)
[2019-12-28 08:00] VITALS: BP 144/84
[2019-12-28] MEDS: ENOXAPARIN 30MG/0.3ML SYR SUBCUT SCH (08:44)
[2019-12-28] MEDS: LORAZEPAM 2MG/ML CPJ IV PRN (08:52)
[2019-12-28] MEDS ORDERED: HYDR-4009 MT ×2 (10:21→11:32)
[2019-12-28] MEDS ORDERED: CHLO25CA10 MT (10:23)
[2019-12-28] MEDS ORDERED: ALBU18HF2 IH (10:23)
[2019-12-28 10:26] VITALS: BP 144/84
== END 2019-12-28 11:40 | disposition home health service (06) | DRG 193 ==
LOC: ER 22:44 → 7WST 12-25 01:07 → EDBEDREQTM 12-25 01:14 → EDBEDREQ 12-25 01:14 → EDBEDREQDT 12-25 01:14 → ENRESERV 12-25 07:41 → 6WST 12-25 23:00
PROVIDERS: ADMIT Internal Medicine; ATTEND Internal Medicine
DX: J18.9 Pneumonia, unspecified organism (principal); J96.21 Acute and chronic respiratory failure with hypoxia; K85.90 Acute pancreatitis without necrosis or infection, unspecified; E43 Unspecified severe protein-calorie malnutrition; J96.22 Acute and chronic respiratory failure with hypercapnia; J44.1 Chronic obstructive pulmonary disease with (acute) exacerbation; I50.32 Chronic diastolic (congestive) heart failure; Z68.1 Body mass index [BMI] 19.9 or less, adult; J44.0 Chronic obstructive pulmonary disease with (acute) lower respiratory infection; I11.0 Hypertensive heart disease with heart failure; F17.210 Nicotine dependence, cigarettes, uncomplicated; B19.20 Unspecified viral hepatitis C without hepatic coma; D64.9 Anemia, unspecified; D72.810 Lymphocytopenia; E87.8 Other disorders of electrolyte and fluid balance, not elsewhere classified; F10.129 Alcohol abuse with intoxication, unspecified; F15.90 Other stimulant use, unspecified, uncomplicated; G40.909 Epilepsy, unspecified, not intractable, without status epilepticus; Y90.4 Blood alcohol level of 80-99 mg/100 ml; R62.7 Adult failure to thrive; Z60.2 Problems related to living alone; Z20.828 Contact with and (suspected) exposure to other viral communicable diseases; M48.02 Spinal stenosis, cervical region; Z96.643 Presence of artificial hip joint, bilateral; Z86.73 Personal history of transient ischemic attack (TIA), and cerebral infarction without residual deficits; Z99.81 Dependence on supplemental oxygen; Z88.0 Allergy status to penicillin
CPT/HCPCS: 36415; 71045; 80048; 80053; 80305; 80320; 81003; 83605; 83880; 84484; 85025; 93005; 94640; 97162; 99291; J1650; J2060; J2920; J2930; J3411; J3475; J3490; J7070; G0480; U0003-CS

== ENCOUNTER 2019-12-30 19:03 | Inpatient (IN) | payer MEDICARE, MEDICAID ==
[~2019-12-30] VITALS: Ht 157.5 cm; Wt 52.2 kg
[~2019-12-30 19:03] MED LIST changes: +CHLO25CA10 MT; +HYDR-4009 MT; -OXYC-515 MT
[2019-12-30] MEDS ORDERED: SODIUM CHLORIDE 0.9% 1,000 ML IV ONE (20:30)
[2019-12-30 22:01] LABS: BASOPHILS % 0.3 % (0.0-2.0); EOSINOPHILS % 1.7 % (0.0-5.0); HEMOGLOBIN. 10.9 g/dL (12.0-16.0); LYMPHOCYTES % 12.2 % (20.0-50.0); MEAN CORPUSCULAR HEMOGLOBIN 34.9 pg (28.0-32.0); MEAN CORPUSCULAR VOLUME 102.6 fL (81.0-99.0); MEAN PLATELET VOLUME 8.3 fl (7.4-10.4); MONOCYTES % 3.2 % (2.0-8.0); NEUTROPHILS % 82.6 % (40.0-76.0); PLATELET 332 x1000/uL (130-400); RED BLOOD CELL COUNT 3.12 mill/uL (4.2-5.4); RED CELL DISTRIBUTION WIDTH 13.9 % (11.6-14.6)
[2019-12-30 22:05] LABS: CHLORIDE 98 mEq/L (98-107)
[2019-12-30 22:10] LABS: ETHANOL BLOOD < 10 mg/dL
[2019-12-31 00:30] VITALS: BP 97/56
[2019-12-31] MEDS ORDERED: ACETAMINOPHEN 325MG TABLET PO PRN (05:45)
[2019-12-31] MEDS ORDERED: ALBUTEROL (0.5%) 2.5MG/0.5ML NEB HHN ONE (06:00)
[2019-12-31] MEDS: CHLORDIAZEPOXIDE 25MG CAPSULE PO SCH ×2 (06:46→17:46)
[2019-12-31 08:00] VITALS: BP 93/61
[2019-12-31] MEDS ORDERED: LEVOFLOXACIN 500MG PREMIX 100 ML IV NR (08:00)
[2019-12-31] MEDS: SODIUM CHLORIDE 0.9% 1,000 ML IV SCH ×2 (08:45→21:47)
[2019-12-31] MEDS ORDERED: SALMETEROL 50 MCG/INH 28 BLIST DISKUS INHR ORI SCH (09:00)
[2019-12-31] MEDS: FAMOTIDINE 20MG TABLET PO SCH (09:00)
[2019-12-31 09:03] LABS: HEMATOCRIT 28.2 % (36.0-48.0); HEMOGLOBIN 9.6 g/dL (12.0-16.0); MEAN CORPUSCULAR HEMOGLOBIN 34.9 pg (28.0-32.0); MEAN CORPUSCULAR VOLUME 102.4 fL (81.0-99.0); PLATELET 258 x1000/uL (130-400); RED BLOOD CELL COUNT 2.76 mill/uL (4.2-5.4); RED CELL DISTRIBUTION WIDTH 13.6 % (11.6-14.6)
[2019-12-31] MEDS: MULTIVITAMINS,THER W-MINERALS TABLET PO SCH (09:04)
[2019-12-31] MEDS: FOLIC ACID 1MG TABLET PO SCH (09:04)
[2019-12-31] MEDS: PREDNISONE 20MG TABLET PO SCH (09:04)
[2019-12-31] MEDS: THIAMINE HCL 100MG TABLET PO SCH (09:04)
[2019-12-31 09:35] LABS: CHLORIDE 105 mEq/L (98-107)
[2019-12-31] MEDS: ALBUTEROL (0.083%) 2.5MG/3ML NEB HHN SCH ×3 (10:08→20:05)
[2019-12-31] MEDS: MORPHINE SULFATE 2 MG/ML CPJ (NOT FOR IM USE) IV PRN ×2 (11:48→19:02)
[2019-12-31 12:00] VITALS: BP 98/60
[2019-12-31 20:00] VITALS: BP 111/60
[2019-12-31] MEDS ORDERED: IOHEXOL-300 100 ML BOTTLE ONE (21:26)
[2020-01-01] VITALS: BP 106/65
[2020-01-01] MEDS: MORPHINE SULFATE 2 MG/ML CPJ (NOT FOR IM USE) IV PRN ×5 (01:41→22:54)
[2020-01-01] MEDS: ALBUTEROL (0.083%) 2.5MG/3ML NEB HHN SCH ×4 (03:00→21:14)
[2020-01-01 04:00] VITALS: BP 120/75
[2020-01-01] MEDS: SODIUM CHLORIDE 0.9% 1,000 ML IV SCH ×3 (06:43→23:24)
[2020-01-01 06:56] LABS: BASOPHILS % 0.1 % (0.0-2.0); EOSINOPHILS % 0.2 % (0.0-5.0); HEMATOCRIT. 27.2 % (36.0-48.0); HEMOGLOBIN. 9.2 g/dL (12.0-16.0); LYMPHOCYTES % 8.2 % (20.0-50.0); MEAN CORPUSCULAR HEMOGLOBIN 34.4 pg (28.0-32.0); MEAN CORPUSCULAR VOLUME 101.7 fL (81.0-99.0); MEAN PLATELET VOLUME 7.9 fl (7.4-10.4); MONOCYTES % 5.1 % (2.0-8.0); NEUTROPHILS % 86.4 % (40.0-76.0); PLATELET 253 x1000/uL (130-400); RED BLOOD CELL COUNT 2.67 mill/uL (4.2-5.4); RED CELL DISTRIBUTION WIDTH 13.6 % (11.6-14.6)
[2020-01-01 07:07] LABS: FERRITIN 249 ng/mL (10-291)
[2020-01-01 07:08] LABS: CHLORIDE 105 mEq/L (98-107)
[2020-01-01 07:28] LABS: TOTAL IRON BINDING CAPACITY 243 ug/dL (250-450)
[2020-01-01 07:52] LABS: VITAMIN B12 SERUM 531 pg/mL (211-911)
[2020-01-01 08:00] VITALS: BP 114/72
[2020-01-01] MEDS ORDERED: LEVOFLOXACIN 250MG PREMIX 50 ML IV SCH (08:00)
[2020-01-01] MEDS: CHLORDIAZEPOXIDE 25MG CAPSULE PO SCH ×2 (08:47→16:52)
[2020-01-01] MEDS: PREDNISONE 20MG TABLET PO SCH (08:47)
[2020-01-01] MEDS: THIAMINE HCL 100MG TABLET PO SCH (08:47)
[2020-01-01] MEDS: FOLIC ACID 1MG TABLET PO SCH (08:47)
[2020-01-01] MEDS: MULTIVITAMINS,THER W-MINERALS TABLET PO SCH (08:47)
[2020-01-01] MEDS: FAMOTIDINE 20MG TABLET PO SCH (09:00)
[2020-01-01 12:00] VITALS: BP 115/72
[2020-01-01 16:00] VITALS: BP 141/83
[2020-01-01 20:00] VITALS: BP 144/83
[2020-01-02] VITALS: BP 142/81
[2020-01-02] MEDS: ALBUTEROL (0.083%) 2.5MG/3ML NEB HHN SCH ×3 (02:08→20:56)
[2020-01-02 04:00] VITALS: BP 128/77
[2020-01-02] MEDS: MORPHINE SULFATE 2 MG/ML CPJ (NOT FOR IM USE) IV PRN ×5 (05:00→23:06)
[2020-01-02 06:50] LABS: BASOPHILS % 0.1 % (0.0-2.0); EOSINOPHILS % 0.3 % (0.0-5.0); HEMATOCRIT. 26.9 % (36.0-48.0); HEMOGLOBIN. 9.1 g/dL (12.0-16.0); LYMPHOCYTES % 10.8 % (20.0-50.0); MEAN CORPUSCULAR HEMOGLOBIN 34.2 pg (28.0-32.0); MEAN CORPUSCULAR VOLUME 101.1 fL (81.0-99.0); MEAN PLATELET VOLUME 7.9 fl (7.4-10.4); MONOCYTES % 7.1 % (2.0-8.0); NEUTROPHILS % 81.7 % (40.0-76.0); PLATELET 258 x1000/uL (130-400); RED BLOOD CELL COUNT 2.66 mill/uL (4.2-5.4); RED CELL DISTRIBUTION WIDTH 13.7 % (11.6-14.6)
[2020-01-02 07:08] LABS: CHLORIDE 106 mEq/L (98-107)
[2020-01-02 08:00] VITALS: BP 143/81
[2020-01-02] MEDS: THIAMINE HCL 100MG TABLET PO SCH (08:38)
[2020-01-02] MEDS: FAMOTIDINE 20MG TABLET PO SCH (08:38)
[2020-01-02] MEDS: MULTIVITAMINS,THER W-MINERALS TABLET PO SCH (08:39)
[2020-01-02] MEDS: CHLORDIAZEPOXIDE 25MG CAPSULE PO SCH ×2 (08:39→21:15)
[2020-01-02] MEDS: PREDNISONE 20MG TABLET PO SCH (08:39)
[2020-01-02] MEDS: FOLIC ACID 1MG TABLET PO SCH (08:39)
[2020-01-02] MEDS: SODIUM CHLORIDE 0.9% 1,000 ML IV SCH ×2 (10:35→17:47)
[2020-01-02 12:00] VITALS: BP 145/81
[2020-01-02] MEDS ORDERED: SODIUM BICARBONATE 4% (2.4MEQ) 5ML VIAL IV ONE (13:50)
[2020-01-02] MEDS ORDERED: LIDOCAINE HCL 1% 20ML VIAL (Pyxis) INJ ONE (13:50)
[2020-01-02 16:00] VITALS: BP 140/77
[2020-01-02 20:00] VITALS: BP 159/78
[2020-01-03] VITALS: BP 148/75
[2020-01-03] MEDS: ALBUTEROL (0.083%) 2.5MG/3ML NEB HHN SCH ×2 (02:21→08:46)
[2020-01-03] MEDS: MORPHINE SULFATE 2 MG/ML CPJ (NOT FOR IM USE) IV PRN ×2 (03:10→07:13)
[2020-01-03] MEDS: SODIUM CHLORIDE 0.9% 1,000 ML IV SCH ×2 (03:11→10:28)
[2020-01-03 04:00] VITALS: BP 139/70
[2020-01-03] MEDS: CHLORDIAZEPOXIDE 25MG CAPSULE PO SCH ×2 (05:23→14:39)
[2020-01-03 06:20] LABS: CHLORIDE 110 mEq/L (98-107)
[2020-01-03 07:22] LABS: BASOPHILS % 0.1 % (0.0-2.0); EOSINOPHILS % 0.3 % (0.0-5.0); HEMATOCRIT. 25.7 % (36.0-48.0); HEMOGLOBIN. 8.8 g/dL (12.0-16.0); LYMPHOCYTES % 14.5 % (20.0-50.0); MEAN CORPUSCULAR HEMOGLOBIN 34.8 pg (28.0-32.0); MEAN PLATELET VOLUME 7.7 fl (7.4-10.4); MONOCYTES % 9.9 % (2.0-8.0); NEUTROPHILS % 75.2 % (40.0-76.0); PLATELET 258 x1000/uL (130-400); RED BLOOD CELL COUNT 2.54 mill/uL (4.2-5.4); RED CELL DISTRIBUTION WIDTH 13.6 % (11.6-14.6)
[2020-01-03 08:00] VITALS: BP 138/72
[2020-01-03 09:06] LABS: FOLATE HEMATOCRIT 25.9 % (34.0-46.6)
[2020-01-03] MEDS: FOLIC ACID 1MG TABLET PO SCH (10:26)
[2020-01-03] MEDS: FAMOTIDINE 20MG TABLET PO SCH (10:26)
[2020-01-03] MEDS: PREDNISONE 20MG TABLET PO SCH (10:27)
[2020-01-03] MEDS ORDERED: MORPHINE SULFATE 2 MG/ML CPJ (NOT FOR IM USE) IV PRN (10:30)
[2020-01-03] MEDS: THIAMINE HCL 100MG TABLET PO SCH (10:44)
[2020-01-03] MEDS: MULTIVITAMINS,THER W-MINERALS TABLET PO SCH (10:44)
[2020-01-03 12:00] VITALS: BP 119/70
[2020-01-03 13:11] LABS: FOLATE RBC 1618 ng/mL (>498)
[2020-01-03] MEDS ORDERED: CHLO25CA10 MT (14:59)
[2020-01-03 16:00] VITALS: BP 137/84
[2020-01-03 16:54] VITALS: BP 137/84
== END 2020-01-03 17:38 | disposition home or self-care (01) | DRG 439 ==
LOC: ER 19:03 → ENRESERV 22:37 → 6EST 12-31 01:03
PROVIDERS: ADMIT Internal Medicine; ATTEND Internal Medicine
PROC: 02HV33Z Insertion of Infusion Device into Superior Vena Cava, Percutaneous Approach (ICD-10-PCS; principal; 2020-01-02)
PROC: B548ZZA Ultrasonography of Superior Vena Cava, Guidance (ICD-10-PCS; 2020-01-02)
PROC: B5181ZA Fluoroscopy of Superior Vena Cava using Low Osmolar Contrast, Guidance (ICD-10-PCS; 2020-01-02)
DX: K85.20 Alcohol induced acute pancreatitis without necrosis or infection (principal); E44.1 Mild protein-calorie malnutrition; J44.9 Chronic obstructive pulmonary disease, unspecified; F10.10 Alcohol abuse, uncomplicated; F17.210 Nicotine dependence, cigarettes, uncomplicated; I10 Essential (primary) hypertension; B19.20 Unspecified viral hepatitis C without hepatic coma; K86.89 Other specified diseases of pancreas; N32.89 Other specified disorders of bladder; I48.91 Unspecified atrial fibrillation; D50.9 Iron deficiency anemia, unspecified; Z96.649 Presence of unspecified artificial hip joint; K83.8 Other specified diseases of biliary tract; Z68.21 Body mass index [BMI] 21.0-21.9, adult; Z79.899 Other long term (current) drug therapy; Z98.1 Arthrodesis status; Z09 Encounter for follow-up examination after completed treatment for conditions other than malignant neoplasm; Z87.81 Personal history of (healed) traumatic fracture; Z86.73 Personal history of transient ischemic attack (TIA), and cerebral infarction without residual deficits; Z71.41 Alcohol abuse counseling and surveillance of alcoholic; Z71.6 Tobacco abuse counseling; Z88.0 Allergy status to penicillin; Y90.0 Blood alcohol level of less than 20 mg/100 ml; K76.0 Fatty (change of) liver, not elsewhere classified; D53.9 Nutritional anemia, unspecified; R74.0 Nonspecific elevation of levels of transaminase and lactic acid dehydrogenase [LDH]
CPT/HCPCS: 36415; 36573; 71045; 74177; 76700; 76937; 80048; 80053; 80076; 80320; 82248; 82270; 82378; 82607; 82728; 82747; 83540; 83550; 83605; 84443; 84484; 85014; 85025; 85027; 86301; 93005; 94640; 99285; C1725; J1956; J2270; J3490; J7030; J7512; Q9967; G0480

== ENCOUNTER 2020-01-04 17:08 | Emergency (ER) | payer MEDICARE, MEDICAID ==
[~2020-01-04] VITALS: Ht 162.6 cm; Wt 49.0 kg
[~2020-01-04 17:08] MED LIST changes: -MED4 MT
[2020-01-04] MEDS ORDERED: SODIUM CHLORIDE 0.9% 1,000 ML IV NR (21:30)
[2020-01-04] MEDS ORDERED: ONDANSETRON HCL 4MG/2ML INJ IV NR (21:30)
[2020-01-04] MEDS ORDERED: MORPHINE SULFATE 4 MG/ML CPJ (NOT FOR IM USE) IV NR (21:30)
[2020-01-04 21:34] LABS: BASOPHILS % 0.1 % (0.0-2.0); EOSINOPHILS % 1.7 % (0.0-5.0); HEMATOCRIT. 30.4 % (36.0-48.0); HEMOGLOBIN. 10.1 g/dL (12.0-16.0); LYMPHOCYTES % 18.5 % (20.0-50.0); MEAN CORPUSCULAR HEMOGLOBIN 33.5 pg (28.0-32.0); MEAN CORPUSCULAR VOLUME 100.8 fL (81.0-99.0); MEAN PLATELET VOLUME 6.7 fl (7.4-10.4); MONOCYTES % 8.2 % (2.0-8.0); NEUTROPHILS % 71.5 % (40.0-76.0); PLATELET 330 x1000/uL (130-400); RED BLOOD CELL COUNT 3.01 mill/uL (4.2-5.4); RED CELL DISTRIBUTION WIDTH 13.5 % (11.6-14.6)
[2020-01-04 21:40] LABS: CHLORIDE 112 mEq/L (98-107)
[2020-01-04 21:44] LABS: ETHANOL BLOOD < 10 mg/dL
[2020-01-05 01:28] VITALS: BP 114/69
== END 2020-01-05 02:12 | disposition home or self-care (01) ==
LOC: ER 17:08
DX: K85.90 Acute pancreatitis without necrosis or infection, unspecified (principal); I10 Essential (primary) hypertension; F10.10 Alcohol abuse, uncomplicated; Y90.0 Blood alcohol level of less than 20 mg/100 ml; D53.9 Nutritional anemia, unspecified; J45.909 Unspecified asthma, uncomplicated; J44.9 Chronic obstructive pulmonary disease, unspecified
CPT/HCPCS: 36415; 80053; 80320; 83690; 85025; 93005; 96374; 96375; 99285; J2270; J2405; G0480

== ENCOUNTER 2020-01-08 03:22 | Emergency (ER) | payer MEDICARE, MEDICAID ==
[~2020-01-08] VITALS: Ht 271.8 cm; Wt 55.0 kg
[2020-01-08 04:35] LABS: BG BASE EXCESS 2.1 mmol/L (-2.0-2.0); BG CARBOXYHEMOGLOBIN 0.3 % (0.5-1.5); BG DEOXYHEMOGLOBIN 1.4 % (0.0-5.0); BG FRACTION INSPIRED OXYGEN 28; BG HCO3 ACT 30.1 mmol/L (22.0-26.0); BG METHEMOGLOBIN 0.4 % (0.0-1.5); BG OXYGEN SATURATION 98.6 % (92.0-98.5); BG OXYHEMOGLOBIN 97.9 % (94.0-97.0); BG PCO2 67.4 mmHg (35.0-45.0); BG PH 7.268 (7.350-7.450); BG PO2 153.8 mmHg (75.0-100.0); BG SAMPLE SITE RIGHT RADIAL; BG TOTAL HEMOGLOBIN 10.1 g/dL (12.0-18.0); BG VENT MODE NASAL CANNULA
[2020-01-08 04:51] LABS: BASOPHILS % 0.2 % (0.0-2.0); EOSINOPHILS % 1.7 % (0.0-5.0); HEMATOCRIT. 28.4 % (36.0-48.0); HEMOGLOBIN. 9.3 g/dL (12.0-16.0); LYMPHOCYTES % 20.5 % (20.0-50.0); MEAN CORPUSCULAR HEMOGLOBIN 33.4 pg (28.0-32.0); MEAN CORPUSCULAR VOLUME 102.2 fL (81.0-99.0); MEAN PLATELET VOLUME 7.4 fl (7.4-10.4); MONOCYTES % 4.2 % (2.0-8.0); NEUTROPHILS % 73.4 % (40.0-76.0); PLATELET 223 x1000/uL (130-400); RED BLOOD CELL COUNT 2.78 mill/uL (4.2-5.4)
[2020-01-08 04:53] LABS: CHLORIDE 110 mEq/L (98-107)
[2020-01-08] MEDS ORDERED: METHYLPREDNISOLONE SOD SUCC 125 MG/2 ML VIAL IV STA (05:10)
[2020-01-08] MEDS ORDERED: MAGNESIUM 2 G PREMIX 50 ML IV ONE (05:15)
[2020-01-08] MEDS ORDERED: ALBUTEROL (0.083%) 2.5MG/3ML NEB HHN STA (05:51)
[2020-01-08] MEDS ORDERED: IPRATROPIUM BROMIDE (0.02%) 0.5MG/2.5ML NEB HHN STA (05:51)
[2020-01-08 11:35] VITALS: BP 108/72
== END 2020-01-08 11:38 | disposition left against medical advice (07) ==
LOC: ER 03:22 → EDBEDREQSVC 05:32 → EDBEDREQTM 05:32 → EDBEDREQ 05:32 → CANBEDREQ 11:26 → ER 11:38
DX: I50.9 Heart failure, unspecified (principal); I11.0 Hypertensive heart disease with heart failure; Z20.828 Contact with and (suspected) exposure to other viral communicable diseases; J44.9 Chronic obstructive pulmonary disease, unspecified; Z88.0 Allergy status to penicillin; Z79.899 Other long term (current) drug therapy
CPT/HCPCS: 36415; 36600; 71045; 80053; 82375; 82805; 83605; 83880; 84145; 84484; 85025; 87040; 93005; 94640; 96365; 96375; 99291; C9803; J2930; J3475; U0003

== ENCOUNTER 2020-01-10 06:13 | Inpatient (IN) | payer MEDICARE, MEDICAID ==
[~2020-01-10] VITALS: Ht 157.5 cm; Wt 44.0 kg
[2020-01-10] MEDS ORDERED: ALBUTEROL (0.083%) 2.5MG/3ML NEB HHN STA (08:57)
[2020-01-10] MEDS ORDERED: METHYLPREDNISOLONE SOD SUCC 125 MG/2 ML VIAL IV STA (08:57)
[2020-01-10] MEDS ORDERED: IPRATROPIUM BROMIDE (0.02%) 0.5MG/2.5ML NEB HHN STA (08:57)
[2020-01-10] MEDS ORDERED: MAGNESIUM 2 G PREMIX 50 ML IV ONE (09:00)
[2020-01-10 09:08] LABS: BASOPHILS % 0.4 % (0.0-2.0); EOSINOPHILS % 0.3 % (0.0-5.0); HEMATOCRIT. 26.9 % (36.0-48.0); HEMOGLOBIN. 8.7 g/dL (12.0-16.0); LYMPHOCYTES % 16.9 % (20.0-50.0); MEAN CORPUSCULAR HEMOGLOBIN 33.4 pg (28.0-32.0); MEAN CORPUSCULAR VOLUME 103.1 fL (81.0-99.0); MEAN PLATELET VOLUME 7.5 fl (7.4-10.4); MONOCYTES % 6.4 % (2.0-8.0); PLATELET 219 x1000/uL (130-400); RED BLOOD CELL COUNT 2.61 mill/uL (4.2-5.4); RED CELL DISTRIBUTION WIDTH 13.6 % (11.6-14.6)
[2020-01-10 09:14] LABS: CHLORIDE 116 mEq/L (98-107)
[2020-01-10] MEDS ORDERED: METHYLPREDNISOLONE SOD SUCC 125 MG/2 ML VIAL ONE (09:18)
[2020-01-10 09:19] LABS: ETHANOL BLOOD < 10 mg/dL
[2020-01-10] MEDS ORDERED: ALBUTEROL (0.5%) 2.5MG/0.5ML NEB HHN ONE (09:22)
[2020-01-10] MEDS ORDERED: IPRATROPIUM/ALBUTEROL 0.5-3(2.5)MG/3ML NEB ONE (09:23)
[2020-01-10] MEDS ORDERED: FUROSEMIDE 20MG/2ML VIAL IVP ONE (09:45)
[2020-01-10] MEDS ORDERED: IPRATROPIUM BROMIDE (0.02%) 0.5MG/2.5ML NEB ONE (09:48)
[2020-01-10] MEDS ORDERED: TRAMADOL 50MG TABLET PO PRN (10:15)
[2020-01-10] MEDS ORDERED: IPRATROPIUM/ALBUTEROL 0.5-3(2.5)MG/3ML NEB NEB PRN (10:15)
[2020-01-10] MEDS ORDERED: CLONIDINE 0.1MG TABLET PO PRN (10:15)
[2020-01-10] MEDS ORDERED: NITROGLYCERIN 0.4MG TABLET SL SL PRN (10:15)
[2020-01-10] MEDS ORDERED: MAGNESIUM/ALUMINUM HYDROXIDE/SIMETHICONE 30ML UDC PO PRN (10:15)
[2020-01-10] MEDS ORDERED: ACETAMINOPHEN 325MG TABLET PO PRN ×2 (10:15)
[2020-01-10] MEDS ORDERED: DOCUSATE SODIUM 100MG CAPSULE PO PRN (10:15)
[2020-01-10] MEDS ORDERED: GUAIFENESIN 200MG/10ML SUGAR FREE UDC PO PRN (10:15)
[2020-01-10] MEDS ORDERED: ONDANSETRON HCL 4MG/2ML INJ IV PRN (10:15)
[2020-01-10] MEDS ORDERED: LEVOFLOXACIN 500MG PREMIX 100 ML IV NR (11:00)
[2020-01-10 11:06] LABS: T4 FREE 0.95 ng/dL (0.76-1.46)
[2020-01-10 11:13] LABS: *AMPHETAMINES SCREEN URINE NEGATIVE (NEGATIVE); *BARBITURATES SCREEN URINE NEGATIVE (NEGATIVE); *BENZODIAZEPINES SCREEN URINE PRESUMTIVE POSITIVE (NEGATIVE)
[2020-01-10 11:14] LABS: *COCAINE SCREEN URINE NEGATIVE (NEGATIVE); CANNABINOID URINE SCREEN NEGATIVE (NEGATIVE); OPIATES URINE SCREEN PRESUMTIVE POSITIVE (NEGATIVE); PHENCYCLIDINE URINE SCREEN NEGATIVE (NEGATIVE)
[2020-01-10 11:15] LABS: METHADONE URINE SCREEN NEGATIVE (NEGATIVE)
[2020-01-10 11:28] LABS: VITAMIN B12 SERUM 624 pg/mL (211-911)
[2020-01-10 11:29] LABS: FOLIC ACID (FOLATE) SERUM > 20.00 ng/mL (>5.38)
[2020-01-10] MEDS: IPRATROPIUM/ALBUTEROL 0.5-3(2.5)MG/3ML NEB HHN SCH ×2 (11:56→17:00)
[2020-01-10] MEDS: GUAIFENESIN/DM 600MG/30MG ER TAB 12HR PO SCH ×2 (12:20→22:59)
[2020-01-10] MEDS: ENOXAPARIN 30MG/0.3ML SYR SUBCUT SCH (12:21)
[2020-01-10] MEDS: KETOROLAC 15MG/ML VIAL IV PRN ×3 (12:24→22:57)
[2020-01-10 14:53] LABS: CREATINE KINASE 187 IU/L (26-192); CREATINE KINASE MB FRACTION < 1.0 ng/mL (0.5-3.6)
[2020-01-10] MEDS: METHYLPREDNISOLONE SOD SUCC 125 MG/2 ML VIAL IV SCH ×2 (16:00→22:58)
[2020-01-10] MEDS ORDERED: ZOLPIDEM TARTRATE 5MG TABLET PO PRN (21:00)
[2020-01-10 21:05] VITALS: BP 125/74
[2020-01-10] MEDS: FAMOTIDINE 20MG TABLET PO SCH (22:58)
[2020-01-10] MEDS: ASCORBIC ACID 500 MG TABLET PO SCH (22:58)
[2020-01-11] VITALS (7 sets, daily range): BP systolic 102–161; BP diastolic 60–96
[2020-01-11 00:57] LABS: CREATINE KINASE 118 IU/L (26-192)
[2020-01-11] MEDS: METHYLPREDNISOLONE SOD SUCC 125 MG/2 ML VIAL IV SCH ×3 (05:48→20:44)
[2020-01-11] MEDS: ASPIRIN 81MG EC TABLET PO SCH (08:53)
[2020-01-11] MEDS: ENOXAPARIN 30MG/0.3ML SYR SUBCUT SCH (08:54)
[2020-01-11] MEDS: ASCORBIC ACID 500 MG TABLET PO SCH ×2 (08:54→20:44)
[2020-01-11] MEDS: GUAIFENESIN/DM 600MG/30MG ER TAB 12HR PO SCH ×2 (08:54→20:44)
[2020-01-11] MEDS: ZINC SULFATE 220 MG ( 50 ) CAPSULE PO SCH (09:00)
[2020-01-11] MEDS: KETOROLAC 15MG/ML VIAL IV PRN ×2 (09:10→16:37)
[2020-01-11] MEDS ORDERED: LEVOFLOXACIN 250MG PREMIX 50 ML IV SCH (11:00)
[2020-01-11 11:16] LABS: HEMATOCRIT. 24.3 % (36.0-48.0); HEMOGLOBIN. 8.2 g/dL (12.0-16.0); MEAN CORPUSCULAR HEMOGLOBIN 33.4 pg (28.0-32.0); MEAN CORPUSCULAR VOLUME 99.2 fL (81.0-99.0); MEAN PLATELET VOLUME 7.2 fl (7.4-10.4); PLATELET 210 x1000/uL (130-400); RED BLOOD CELL COUNT 2.45 mill/uL (4.2-5.4); RED CELL DISTRIBUTION WIDTH 13.1 % (11.6-14.6)
[2020-01-11] MEDS: IPRATROPIUM/ALBUTEROL 0.5-3(2.5)MG/3ML NEB HHN SCH ×2 (20:00→20:30)
[2020-01-11] MEDS: FAMOTIDINE 20MG TABLET PO SCH (20:44)
[2020-01-12] VITALS: BP 138/66
[2020-01-12 04:00] VITALS: BP 110/70
[2020-01-12] MEDS: METHYLPREDNISOLONE SOD SUCC 125 MG/2 ML VIAL IV SCH (05:39)
[2020-01-12 07:40] LABS: CHLORIDE 102 mEq/L (98-107)
[2020-01-12 07:48] LABS: PHOSPHORUS 2.5 mg/dL (2.5-4.9)
[2020-01-12 07:58] LABS: BASOPHILS % 0.1 % (0.0-2.0); HEMATOCRIT. 24.8 % (36.0-48.0); HEMOGLOBIN. 8.4 g/dL (12.0-16.0); LYMPHOCYTES % 9.7 % (20.0-50.0); MEAN CORPUSCULAR HEMOGLOBIN 33.6 pg (28.0-32.0); MEAN CORPUSCULAR VOLUME 98.4 fL (81.0-99.0); MEAN PLATELET VOLUME 8.3 fl (7.4-10.4); MONOCYTES % 2.8 % (2.0-8.0); NEUTROPHILS % 87.4 % (40.0-76.0); PLATELET 251 x1000/uL (130-400); RED BLOOD CELL COUNT 2.52 mill/uL (4.2-5.4)
[2020-01-12 08:00] VITALS: BP 142/78
[2020-01-12] MEDS: ENOXAPARIN 30MG/0.3ML SYR SUBCUT SCH (08:43)
[2020-01-12] MEDS: ASPIRIN 81MG EC TABLET PO SCH (08:43)
[2020-01-12] MEDS: GUAIFENESIN/DM 600MG/30MG ER TAB 12HR PO SCH (08:44)
[2020-01-12] MEDS: ZINC SULFATE 220 MG ( 50 ) CAPSULE PO SCH (08:44)
[2020-01-12] MEDS: ASCORBIC ACID 500 MG TABLET PO SCH (08:44)
[2020-01-12 12:45] LABS: PLATELET ESTIMATE NORMAL
== END 2020-01-12 11:55 | disposition left against medical advice (07) | DRG 189 ==
LOC: ER 06:13 → 8WST 09:24 → EDBEDREQ 09:33 → EDBEDREQTM 09:33 → SUPCPDRO 10:12 → ENRESERV 19:34
PROVIDERS: ADMIT Internal Medicine; ATTEND Internal Medicine
DX: J96.00 Acute respiratory failure, unspecified whether with hypoxia or hypercapnia (principal); E43 Unspecified severe protein-calorie malnutrition; J44.1 Chronic obstructive pulmonary disease with (acute) exacerbation; E87.0 Hyperosmolality and hypernatremia; Z68.1 Body mass index [BMI] 19.9 or less, adult; R07.9 Chest pain, unspecified; D63.8 Anemia in other chronic diseases classified elsewhere; Z53.29 Procedure and treatment not carried out because of patient's decision for other reasons; E83.51 Hypocalcemia; I10 Essential (primary) hypertension; Z87.891 Personal history of nicotine dependence; Z88.0 Allergy status to penicillin; Z79.899 Other long term (current) drug therapy
CPT/HCPCS: 36415; 36600; 71045; 80048; 80053; 80305; 80320; 82375; 82550; 82553; 82607; 82746; 82805; 83540; 83550; 83605; 83735; 83880; 84100; 84145; 84439; 84443; 84484; 85025; 86850; 86900; 93005; 93306; 93970; 94640; 94644; 97162; 99291; J1650; J1885; J1940; J1956; J2930; J3475; C9803-CS; G0480; U0003-CS

== ENCOUNTER 2020-01-17 17:01 | Emergency (ER) | payer MEDICARE, MEDICAID ==
[~2020-01-17] VITALS: Ht 162.6 cm; Wt 45.0 kg
[2020-01-17 19:10] LABS: BASOPHILS % 0.4 % (0.0-2.0); EOSINOPHILS % 1.9 % (0.0-5.0); HEMATOCRIT. 26.2 % (36.0-48.0); HEMOGLOBIN. 8.7 g/dL (12.0-16.0); LYMPHOCYTES % 26.1 % (20.0-50.0); MEAN CORPUSCULAR VOLUME 99.9 fL (81.0-99.0); MEAN PLATELET VOLUME 7.8 fl (7.4-10.4); MONOCYTES % 9.2 % (2.0-8.0); NEUTROPHILS % 62.4 % (40.0-76.0); PLATELET 381 x1000/uL (130-400); RED BLOOD CELL COUNT 2.63 mill/uL (4.2-5.4); RED CELL DISTRIBUTION WIDTH 13.1 % (11.6-14.6)
[2020-01-17 19:15] LABS: CHLORIDE 105 mEq/L (98-107)
[2020-01-17] MEDS ORDERED: SODIUM CHLORIDE 0.9% 500 ML IV ONE (19:30)
[2020-01-17 22:43] VITALS: BP 130/77
== END 2020-01-17 23:31 | disposition left against medical advice (07) ==
LOC: ER 17:01
DX: R07.89 Other chest pain (principal); I10 Essential (primary) hypertension; J44.9 Chronic obstructive pulmonary disease, unspecified; Z88.0 Allergy status to penicillin; Z99.81 Dependence on supplemental oxygen; Z87.19 Personal history of other diseases of the digestive system
CPT/HCPCS: 36415; 70450; 71045; 80053; 83880; 84484; 85025; 85379; 93005; 99285; J7040

== ENCOUNTER 2020-05-15 09:50 | Emergency (ER) | payer MEDICARE, MEDICAID ==
[~2020-05-15] VITALS: Ht 157.5 cm; Wt 50.0 kg
[~2020-05-15 09:50] MED LIST changes: +LEVO500T2 PO; -LOSA50TA3 PO; +P50 MT
[2020-05-15] MEDS ORDERED: SODIUM CHLORIDE 0.9% 1,000 ML IV ONE (10:15)
[2020-05-15 10:29] VITALS: BP 153/96
[2020-05-15 11:30] LABS: HEMATOCRIT. 34.9 % (36.0-48.0); HEMOGLOBIN. 11.4 g/dL (12.0-16.0); MEAN CORPUSCULAR HEMOGLOBIN 29.3 pg (28.0-32.0); MEAN CORPUSCULAR VOLUME 89.7 fL (81.0-99.0); MEAN PLATELET VOLUME 7.8 fl (7.4-10.4); PLATELET 327 x1000/uL (130-400); RED BLOOD CELL COUNT 3.89 mill/uL (4.2-5.4)
[2020-05-15 11:40] LABS: CHLORIDE 101 mEq/L (98-107)
[2020-05-15 11:46] LABS: ETHANOL BLOOD < 10 mg/dL
[2020-05-15 12:21] LABS: PLATELET ESTIMATE NORMAL
== END 2020-05-15 11:47 | disposition left against medical advice (07) ==
LOC: ER 10:05
DX: T40.1X1A Poisoning by heroin, accidental (unintentional), initial encounter (principal); I11.0 Hypertensive heart disease with heart failure; I50.9 Heart failure, unspecified; J44.9 Chronic obstructive pulmonary disease, unspecified; Z88.0 Allergy status to penicillin; Y92.018 Other place in single-family (private) house as the place of occurrence of the external cause
CPT/HCPCS: 36415; 80053; 80307; 80320; 80329; 85025; 93005; 96360; 99284; J7030; G0480

== ENCOUNTER 2020-05-22 01:02 | Inpatient (IN) | payer MEDICARE, MEDICAID ==
[~2020-05-22] VITALS: Ht 152.4 cm; Wt 39.9 kg
[2020-05-22] MEDS ORDERED: ACETAMINOPHEN 325MG TABLET PO STA (02:12)
[2020-05-22 02:46] LABS: BASOPHILS % 0.2 % (0.0-2.0); EOSINOPHILS % 1.8 % (0.0-5.0); HEMATOCRIT. 30.5 % (36.0-48.0); HEMOGLOBIN. 9.9 g/dL (12.0-16.0); LYMPHOCYTES % 24.4 % (20.0-50.0); MEAN CORPUSCULAR HEMOGLOBIN 29.2 pg (28.0-32.0); MEAN CORPUSCULAR VOLUME 89.8 fL (81.0-99.0); MEAN PLATELET VOLUME 6.9 fl (7.4-10.4); NEUTROPHILS % 65.6 % (40.0-76.0); PLATELET 414 x1000/uL (130-400); RED BLOOD CELL COUNT 3.39 mill/uL (4.2-5.4); RED CELL DISTRIBUTION WIDTH 14.8 % (11.6-14.6)
[2020-05-22 02:53] LABS: CHLORIDE 105 mEq/L (98-107)
[2020-05-22 02:55] LABS: INR 0.9
[2020-05-22] MEDS ORDERED: ASPIRIN 81MG TABLET PO ONE (03:45)
[2020-05-22] MEDS ORDERED: LORAZEPAM 0.5MG TABLET PO PRN (07:15)
[2020-05-22] MEDS ORDERED: ACETAMINOPHEN 325MG TABLET PO PRN ×2 (07:15)
[2020-05-22] MEDS ORDERED: GUAIFENESIN 200MG/10ML SUGAR FREE UDC PO PRN (07:15)
[2020-05-22] MEDS ORDERED: NITROGLYCERIN 0.4MG TABLET SL SL PRN (07:15)
[2020-05-22] MEDS ORDERED: MAGNESIUM/ALUMINUM HYDROXIDE/SIMETHICONE 30ML UDC PO PRN (07:15)
[2020-05-22] MEDS ORDERED: CLONIDINE 0.1MG TABLET PO PRN (07:15)
[2020-05-22] MEDS ORDERED: IPRATROPIUM/ALBUTEROL 0.5-3(2.5)MG/3ML NEB NEB PRN (07:15)
[2020-05-22] MEDS ORDERED: DOCUSATE SODIUM 100MG CAPSULE PO PRN (07:15)
[2020-05-22 07:45] LABS: ETHANOL BLOOD < 10 mg/dL
[2020-05-22 07:47] LABS: TOTAL IRON BINDING CAPACITY 327 ug/dL (250-450)
[2020-05-22 07:48] LABS: LDL CHOLESTEROL 88 mg/dL (5-100)
[2020-05-22 07:50] LABS: HDL CHOLESTEROL 65 mg/dL (40-59)
[2020-05-22 08:01] LABS: FOLIC ACID (FOLATE) SERUM >20 ng/mL ng/mL (>5.38)
[2020-05-22 08:12] LABS: VITAMIN B12 SERUM 534 pg/mL (211-911)
[2020-05-22] MEDS ORDERED: FUROSEMIDE 40MG/4ML VIAL IVP SCH (09:00)
[2020-05-22] MEDS: GUAIFENESIN/DM 600MG/30MG ER TAB 12HR PO SCH ×2 (09:37→22:10)
[2020-05-22] MEDS: ASCORBIC ACID 500 MG TABLET PO SCH ×2 (09:37→22:10)
[2020-05-22] MEDS: FAMOTIDINE 20MG TABLET PO SCH (09:38)
[2020-05-22] MEDS: ZINC SULFATE 220 MG ( 50 ) CAPSULE PO SCH (09:38)
[2020-05-22] MEDS: SPIRONOLACTONE 25MG TABLET PO SCH ×2 (09:38→22:25)
[2020-05-22] MEDS: ENOXAPARIN 40MG/0.4ML SYR SUBCUT SCH ×2 (09:41→22:10)
[2020-05-22] MEDS: HYDROCODONE/ACETAMINOPHEN 10/325MG TABLET PO PRN ×3 (09:55→23:20)
[2020-05-22 13:36] VITALS: BP 149/92
[2020-05-22 13:46] VITALS: BP 149/92
[2020-05-22] MEDS: ISOSORBIDE DINITRATE 10MG TABLET PO SCH ×2 (14:08→22:12)
[2020-05-22 16:00] VITALS: BP 111/62
[2020-05-22] MEDS: CARVEDILOL 3.125 MG TABLET PO SCH (18:07)
[2020-05-22 18:09] LABS: CREATINE KINASE MB FRACTION 7.9 ng/mL (0.5-3.6)
[2020-05-22 20:00] VITALS: BP 120/77
[2020-05-22] MEDS ORDERED: ZOLPIDEM TARTRATE 5MG TABLET PO PRN (21:00)
[2020-05-22 22:00] VITALS: BP 105/76
[2020-05-22 23:46] LABS: CREATINE KINASE MB FRACTION 6.8 ng/mL (0.5-3.6)
[2020-05-23 00:05] VITALS: BP 110/76
[2020-05-23 02:00] VITALS: BP 126/83
[2020-05-23 05:34] LABS: BASOPHILS % 0.3 % (0.0-2.0); EOSINOPHILS % 1.9 % (0.0-5.0); HEMATOCRIT. 30.1 % (36.0-48.0); LYMPHOCYTES % 16.7 % (20.0-50.0); MEAN CORPUSCULAR HEMOGLOBIN 29.8 pg (28.0-32.0); MEAN CORPUSCULAR VOLUME 90.1 fL (81.0-99.0); MEAN PLATELET VOLUME 7.6 fl (7.4-10.4); MONOCYTES % 7.6 % (2.0-8.0); NEUTROPHILS % 73.5 % (40.0-76.0); PLATELET 396 x1000/uL (130-400); RED BLOOD CELL COUNT 3.35 mill/uL (4.2-5.4)
[2020-05-23 05:55] LABS: CHLORIDE 98 mEq/L (98-107)
[2020-05-23] MEDS: CARVEDILOL 3.125 MG TABLET PO SCH ×2 (06:00→17:22)
[2020-05-23 06:07] LABS: PHOSPHORUS 3.1 mg/dL (2.5-4.9)
[2020-05-23] MEDS ORDERED: LIDOCAINE HCL 1% 20ML VIAL (Pyxis) INJ ONE ×2 (07:29→07:31)
[2020-05-23] MEDS ORDERED: MIDAZOLAM HCL 5 MG/5 ML VIAL ONE (07:29)
[2020-05-23] MEDS ORDERED: FENTANYL CITRATE/PF 50MCG/ML 5ML VIAL ONE (07:29)
[2020-05-23] MEDS ORDERED: VERAPAMIL HCL 2.5 MG/1 ML 2ML VIAL IV ONE (07:30)
[2020-05-23] MEDS ORDERED: IODIXANOL 320MG/ML 100 ML BOTTLE IV ONE ×2 (07:30→08:15)
[2020-05-23] MEDS ORDERED: NITROGLYCERIN 50MCG/ML 10ML VIAL (CATH LAB) IV ONE (08:00)
[2020-05-23] MEDS ORDERED: NICARDIPINE 100MCG/ML 10ML VIAL (CATH LAB) IV ONE (08:00)
[2020-05-23] MEDS ORDERED: HEPARIN SODIUM 1,000 UNIT/1ML VIAL IV ONE (08:00)
[2020-05-23] MEDS: FAMOTIDINE 20MG TABLET PO SCH (09:00)
[2020-05-23] MEDS: ZINC SULFATE 220 MG ( 50 ) CAPSULE PO SCH (09:00)
[2020-05-23] MEDS: SPIRONOLACTONE 25MG TABLET PO SCH ×2 (09:00→22:22)
[2020-05-23] MEDS: ASCORBIC ACID 500 MG TABLET PO SCH ×2 (09:00→22:22)
[2020-05-23] MEDS: GUAIFENESIN/DM 600MG/30MG ER TAB 12HR PO SCH ×2 (09:00→22:22)
[2020-05-23] MEDS: ENOXAPARIN 40MG/0.4ML SYR SUBCUT SCH ×2 (09:00→22:24)
[2020-05-23] MEDS: ASPIRIN 81MG EC TABLET PO SCH (09:00)
[2020-05-23] MEDS ORDERED: ASPIRIN 325MG EC TABLET PO SCH (09:00)
[2020-05-23] MEDS ORDERED: LORAZEPAM 2MG/ML CPJ IV NR (10:30)
[2020-05-23] MEDS: LORAZEPAM 2MG/ML CPJ IV PRN ×2 (10:48→15:04)
[2020-05-23] MEDS: SODIUM CHLORIDE 0.45% 1,000 ML IV SCH ×2 (17:19→17:20)
[2020-05-23] MEDS: ISOSORBIDE MONONITRATE 30MG TABLET SR 24HR PO SCH (17:19)
[2020-05-23] MEDS: HYDROCODONE/ACETAMINOPHEN 10/325MG TABLET PO PRN (18:31)
[2020-05-23 20:00] VITALS: BP 116/84
[2020-05-24] VITALS: BP 141/91
[2020-05-24] MEDS: HYDROCODONE/ACETAMINOPHEN 10/325MG TABLET PO PRN (00:03)
[2020-05-24 04:00] VITALS: BP 121/93
[2020-05-24] MEDS: CARVEDILOL 3.125 MG TABLET PO SCH ×2 (05:53→17:17)
[2020-05-24 07:25] LABS: BASOPHILS % 0.4 % (0.0-2.0); EOSINOPHILS % 1.3 % (0.0-5.0); HEMATOCRIT. 30.1 % (36.0-48.0); HEMOGLOBIN. 9.9 g/dL (12.0-16.0); LYMPHOCYTES % 21.3 % (20.0-50.0); MEAN CORPUSCULAR HEMOGLOBIN 29.2 pg (28.0-32.0); MEAN CORPUSCULAR VOLUME 89.3 fL (81.0-99.0); MEAN PLATELET VOLUME 7.1 fl (7.4-10.4); MONOCYTES % 6.1 % (2.0-8.0); NEUTROPHILS % 70.9 % (40.0-76.0); PLATELET 371 x1000/uL (130-400); RED BLOOD CELL COUNT 3.37 mill/uL (4.2-5.4); RED CELL DISTRIBUTION WIDTH 15.1 % (11.6-14.6)
[2020-05-24 07:47] LABS: CHLORIDE 102 mEq/L (98-107)
[2020-05-24 08:00] VITALS: BP 126/77
[2020-05-24] MEDS: ASPIRIN 81MG EC TABLET PO SCH (08:35)
[2020-05-24] MEDS: FAMOTIDINE 20MG TABLET PO SCH (08:35)
[2020-05-24] MEDS: ISOSORBIDE MONONITRATE 30MG TABLET SR 24HR PO SCH (08:36)
[2020-05-24] MEDS: ASCORBIC ACID 500 MG TABLET PO SCH ×2 (08:36→20:50)
[2020-05-24] MEDS: ZINC SULFATE 220 MG ( 50 ) CAPSULE PO SCH (08:36)
[2020-05-24] MEDS: SPIRONOLACTONE 25MG TABLET PO SCH ×2 (08:36→22:10)
[2020-05-24] MEDS: ENOXAPARIN 40MG/0.4ML SYR SUBCUT SCH ×2 (08:36→20:57)
[2020-05-24] MEDS: GUAIFENESIN/DM 600MG/30MG ER TAB 12HR PO SCH ×2 (08:36→20:57)
[2020-05-24] MEDS: MORPHINE SULFATE 2 MG/ML CPJ (NOT FOR IM USE) IV PRN ×2 (10:39→20:50)
[2020-05-24 12:00] VITALS: BP 133/91
[2020-05-24 16:00] VITALS: BP 127/92
[2020-05-24 20:00] VITALS: BP 138/92
[2020-05-25] VITALS: BP 134/95
[2020-05-25] MEDS: MORPHINE SULFATE 2 MG/ML CPJ (NOT FOR IM USE) IV PRN ×4 (03:00→20:32)
[2020-05-25 04:00] VITALS: BP 119/77
[2020-05-25] MEDS: CARVEDILOL 3.125 MG TABLET PO SCH ×2 (06:20→17:42)
[2020-05-25 08:00] VITALS: BP 127/80
[2020-05-25] MEDS: ENOXAPARIN 40MG/0.4ML SYR SUBCUT SCH ×2 (09:07→20:50)
[2020-05-25] MEDS: ZINC SULFATE 220 MG ( 50 ) CAPSULE PO SCH (09:08)
[2020-05-25] MEDS: ISOSORBIDE MONONITRATE 30MG TABLET SR 24HR PO SCH (09:08)
[2020-05-25] MEDS: ASCORBIC ACID 500 MG TABLET PO SCH ×2 (09:08→20:49)
[2020-05-25] MEDS: FAMOTIDINE 20MG TABLET PO SCH (09:08)
[2020-05-25] MEDS: SPIRONOLACTONE 25MG TABLET PO SCH ×2 (09:08→20:49)
[2020-05-25] MEDS: ASPIRIN 81MG EC TABLET PO SCH (09:08)
[2020-05-25] MEDS: GUAIFENESIN/DM 600MG/30MG ER TAB 12HR PO SCH ×2 (09:08→20:49)
[2020-05-25 12:00] VITALS: BP 117/81
[2020-05-25 16:00] VITALS: BP 112/80
[2020-05-25 20:00] VITALS: BP 117/76
[2020-05-26] VITALS: BP 112/68
[2020-05-26] MEDS: MORPHINE SULFATE 2 MG/ML CPJ (NOT FOR IM USE) IV PRN ×2 (02:35→04:02)
[2020-05-26 04:00] VITALS: BP 143/85
[2020-05-26] MEDS: CARVEDILOL 3.125 MG TABLET PO SCH (05:37)
[2020-05-26 08:00] VITALS: BP 137/88
[2020-05-26] MEDS: ASCORBIC ACID 500 MG TABLET PO SCH (10:08)
[2020-05-26] MEDS: ASPIRIN 81MG EC TABLET PO SCH (10:08)
[2020-05-26] MEDS: ISOSORBIDE MONONITRATE 30MG TABLET SR 24HR PO SCH (10:08)
[2020-05-26] MEDS: ENOXAPARIN 40MG/0.4ML SYR SUBCUT SCH (10:08)
[2020-05-26] MEDS: FAMOTIDINE 20MG TABLET PO SCH (10:09)
[2020-05-26] MEDS: SPIRONOLACTONE 25MG TABLET PO SCH (10:09)
[2020-05-26] MEDS: GUAIFENESIN/DM 600MG/30MG ER TAB 12HR PO SCH (10:09)
[2020-05-26] MEDS: ZINC SULFATE 220 MG ( 50 ) CAPSULE PO SCH (10:09)
[2020-05-26] MEDS: HYDROCODONE/ACETAMINOPHEN 10/325MG TABLET PO PRN (10:33)
[2020-05-26 12:00] VITALS: BP 121/88
[2020-05-26 12:53] VITALS: BP 121/88
== END 2020-05-26 13:30 | disposition home or self-care (01) | DRG 280 ==
LOC: ER 01:22 → 5EST 04:51 → EDBEDREQ 04:52 → SUPCPDRO 07:02 → ENRESERV 11:44 → 8WST 05-24 20:29
PROVIDERS: ADMIT Internal Medicine; ATTEND Internal Medicine
PROC: 4A023N7 Measurement of Cardiac Sampling and Pressure, Left Heart, Percutaneous Approach (ICD-10-PCS; principal; 2020-05-23)
PROC: B2111ZZ Fluoroscopy of Multiple Coronary Arteries using Low Osmolar Contrast (ICD-10-PCS; 2020-05-23)
PROC: B2151ZZ Fluoroscopy of Left Heart using Low Osmolar Contrast (ICD-10-PCS; 2020-05-23)
DX: I21.4 Non-ST elevation (NSTEMI) myocardial infarction (principal); I50.33 Acute on chronic diastolic (congestive) heart failure; E44.0 Moderate protein-calorie malnutrition; Z68.1 Body mass index [BMI] 19.9 or less, adult; R64 Cachexia; D63.8 Anemia in other chronic diseases classified elsewhere; F10.10 Alcohol abuse, uncomplicated; F17.210 Nicotine dependence, cigarettes, uncomplicated; J44.9 Chronic obstructive pulmonary disease, unspecified; I11.0 Hypertensive heart disease with heart failure; I25.10 Atherosclerotic heart disease of native coronary artery without angina pectoris; Z20.828 Contact with and (suspected) exposure to other viral communicable diseases; Z86.73 Personal history of transient ischemic attack (TIA), and cerebral infarction without residual deficits; Z88.0 Allergy status to penicillin; Z79.899 Other long term (current) drug therapy; Z79.891 Long term (current) use of opiate analgesic; Z79.2 Long term (current) use of antibiotics
CPT/HCPCS: 36415; 71045; 80048; 80053; 80061; 80320; 82550; 82553; 82607; 82746; 83036; 83540; 83550; 83735; 83880; 84100; 84484; 85025; 87426; 93005; 93306; 93458; 93970; 97162; 97166; 99285; C1769; C1887; C1893; J1644; J1650; J1940; J2060; J2250; J2270; J3010; J3490; Q9967; G0480

== ENCOUNTER 2020-08-12 09:32 | Emergency (ER) | payer MEDICARE, MEDICAID ==
[~2020-08-12] VITALS: Ht 154.9 cm; Wt 45.0 kg
[2020-08-12] MEDS ORDERED: ALBUTEROL (0.083%) 2.5MG/3ML NEB HHN STA (09:55)
[2020-08-12] MEDS ORDERED: SODIUM CHLORIDE 0.9% 250 ML IV ONE (10:00)
[2020-08-12 10:15] LABS: BASOPHILS % 0.1 % (0.0-2.0); EOSINOPHILS % 1.5 % (0.0-5.0); HEMATOCRIT. 34.2 % (36.0-48.0); HEMOGLOBIN. 10.9 g/dL (12.0-16.0); LYMPHOCYTES % 30.7 % (20.0-50.0); MEAN CORPUSCULAR HEMOGLOBIN 30.9 pg (28.0-32.0); MEAN CORPUSCULAR VOLUME 96.5 fL (81.0-99.0); MEAN PLATELET VOLUME 7.2 fl (7.4-10.4); NEUTROPHILS % 57.7 % (40.0-76.0); PLATELET 325 x1000/uL (130-400); RED BLOOD CELL COUNT 3.54 mill/uL (4.2-5.4); RED CELL DISTRIBUTION WIDTH 15.5 % (11.6-14.6)
[2020-08-12 10:24] LABS: CHLORIDE 98 mEq/L (98-107)
[2020-08-12 10:28] LABS: ETHANOL BLOOD 103 mg/dL
[2020-08-12] MEDS ORDERED: POTASSIUM CHLORIDE 20MEQ TABLET SR PO ONE (11:00)
[2020-08-12 12:00] VITALS: BP 110/54
[2020-08-12 12:07] LABS: *AMPHETAMINES SCREEN URINE NEGATIVE (NEGATIVE); *BARBITURATES SCREEN URINE NEGATIVE (NEGATIVE); *BENZODIAZEPINES SCREEN URINE NEGATIVE (NEGATIVE); *COCAINE SCREEN URINE NEGATIVE (NEGATIVE); METHADONE URINE SCREEN NEGATIVE (NEGATIVE)
[2020-08-12 12:08] LABS: CANNABINOID URINE SCREEN NEGATIVE (NEGATIVE); OPIATES URINE SCREEN PRESUMTIVE POSITIVE (NEGATIVE); PHENCYCLIDINE URINE SCREEN NEGATIVE (NEGATIVE)
== END 2020-08-12 13:31 | disposition home or self-care (01) ==
LOC: ER 09:32
DX: T40.1X1A Poisoning by heroin, accidental (unintentional), initial encounter (principal); J44.9 Chronic obstructive pulmonary disease, unspecified; E87.6 Hypokalemia; D64.9 Anemia, unspecified; F17.290 Nicotine dependence, other tobacco product, uncomplicated; R00.0 Tachycardia, unspecified; I11.0 Hypertensive heart disease with heart failure; I50.9 Heart failure, unspecified; F19.10 Other psychoactive substance abuse, uncomplicated; Z98.890 Other specified postprocedural states; Z79.899 Other long term (current) drug therapy; Z88.0 Allergy status to penicillin; Z88.8 Allergy status to other drugs, medicaments and biological substances; Y92.89 Other specified places as the place of occurrence of the external cause
CPT/HCPCS: 36415; 70450; 71045; 80053; 80305; 80320; 83880; 84484; 85025; 93005; 94640; 96360; 99285; 99406; J7030; G0480

== ENCOUNTER 2020-08-23 22:01 | Inpatient (IN) | payer MEDICARE, MEDICAID ==
[~2020-08-23] VITALS: Ht 160 cm; Wt 33.1 kg
[2020-08-23] MEDS ORDERED: AZITHROMYCIN 500 MG in DEXT 5% WATER 250 ML IV ONE (22:30)
[2020-08-23] MEDS ORDERED: SODIUM CHLORIDE 0.9% 1000ML BAG (SEPSIS BOLUS) IV ONE (22:30)
[2020-08-23] MEDS ORDERED: CEFTRIAXONE 1 G PREMIX 50 ML IV ONE (22:30)
[2020-08-23] MEDS ORDERED: IPRATROPIUM/ALBUTEROL 0.5-3(2.5)MG/3ML NEB HHN ONE (22:45)
[2020-08-23 23:04] LABS: BASOPHILS % 0.1 % (0.0-2.0); EOSINOPHILS % 0.8 % (0.0-5.0); HEMATOCRIT. 37.7 % (36.0-48.0); LYMPHOCYTES % 29.5 % (20.0-50.0); MEAN CORPUSCULAR HEMOGLOBIN 29.9 pg (28.0-32.0); MEAN CORPUSCULAR VOLUME 94.2 fL (81.0-99.0); MEAN PLATELET VOLUME 8.6 fl (7.4-10.4); MONOCYTES % 4.6 % (2.0-8.0); PLATELET 226 x1000/uL (130-400); RED CELL DISTRIBUTION WIDTH 14.9 % (11.6-14.6)
[2020-08-23 23:10] LABS: CLARITY URINE CLEAR (CLEAR); COLOR URINE YELLOW (YELLOW); KETONES URINE NEGATIVE (NEGATIVE); LEUKOCYTE ESTERASE URINE TRACE (NEGATIVE); NITRITE URINE NEGATIVE (NEGATIVE); OCCULT BLOOD URINE NEGATIVE (NEGATIVE); PH URINE 6.5 (4.5-8.0); PROTEIN URINE TRACE (NEGATIVE); SPECIFIC GRAVITY URINE 1.009 (1.005-1.030); UROBILINOGEN URINE 0.2 E.U./dL (0.2-1.0)
[2020-08-23 23:19] LABS: INR 0.9; PROTHROMBIN TIME 9.8 sec (9.6-11.0)
[2020-08-23 23:20] LABS: CHLORIDE 97 mEq/L (98-107)
[2020-08-23] MEDS ORDERED: MORPHINE SULFATE 4 MG/ML CPJ (NOT FOR IM USE) IV ONE (23:45)
[2020-08-24] MEDS ORDERED: IPRATROPIUM/ALBUTEROL 0.5-3(2.5)MG/3ML NEB HHN ONE (00:30)
[2020-08-24] MEDS ORDERED: IOHEXOL-350 100 ML BOTTLE ONE (03:34)
[2020-08-24] MEDS ORDERED: MORPHINE SULFATE 4 MG/ML CPJ (NOT FOR IM USE) IV ONE (04:00)
[2020-08-24] MEDS ORDERED: MORPHINE SULFATE 2 MG/ML CPJ (NOT FOR IM USE) IV PRN (08:15)
[2020-08-24 09:54] VITALS: BP 145/103
[2020-08-24 12:00] VITALS: BP 135/91
[2020-08-24] MEDS ORDERED: ACETAMINOPHEN 325MG TABLET PO PRN (12:45)
[2020-08-24] MEDS ORDERED: HYDROCODONE/ACETAMINOPHEN 5/325MG TABLET PO PRN (12:45)
[2020-08-24] MEDS ORDERED: CEFTRIAXONE 1 G PREMIX 50 ML IV SCH (12:45)
[2020-08-24] MEDS ORDERED: ONDANSETRON HCL 4MG/2ML INJ IV PRN (12:45)
[2020-08-24] MEDS: METHYLPREDNISOLONE SOD SUCC 40 MG/ML VIAL IV SCH ×2 (14:48→21:06)
[2020-08-24 16:00] VITALS: BP 141/91
[2020-08-24] MEDS: LORAZEPAM 2MG/ML CPJ IV PRN (17:12)
[2020-08-24] MEDS ORDERED: POTASSIUM CHLORIDE 20MEQ TABLET SR PO NR (18:30)
[2020-08-24 19:45] VITALS: BP 119/86
[2020-08-24] MEDS: CHLORDIAZEPOXIDE 25MG CAPSULE PO SCH (21:06)
[2020-08-24] MEDS ORDERED: CEFTRIAXONE 1,000 MG in DEXTROSE 5% WATER 50 ML IV SCH (23:00)
[2020-08-25] VITALS: BP 139/96
[2020-08-25 04:00] VITALS: BP 132/99
[2020-08-25] MEDS: LORAZEPAM 2MG/ML CPJ IV PRN ×3 (04:48→18:09)
[2020-08-25] MEDS: IPRATROPIUM/ALBUTEROL 0.5-3(2.5)MG/3ML NEB HHN SCH ×5 (05:12→21:25)
[2020-08-25] MEDS: METHYLPREDNISOLONE SOD SUCC 40 MG/ML VIAL IV SCH ×3 (06:13→21:33)
[2020-08-25] MEDS: CHLORDIAZEPOXIDE 25MG CAPSULE PO SCH ×3 (06:13→21:33)
[2020-08-25 08:00] VITALS: BP 122/89
[2020-08-25 08:33] LABS: HEMATOCRIT. 33.3 % (36.0-48.0); HEMOGLOBIN. 10.7 g/dL (12.0-16.0); LYMPHOCYTES % 11.9 % (20.0-50.0); MEAN CORPUSCULAR HEMOGLOBIN 29.9 pg (28.0-32.0); MEAN CORPUSCULAR VOLUME 92.9 fL (81.0-99.0); MEAN PLATELET VOLUME 9.2 fl (7.4-10.4); MONOCYTES % 1.6 % (2.0-8.0); NEUTROPHILS % 86.5 % (40.0-76.0); PLATELET 192 x1000/uL (130-400); RED BLOOD CELL COUNT 3.58 mill/uL (4.2-5.4)
[2020-08-25 09:06] LABS: CHLORIDE 97 mEq/L (98-107)
[2020-08-25] MEDS: THIAMINE HCL 100MG TABLET PO SCH (10:02)
[2020-08-25 12:00] VITALS: BP 120/80
[2020-08-25 16:00] VITALS: BP 115/82
[2020-08-25 20:00] VITALS: BP 128/92
[2020-08-25] MEDS: HYDROCODONE/ACETAMINOPHEN 10/325MG TABLET PO PRN (22:33)
[2020-08-25] MEDS ORDERED: LEVOFLOXACIN 500MG TABLET PO NR (23:00)
[2020-08-26] VITALS: BP 130/85
[2020-08-26] MEDS: LORAZEPAM 1MG TABLET PO PRN ×2 (00:12→08:26)
[2020-08-26] MEDS: HYDROCODONE/ACETAMINOPHEN 10/325MG TABLET PO PRN ×3 (03:09→18:44)
[2020-08-26] MEDS: IPRATROPIUM/ALBUTEROL 0.5-3(2.5)MG/3ML NEB HHN SCH ×6 (03:09→23:56)
[2020-08-26 04:00] VITALS: BP 139/85
[2020-08-26] MEDS: METHYLPREDNISOLONE SOD SUCC 40 MG/ML VIAL IV SCH ×3 (06:00→20:19)
[2020-08-26] MEDS: CHLORDIAZEPOXIDE 25MG CAPSULE PO SCH ×3 (06:05→20:19)
[2020-08-26 06:57] LABS: CHLORIDE 94 mEq/L (98-107)
[2020-08-26 07:14] LABS: CARCINO EMBRYONIC ANTIGEN 10.6 ng/ml
[2020-08-26 07:23] LABS: HEMATOCRIT. 37.5 % (36.0-48.0); HEMOGLOBIN. 12.2 g/dL (12.0-16.0); MEAN CORPUSCULAR HEMOGLOBIN 30.3 pg (28.0-32.0); MEAN CORPUSCULAR VOLUME 93.6 fL (81.0-99.0); RED BLOOD CELL COUNT 4.01 mill/uL (4.2-5.4); RED CELL DISTRIBUTION WIDTH 14.6 % (11.6-14.6)
[2020-08-26 07:25] LABS: HEPATITIS B SURFACE ANTIGEN NEGATIVE
[2020-08-26 07:55] LABS: HEPATITIS A AB IGM NEGATIVE (NEGATIVE)
[2020-08-26 08:00] VITALS: BP 110/69
[2020-08-26] MEDS: THIAMINE HCL 100MG TABLET PO SCH (08:26)
[2020-08-26] MEDS: LEVOFLOXACIN 250MG TABLET PO SCH (11:53)
[2020-08-26 12:00] VITALS: BP 116/74
[2020-08-26] MEDS: LORAZEPAM 2MG/ML CPJ IV PRN ×2 (14:12→20:20)
[2020-08-26 14:31] LABS: PLATELET ESTIMATE NORMAL
[2020-08-26 14:32] LABS: MEAN PLATELET VOLUME 9.8 fl (7.4-10.4)
[2020-08-26 14:33] LABS: PLATELET 221 x1000/uL (130-400)
[2020-08-26 16:00] VITALS: BP 105/70
[2020-08-26 20:00] VITALS: BP 111/69
[2020-08-26] MEDS: GUAIFENESIN 600MG ER TABLET PO SCH (20:19)
[2020-08-27] VITALS: BP 130/81
[2020-08-27] MEDS: LORAZEPAM 2MG/ML CPJ IV PRN ×2 (03:38→11:33)
[2020-08-27 04:00] VITALS: BP 108/83
[2020-08-27] MEDS: IPRATROPIUM/ALBUTEROL 0.5-3(2.5)MG/3ML NEB HHN SCH ×5 (04:21→20:51)
[2020-08-27] MEDS: CHLORDIAZEPOXIDE 25MG CAPSULE PO SCH ×3 (06:14→21:28)
[2020-08-27] MEDS: METHYLPREDNISOLONE SOD SUCC 40 MG/ML VIAL IV SCH ×2 (06:14→14:00)
[2020-08-27] MEDS: HYDROCODONE/ACETAMINOPHEN 10/325MG TABLET PO PRN ×3 (07:59→19:56)
[2020-08-27 08:00] VITALS: BP 156/77
[2020-08-27] MEDS: GUAIFENESIN 600MG ER TABLET PO SCH ×2 (08:00→21:28)
[2020-08-27] MEDS: THIAMINE HCL 100MG TABLET PO SCH (08:00)
[2020-08-27] MEDS: MULTIVITAMINS,THER W-MINERALS TABLET PO SCH (08:00)
[2020-08-27 12:00] VITALS: BP 115/74
[2020-08-27] MEDS: LEVOFLOXACIN 250MG TABLET PO SCH (12:05)
[2020-08-27] MEDS ORDERED: THIA100T72 GT (15:53)
[2020-08-27] MEDS ORDERED: P20 MT (15:53)
[2020-08-27] MEDS ORDERED: FLUT1DIS3 INH (15:53)
[2020-08-27] MEDS ORDERED: ALBU18HF2 IH (15:53)
[2020-08-27] MEDS ORDERED: CHLO25CA10 MT (15:53)
[2020-08-27] MEDS ORDERED: IPRA3AMP9 NEB (15:53)
[2020-08-27 16:00] VITALS: BP 131/83
[2020-08-27] MEDS: LORAZEPAM 1MG TABLET PO PRN (19:03)
[2020-08-27 20:33] VITALS: BP 124/74
[2020-08-28] MEDS: IPRATROPIUM/ALBUTEROL 0.5-3(2.5)MG/3ML NEB HHN SCH ×3 (00:26→09:25)
[2020-08-28 00:57] VITALS: BP 125/83
[2020-08-28] MEDS: LORAZEPAM 1MG TABLET PO PRN (03:48)
[2020-08-28 04:00] VITALS: BP 123/79
[2020-08-28] MEDS: HYDROCODONE/ACETAMINOPHEN 10/325MG TABLET PO PRN ×2 (04:29→08:55)
[2020-08-28 05:07] VITALS: BP 116/72
[2020-08-28] MEDS: CHLORDIAZEPOXIDE 25MG CAPSULE PO SCH (06:42)
[2020-08-28 08:00] VITALS: BP 109/71
[2020-08-28] MEDS: MULTIVITAMINS,THER W-MINERALS TABLET PO SCH (08:53)
[2020-08-28] MEDS: GUAIFENESIN 600MG ER TABLET PO SCH (08:55)
[2020-08-28] MEDS: THIAMINE HCL 100MG TABLET PO SCH (08:55)
[2020-08-28] MEDS ORDERED: PREDNISONE 20MG TABLET PO SCH (09:00)
[2020-08-28 10:18] VITALS: BP 109/71
[2020-09-01 19:09] LABS: OVA & PARASITE EXAM Final report (.)
== END 2020-08-28 12:15 | disposition home or self-care (01) | DRG 871 ==
LOC: ER 22:01 → 7WST 08-24 04:02 → EDBEDREQ 08-24 04:09 → EDBEDREQTM 08-24 04:09 → EDBEDREQDT 08-24 04:09 → EDBEDREQSVC 08-24 04:51 → EDBEDREQTM 08-24 04:51 → ENRESERV 08-24 08:20 → 5WST 08-24 23:40
PROVIDERS: ADMIT Internal Medicine; ATTEND Internal Medicine
DX: A41.9 Sepsis, unspecified organism (principal); J96.20 Acute and chronic respiratory failure, unspecified whether with hypoxia or hypercapnia; N39.0 Urinary tract infection, site not specified; E87.2 Acidosis; F10.239 Alcohol dependence with withdrawal, unspecified; E87.1 Hypo-osmolality and hyponatremia; I50.30 Unspecified diastolic (congestive) heart failure; J44.1 Chronic obstructive pulmonary disease with (acute) exacerbation; D64.9 Anemia, unspecified; K86.9 Disease of pancreas, unspecified; E87.6 Hypokalemia; E87.8 Other disorders of electrolyte and fluid balance, not elsewhere classified; F11.90 Opioid use, unspecified, uncomplicated; I11.0 Hypertensive heart disease with heart failure; G40.909 Epilepsy, unspecified, not intractable, without status epilepticus; I50.9 Heart failure, unspecified; F15.90 Other stimulant use, unspecified, uncomplicated; B19.20 Unspecified viral hepatitis C without hepatic coma; K76.0 Fatty (change of) liver, not elsewhere classified; Z82.49 Family history of ischemic heart disease and other diseases of the circulatory system; Z99.81 Dependence on supplemental oxygen; Z86.73 Personal history of transient ischemic attack (TIA), and cerebral infarction without residual deficits; Z88.0 Allergy status to penicillin; Z88.8 Allergy status to other drugs, medicaments and biological substances; Z79.51 Long term (current) use of inhaled steroids; Z79.899 Other long term (current) drug therapy; Z20.822 Contact with and (suspected) exposure to COVID-19
CPT/HCPCS: 36415; 71045; 71275; 74181; 80048; 80053; 81003; 82105; 82378; 83605; 84145; 84484; 85025; 85379; 86301; 86705; 86709; 86803; 87015; 87045; 87077; 87177; 87186; 87209; 87340; 87426; 87427; 89055; 93005; 94640; 97162; 99291; C1893; J0456; J0696; J2060; J2270; J2405; J2920; J7030; J7060; J7512; Q9967; U0003

== ENCOUNTER 2020-08-29 18:06 | Inpatient (IN) | payer MEDICARE, MEDICAID ==
[~2020-08-29] VITALS: Ht 152.4 cm; Wt 39.5 kg
[~2020-08-29 18:06] MED LIST changes: +FLUT1DIS3 INH; +IPRA3AMP9 NEB; -LEVO500T2 PO; +P20 MT; -P50 MT
[2020-08-29 19:08] LABS: BASOPHILS % 0.1 % (0.0-2.0); HEMATOCRIT. 36.4 % (36.0-48.0); HEMOGLOBIN. 11.9 g/dL (12.0-16.0); LYMPHOCYTES % 10.5 % (20.0-50.0); MEAN CORPUSCULAR HEMOGLOBIN 31.3 pg (28.0-32.0); MEAN CORPUSCULAR VOLUME 95.5 fL (81.0-99.0); MEAN PLATELET VOLUME 8.5 fl (7.4-10.4); MONOCYTES % 6.8 % (2.0-8.0); NEUTROPHILS % 82.6 % (40.0-76.0); PLATELET 284 x1000/uL (130-400); RED BLOOD CELL COUNT 3.81 mill/uL (4.2-5.4); RED CELL DISTRIBUTION WIDTH 15.1 % (11.6-14.6)
[2020-08-29] MEDS ORDERED: FOLIC ACID 1 MG, THIAMINE HCL 100 MG, MVI, ADULT NO.1 10 ML in DEXTROSE 5% WATER 1,000 ML IV ONE (19:15)
[2020-08-29] MEDS ORDERED: SODIUM CHLORIDE 0.9% 500 ML IV ONE (19:15)
[2020-08-29 19:17] LABS: INR 0.9; PROTHROMBIN TIME 9.9 sec (9.6-11.0)
[2020-08-29 19:20] LABS: CHLORIDE 110 mEq/L (98-107)
[2020-08-29] MEDS ORDERED: FOLIC ACID 1 MG, THIAMINE HCL 100 MG in DEXTROSE 5% WATER 1,000 ML IV ONE (19:30)
[2020-08-29] MEDS ORDERED: MULTIVITAMINS,THER W-MINERALS TABLET PO NR (19:30)
[2020-08-29] MEDS ORDERED: ASPIRIN 81MG TABLET PO NR (21:00)
[2020-08-29] MEDS ORDERED: PANTOPRAZOLE SODIUM 40 MG/VIAL IV SCH (21:00)
[2020-08-29] MEDS ORDERED: IPRATROPIUM BROMIDE (0.02%) 0.5MG/2.5ML NEB HHN NR (21:00)
[2020-08-29 21:01] LABS: CLARITY URINE CLEAR (CLEAR); COLOR URINE YELLOW (YELLOW); KETONES URINE NEGATIVE (NEGATIVE); LEUKOCYTE ESTERASE URINE NEGATIVE (NEGATIVE); NITRITE URINE NEGATIVE (NEGATIVE); OCCULT BLOOD URINE NEGATIVE (NEGATIVE); PH URINE 6.5 (4.5-8.0); PROTEIN URINE NEGATIVE (NEGATIVE); SPECIFIC GRAVITY URINE 1.012 (1.005-1.030); UROBILINOGEN URINE 0.2 E.U./dL (0.2-1.0)
[2020-08-29] MEDS: ALBUTEROL (0.083%) 2.5MG/3ML NEB HHN SCH ×3 (21:05→22:05)
[2020-08-29 21:38] LABS: *AMPHETAMINES SCREEN URINE NEGATIVE (NEGATIVE); *BARBITURATES SCREEN URINE NEGATIVE (NEGATIVE); *BENZODIAZEPINES SCREEN URINE PRESUMTIVE POSITIVE (NEGATIVE); *COCAINE SCREEN URINE NEGATIVE (NEGATIVE); METHADONE URINE SCREEN NEGATIVE (NEGATIVE); OPIATES URINE SCREEN PRESUMTIVE POSITIVE (NEGATIVE); PHENCYCLIDINE URINE SCREEN NEGATIVE (NEGATIVE)
[2020-08-29 21:39] LABS: CANNABINOID URINE SCREEN NEGATIVE (NEGATIVE)
[2020-08-29] MEDS ORDERED: ACETAMINOPHEN 325MG TABLET PO PRN (23:00)
[2020-08-29] MEDS ORDERED: IPRATROPIUM/ALBUTEROL 0.5-3(2.5)MG/3ML NEB HHN PRN (23:00)
[2020-08-29] MEDS ORDERED: DIPHENHYDRAMINE 50MG/ML VIAL IV PRN (23:00)
[2020-08-29] MEDS ORDERED: CLONIDINE 0.1MG TABLET PO PRN (23:00)
[2020-08-29] MEDS ORDERED: MAGNESIUM/ALUMINUM HYDROXIDE/SIMETHICONE 30ML UDC PO PRN (23:00)
[2020-08-29] MEDS ORDERED: METOCLOPRAMIDE HCL 10MG/2ML VIAL IV PRN (23:00)
[2020-08-30] MEDS: ACETAMINOPHEN 325MG TABLET PO PRN ×2 (00:36→07:21)
[2020-08-30] MEDS: KETOROLAC 15MG/ML VIAL IV PRN ×2 (03:50→14:30)
[2020-08-30] MEDS: SODIUM CHLORIDE 0.9% INJ 3ML FLUSH IVF SCH ×3 (05:41→23:25)
[2020-08-30] MEDS ORDERED: PANTOPRAZOLE 40MG DR TABLET PO SCH (07:50)
[2020-08-30] MEDS: LORAZEPAM 2MG/ML CPJ IV PRN ×2 (08:23→13:11)
[2020-08-30] MEDS: CHLORDIAZEPOXIDE 25MG CAPSULE PO PRN (08:24)
[2020-08-30 10:38] VITALS: BP 132/84
[2020-08-30 12:00] VITALS: BP 140/89
[2020-08-30] MEDS: THIAMINE HCL 100MG TABLET PO SCH (14:32)
[2020-08-30 16:00] VITALS: BP 145/89
[2020-08-30] MEDS: ZOLPIDEM TARTRATE 5MG TABLET PO PRN (18:39)
[2020-08-30 20:00] VITALS: BP 120/74
[2020-08-31] VITALS: BP 114/81
[2020-08-31] MEDS: KETOROLAC 15MG/ML VIAL IV PRN ×3 (00:34→15:05)
[2020-08-31] MEDS: LORAZEPAM 2MG/ML CPJ IV PRN ×2 (01:40→11:28)
[2020-08-31 04:00] VITALS: BP 124/70
[2020-08-31] MEDS: SODIUM CHLORIDE 0.9% INJ 3ML FLUSH IVF SCH ×2 (05:37→20:17)
[2020-08-31 08:00] VITALS: BP 134/83
[2020-08-31] MEDS: THIAMINE HCL 100MG TABLET PO SCH (09:37)
[2020-08-31 12:00] VITALS: BP 128/87
[2020-08-31 16:00] VITALS: BP 141/90
[2020-08-31 20:00] VITALS: BP 127/50
[2020-08-31] MEDS: LOPERAMIDE HCL 2MG CAPSULE PO PRN (20:17)
[2020-08-31] MEDS: CHLORDIAZEPOXIDE 25MG CAPSULE PO PRN (20:17)
[2020-09-01] VITALS: BP 117/76
[2020-09-01] MEDS: LORAZEPAM 2MG/ML CPJ IV PRN ×3 (03:27→14:16)
[2020-09-01 04:00] VITALS: BP 140/86
[2020-09-01] MEDS: KETOROLAC 15MG/ML VIAL IV PRN ×2 (04:34→12:10)
[2020-09-01] MEDS: SODIUM CHLORIDE 0.9% INJ 3ML FLUSH IVF SCH ×3 (06:10→20:37)
[2020-09-01] MEDS: CHLORDIAZEPOXIDE 25MG CAPSULE PO PRN ×2 (06:56→17:14)
[2020-09-01 07:12] LABS: BASOPHILS % 0.1 % (0.0-2.0); EOSINOPHILS % 1.7 % (0.0-5.0); HEMATOCRIT. 32.3 % (36.0-48.0); HEMOGLOBIN. 10.4 g/dL (12.0-16.0); LYMPHOCYTES % 26.6 % (20.0-50.0); MEAN CORPUSCULAR HEMOGLOBIN 30.2 pg (28.0-32.0); MEAN CORPUSCULAR VOLUME 93.9 fL (81.0-99.0); MEAN PLATELET VOLUME 7.4 fl (7.4-10.4); MONOCYTES % 14.4 % (2.0-8.0); NEUTROPHILS % 57.2 % (40.0-76.0); PLATELET 296 x1000/uL (130-400); RED BLOOD CELL COUNT 3.44 mill/uL (4.2-5.4); RED CELL DISTRIBUTION WIDTH 14.8 % (11.6-14.6)
[2020-09-01 07:51] LABS: CHLORIDE 107 mEq/L (98-107)
[2020-09-01 08:00] VITALS: BP 137/87
[2020-09-01] MEDS: THIAMINE HCL 100MG TABLET PO SCH (08:04)
[2020-09-01] MEDS: LOPERAMIDE HCL 2MG CAPSULE PO PRN (08:04)
[2020-09-01 08:08] LABS: PHOSPHORUS 4.1 mg/dL (2.5-4.9)
[2020-09-01 12:00] VITALS: BP 117/74
[2020-09-01 16:00] VITALS: BP 109/66
[2020-09-01] MEDS ORDERED: LOPERAMIDE HCL 2MG CAPSULE PO PRN (17:45)
[2020-09-01 20:00] VITALS: BP 117/75
[2020-09-01] MEDS: ALPRAZOLAM 0.5 MG TABLET PO PRN (21:04)
[2020-09-01] MEDS: ACETAMINOPHEN 325MG TABLET PO PRN (21:20)
[2020-09-02] VITALS (7 sets, daily range): BP systolic 104–125; BP diastolic 66–77
[2020-09-02] MEDS: ALPRAZOLAM 0.5 MG TABLET PO PRN ×3 (05:10→21:12)
[2020-09-02] MEDS: SODIUM CHLORIDE 0.9% INJ 3ML FLUSH IVF SCH ×3 (05:10→21:12)
[2020-09-02] MEDS: THIAMINE HCL 100MG TABLET PO SCH (08:06)
[2020-09-02] MEDS: FAMOTIDINE 20MG TABLET PO SCH (08:06)
[2020-09-02] MEDS: FOLIC ACID 1MG TABLET PO SCH (14:21)
[2020-09-02] MEDS: ZOLPIDEM TARTRATE 5MG TABLET PO PRN (19:33)
[2020-09-03] VITALS (7 sets, daily range): BP systolic 104–127; BP diastolic 69–77
[2020-09-03] MEDS: SODIUM CHLORIDE 0.9% INJ 3ML FLUSH IVF SCH ×3 (05:12→20:13)
[2020-09-03] MEDS: ALPRAZOLAM 0.5 MG TABLET PO PRN ×2 (05:12→13:26)
[2020-09-03] MEDS: THIAMINE HCL 100MG TABLET PO SCH (08:13)
[2020-09-03] MEDS: FAMOTIDINE 20MG TABLET PO SCH (08:13)
[2020-09-03] MEDS: FOLIC ACID 1MG TABLET PO SCH (08:14)
[2020-09-03] MEDS: ACETAMINOPHEN 325MG TABLET PO PRN (10:12)
[2020-09-03] MEDS: ZOLPIDEM TARTRATE 5MG TABLET PO PRN (20:12)
== END 2020-09-03 23:45 | DRG 206 ==
LOC: ER 18:06 → 5WST 22:12 → EDBEDREQSVC 22:15 → EDBEDREQTM 22:15 → EDBEDREQ 22:15 → CANBEDREQ 08-30 00:38 → EDBEDREQ 08-30 00:40 → ENRESERV 08-30 08:33 → 5WST 09-01 05:07
PROVIDERS: ADMIT Internal Medicine; ATTEND Internal Medicine
DX: M94.0 Chondrocostal junction syndrome [Tietze] (principal); E87.2 Acidosis; F19.20 Other psychoactive substance dependence, uncomplicated; I50.30 Unspecified diastolic (congestive) heart failure; F10.239 Alcohol dependence with withdrawal, unspecified; J44.9 Chronic obstructive pulmonary disease, unspecified; F32.9 Major depressive disorder, single episode, unspecified; I11.0 Hypertensive heart disease with heart failure; M85.80 Other specified disorders of bone density and structure, unspecified site; R62.7 Adult failure to thrive; D64.9 Anemia, unspecified; R26.9 Unspecified abnormalities of gait and mobility; F41.1 Generalized anxiety disorder; G62.1 Alcoholic polyneuropathy; Z20.822 Contact with and (suspected) exposure to COVID-19; G89.4 Chronic pain syndrome; Z87.891 Personal history of nicotine dependence; Z82.49 Family history of ischemic heart disease and other diseases of the circulatory system; Z86.73 Personal history of transient ischemic attack (TIA), and cerebral infarction without residual deficits; Z99.81 Dependence on supplemental oxygen; Z91.81 History of falling; Z88.0 Allergy status to penicillin; Z88.8 Allergy status to other drugs, medicaments and biological substances; Z79.899 Other long term (current) drug therapy; Z79.1 Long term (current) use of non-steroidal anti-inflammatories (NSAID)
CPT/HCPCS: 36415; 71045; 73521; 80053; 80305; 80320; 81003; 83605; 83735; 84100; 84145; 84484; 85025; 87426; 93005; 94640; 97110; 97116; 97162; 97166; 97530; 99285; C1893; C9113; J1885; J2060; J3411; J3490; J7040; J7070; G0480

== ENCOUNTER 2020-09-03 23:56 | Inpatient (IN) | payer MEDICARE, MEDICAID ==
[~2020-09-03] VITALS: Ht 152.4 cm; Wt 40.4 kg
[2020-09-04] VITALS: BP 121/76
[2020-09-04] MEDS ORDERED: IPRATROPIUM/ALBUTEROL 0.5-3(2.5)MG/3ML NEB HHN PRN (01:30)
[2020-09-04] MEDS ORDERED: CLONIDINE 0.1MG TABLET PO PRN (01:30)
[2020-09-04] MEDS ORDERED: MAGNESIUM/ALUMINUM HYDROXIDE/SIMETHICONE 30ML UDC PO PRN (01:30)
[2020-09-04] MEDS ORDERED: DIPHENHYDRAMINE 50MG/ML VIAL IV PRN (01:30)
[2020-09-04] MEDS ORDERED: LOPERAMIDE HCL 2MG CAPSULE PO PRN (01:30)
[2020-09-04] MEDS ORDERED: ACETAMINOPHEN 325MG TABLET PO PRN (01:30)
[2020-09-04] MEDS ORDERED: METOCLOPRAMIDE HCL 10MG/2ML VIAL IV PRN (06:00)
[2020-09-04] MEDS: SODIUM CHLORIDE 0.9% INJ 3ML FLUSH IVF SCH ×3 (06:00→21:12)
[2020-09-04 07:04] LABS: CHLORIDE 102 mEq/L (98-107)
[2020-09-04 07:06] LABS: BASOPHILS % 0.1 % (0.0-2.0); EOSINOPHILS % 1.2 % (0.0-5.0); HEMATOCRIT. 27.7 % (36.0-48.0); HEMOGLOBIN. 9.2 g/dL (12.0-16.0); LYMPHOCYTES % 31.6 % (20.0-50.0); MEAN CORPUSCULAR HEMOGLOBIN 30.9 pg (28.0-32.0); MEAN CORPUSCULAR VOLUME 93.3 fL (81.0-99.0); MEAN PLATELET VOLUME 8.1 fl (7.4-10.4); MONOCYTES % 9.4 % (2.0-8.0); NEUTROPHILS % 57.7 % (40.0-76.0); PLATELET 281 x1000/uL (130-400); RED BLOOD CELL COUNT 2.97 mill/uL (4.2-5.4); RED CELL DISTRIBUTION WIDTH 14.3 % (11.6-14.6)
[2020-09-04 07:55] VITALS: BP 110/67
[2020-09-04] MEDS: THIAMINE HCL 100MG TABLET PO SCH (10:08)
[2020-09-04] MEDS: FOLIC ACID 1MG TABLET PO SCH (10:08)
[2020-09-04] MEDS: FAMOTIDINE 20MG/2ML VIAL IV SCH (10:08)
[2020-09-04] MEDS: ALPRAZOLAM 0.5 MG TABLET PO PRN ×2 (10:14→18:06)
[2020-09-04 20:00] VITALS: BP 116/69
[2020-09-04] MEDS: ACETAMINOPHEN 325MG TABLET PO PRN (21:10)
[2020-09-05] MEDS: ACETAMINOPHEN 325MG TABLET PO PRN (06:26)
[2020-09-05] MEDS: SODIUM CHLORIDE 0.9% INJ 3ML FLUSH IVF SCH ×3 (06:28→20:19)
[2020-09-05 07:20] LABS: BASOPHILS % 0.3 % (0.0-2.0); EOSINOPHILS % 1.4 % (0.0-5.0); HEMATOCRIT. 28.1 % (36.0-48.0); HEMOGLOBIN. 9.2 g/dL (12.0-16.0); LYMPHOCYTES % 26.6 % (20.0-50.0); MEAN CORPUSCULAR HEMOGLOBIN 30.9 pg (28.0-32.0); MEAN CORPUSCULAR VOLUME 94.2 fL (81.0-99.0); MONOCYTES % 9.2 % (2.0-8.0); NEUTROPHILS % 62.5 % (40.0-76.0); PLATELET 286 x1000/uL (130-400); RED BLOOD CELL COUNT 2.98 mill/uL (4.2-5.4); RED CELL DISTRIBUTION WIDTH 14.3 % (11.6-14.6)
[2020-09-05 07:22] LABS: CHLORIDE 101 mEq/L (98-107)
[2020-09-05 07:35] LABS: PHOSPHORUS 4.6 mg/dL (2.5-4.9)
[2020-09-05 07:36] LABS: TOTAL IRON BINDING CAPACITY 354 ug/dL (250-450)
[2020-09-05 07:38] LABS: FERRITIN 80 ng/mL (10-291)
[2020-09-05 07:49] LABS: VITAMIN B12 SERUM 442 pg/mL (211-911)
[2020-09-05 07:51] LABS: FOLIC ACID (FOLATE) SERUM > 20.00 ng/mL (>5.38)
[2020-09-05 08:00] VITALS: BP 106/67
[2020-09-05 08:27] LABS: CLARITY URINE CLEAR (CLEAR); COLOR URINE YELLOW (YELLOW); KETONES URINE NEGATIVE (NEGATIVE); LEUKOCYTE ESTERASE URINE TRACE (NEGATIVE); NITRITE URINE NEGATIVE (NEGATIVE); OCCULT BLOOD URINE NEGATIVE (NEGATIVE); PROTEIN URINE NEGATIVE (NEGATIVE); SPECIFIC GRAVITY URINE 1.018 (1.005-1.030); UROBILINOGEN URINE 0.2 E.U./dL (0.2-1.0)
[2020-09-05] MEDS: THIAMINE HCL 100MG TABLET PO SCH (09:08)
[2020-09-05] MEDS: FAMOTIDINE 20MG/2ML VIAL IV SCH (09:08)
[2020-09-05] MEDS: FOLIC ACID 1MG TABLET PO SCH (09:08)
[2020-09-05] MEDS: TRAMADOL 50MG TABLET PO PRN ×2 (10:09→17:33)
[2020-09-05] MEDS: NEOMYCIN/BACITRACIN/POLYMYXIN OINT 14GM TOP SCH (20:19)
[2020-09-06] MEDS: SODIUM CHLORIDE 0.9% INJ 3ML FLUSH IVF SCH ×2 (06:53→13:37)
[2020-09-06] MEDS: TRAMADOL 50MG TABLET PO PRN (06:53)
[2020-09-06 07:54] VITALS: BP 94/45
[2020-09-06] MEDS: FOLIC ACID 1MG TABLET PO SCH (08:36)
[2020-09-06] MEDS: CYANOCOBALAMIN 1000MCG/ML VIAL IM SCH (08:37)
[2020-09-06] MEDS: THIAMINE HCL 100MG TABLET PO SCH (08:37)
[2020-09-06] MEDS: FAMOTIDINE 20MG/2ML VIAL IV SCH (08:37)
[2020-09-06] MEDS: NEOMYCIN/BACITRACIN/POLYMYXIN OINT 14GM TOP SCH ×2 (08:39→20:02)
[2020-09-06] MEDS: ACETAMINOPHEN 325MG TABLET PO PRN (16:56)
[2020-09-06] MEDS ORDERED: METOCLOPRAMIDE HCL 10MG TABLET PO PRN (18:00)
[2020-09-06] MEDS ORDERED: DIPHENHYDRAMINE 25MG CAPSULE PO PRN (18:00)
[2020-09-06 20:00] VITALS: BP 107/65
[2020-09-06] MEDS: ZOLPIDEM TARTRATE 5MG TABLET PO PRN (21:15)
[2020-09-07 06:48] LABS: CHLORIDE 100 mEq/L (98-107)
[2020-09-07 06:56] LABS: BASOPHILS % 0.3 % (0.0-2.0); EOSINOPHILS % 1.5 % (0.0-5.0); HEMATOCRIT. 27.6 % (36.0-48.0); HEMOGLOBIN. 8.9 g/dL (12.0-16.0); LYMPHOCYTES % 37.6 % (20.0-50.0); MEAN CORPUSCULAR HEMOGLOBIN 30.5 pg (28.0-32.0); MEAN CORPUSCULAR VOLUME 94.9 fL (81.0-99.0); MEAN PLATELET VOLUME 8.3 fl (7.4-10.4); MONOCYTES % 12.2 % (2.0-8.0); NEUTROPHILS % 48.4 % (40.0-76.0); PLATELET 251 x1000/uL (130-400); RED CELL DISTRIBUTION WIDTH 14.4 % (11.6-14.6)
[2020-09-07 07:44] VITALS: BP 118/76
[2020-09-07] MEDS: THIAMINE HCL 100MG TABLET PO SCH (08:17)
[2020-09-07] MEDS: FAMOTIDINE 20MG TABLET PO SCH (08:17)
[2020-09-07] MEDS: FOLIC ACID 1MG TABLET PO SCH (08:17)
[2020-09-07] MEDS: CYANOCOBALAMIN 1000MCG/ML VIAL IM SCH (08:17)
[2020-09-07] MEDS: NEOMYCIN/BACITRACIN/POLYMYXIN OINT 14GM TOP SCH ×2 (08:21→21:00)
[2020-09-07 12:02] VITALS: BP 116/66
[2020-09-07] MEDS: TRAMADOL 50MG TABLET PO PRN (12:03)
[2020-09-07 13:25] LABS: HEPATITIS B SURFACE ANTIGEN NEGATIVE
[2020-09-07 13:54] LABS: HEPATITIS A AB IGM NEGATIVE (NEGATIVE)
[2020-09-07 14:12] LABS: CLARITY URINE CLEAR (CLEAR); COLOR URINE YELLOW (YELLOW); KETONES URINE NEGATIVE (NEGATIVE); LEUKOCYTE ESTERASE URINE NEGATIVE (NEGATIVE); NITRITE URINE NEGATIVE (NEGATIVE); OCCULT BLOOD URINE NEGATIVE (NEGATIVE); PROTEIN URINE NEGATIVE (NEGATIVE); SPECIFIC GRAVITY URINE 1.014 (1.005-1.030); UROBILINOGEN URINE 0.2 E.U./dL (0.2-1.0)
[2020-09-07 20:00] VITALS: BP 122/70
[2020-09-07] MEDS: ZOLPIDEM TARTRATE 5MG TABLET PO PRN (21:00)
[2020-09-08 07:49] VITALS: BP 102/60
[2020-09-08] MEDS: FAMOTIDINE 20MG TABLET PO SCH (08:30)
[2020-09-08] MEDS: FOLIC ACID 1MG TABLET PO SCH (08:30)
[2020-09-08] MEDS: THIAMINE HCL 100MG TABLET PO SCH (08:31)
[2020-09-08] MEDS: CYANOCOBALAMIN 1000MCG/ML VIAL IM SCH (08:31)
[2020-09-08] MEDS: NEOMYCIN/BACITRACIN/POLYMYXIN OINT 14GM TOP SCH ×2 (08:35→21:17)
[2020-09-08] MEDS: TRAMADOL 50MG TABLET PO PRN (18:25)
[2020-09-08 18:27] VITALS: BP 104/60
[2020-09-08 20:00] VITALS: BP 102/67
[2020-09-08] MEDS: ZOLPIDEM TARTRATE 5MG TABLET PO PRN (21:17)
[2020-09-09 07:33] VITALS: BP 98/65
[2020-09-09 07:46] LABS: AMYLASE 144 IU/L (25-115)
[2020-09-09] MEDS: FOLIC ACID 1MG TABLET PO SCH (08:50)
[2020-09-09] MEDS: FAMOTIDINE 20MG TABLET PO SCH (08:50)
[2020-09-09] MEDS: CYANOCOBALAMIN 1000MCG/ML VIAL IM SCH (08:51)
[2020-09-09] MEDS: NEOMYCIN/BACITRACIN/POLYMYXIN OINT 14GM TOP SCH ×2 (08:51→20:38)
[2020-09-09] MEDS: THIAMINE HCL 100MG TABLET PO SCH (08:51)
[2020-09-09] MEDS ORDERED: ISOS30TA91 MT (12:58)
[2020-09-09] MEDS: ALPRAZOLAM 0.5 MG TABLET PO PRN (13:21)
[2020-09-09] MEDS ORDERED: ZOLPIDEM TARTRATE 5MG TABLET PO PRN (19:00)
[2020-09-09 19:06] LABS: OVA & PARASITE EXAM Final report (.)
[2020-09-09] MEDS ORDERED: ACETAMINOPHEN 325MG TABLET PO PRN (19:45)
[2020-09-09] MEDS ORDERED: DIPHENHYDRAMINE 25MG CAPSULE PO PRN (19:45)
[2020-09-09 20:00] VITALS: BP 117/77
[2020-09-09] MEDS ORDERED: METOCLOPRAMIDE HCL 10MG TABLET PO PRN (20:00)
[2020-09-09] MEDS: ZOLPIDEM TARTRATE 5MG TABLET PO PRN (20:39)
[2020-09-09] MEDS: TRAMADOL 50MG TABLET PO PRN (20:40)
[2020-09-10 07:59] VITALS: BP 87/50
[2020-09-10] MEDS: THIAMINE HCL 100MG TABLET PO SCH (08:28)
[2020-09-10] MEDS: FAMOTIDINE 20MG TABLET PO SCH (08:28)
[2020-09-10] MEDS: FOLIC ACID 1MG TABLET PO SCH (08:28)
[2020-09-10] MEDS: CYANOCOBALAMIN 1000MCG/ML VIAL IM SCH (08:28)
[2020-09-10] MEDS: ACETAMINOPHEN 325MG TABLET PO PRN (08:29)
[2020-09-10] MEDS: NEOMYCIN/BACITRACIN/POLYMYXIN OINT 14GM TOP SCH (08:29)
[2020-09-10] MEDS: TRAMADOL 50MG TABLET PO PRN (10:12)
[2020-09-10 15:07] LABS: 25-HYDROXY VITAMIN D3 28 ng/mL (.)
[2020-09-10 18:15] VITALS: BP 108/72
[2020-09-10 18:16] VITALS: BP_SYST 107; BP_SYST 112; BP_DIAS 66; BP_DIAS 68
[2020-09-10 20:00] VITALS: BP 100/70
[2020-09-10] MEDS: ZOLPIDEM TARTRATE 5MG TABLET PO PRN (21:04)
[2020-09-11 06:36] LABS: BASOPHILS % 0.5 % (0.0-2.0); EOSINOPHILS % 2.8 % (0.0-5.0); HEMOGLOBIN. 8.7 g/dL (12.0-16.0); LYMPHOCYTES % 45.1 % (20.0-50.0); MEAN CORPUSCULAR HEMOGLOBIN 30.6 pg (28.0-32.0); MEAN CORPUSCULAR VOLUME 94.6 fL (81.0-99.0); MEAN PLATELET VOLUME 8.2 fl (7.4-10.4); MONOCYTES % 12.1 % (2.0-8.0); NEUTROPHILS % 39.5 % (40.0-76.0); PLATELET 259 x1000/uL (130-400); RED BLOOD CELL COUNT 2.85 mill/uL (4.2-5.4); RED CELL DISTRIBUTION WIDTH 14.5 % (11.6-14.6)
[2020-09-11 07:05] LABS: CHLORIDE 101 mEq/L (98-107)
[2020-09-11 07:25] LABS: AMYLASE 161 IU/L (25-115)
[2020-09-11 08:00] VITALS: BP 97/57
[2020-09-11] MEDS: THIAMINE HCL 100MG TABLET PO SCH (08:43)
[2020-09-11] MEDS: FAMOTIDINE 20MG TABLET PO SCH (08:43)
[2020-09-11] MEDS: FOLIC ACID 1MG TABLET PO SCH (08:43)
[2020-09-11] MEDS: TRAMADOL 50MG TABLET PO PRN ×2 (08:48→17:33)
[2020-09-11] MEDS ORDERED: ERGOCALCIFEROL 50000UNITS CAPSULE PO SCH (10:00)
[2020-09-11 20:00] VITALS: BP_SYST 113; BP_SYST 118; BP_DIAS 59; BP_DIAS 68
[2020-09-11] MEDS: ZOLPIDEM TARTRATE 5MG TABLET PO PRN (20:42)
[2020-09-12 06:46] LABS: BASOPHILS % 0.5 % (0.0-2.0); EOSINOPHILS % 3.1 % (0.0-5.0); HEMATOCRIT. 27.9 % (36.0-48.0); HEMOGLOBIN. 8.8 g/dL (12.0-16.0); LYMPHOCYTES % 42.9 % (20.0-50.0); MEAN CORPUSCULAR HEMOGLOBIN 29.7 pg (28.0-32.0); MEAN CORPUSCULAR VOLUME 94.1 fL (81.0-99.0); MEAN PLATELET VOLUME 8.5 fl (7.4-10.4); MONOCYTES % 9.5 % (2.0-8.0); PLATELET 260 x1000/uL (130-400); RED BLOOD CELL COUNT 2.96 mill/uL (4.2-5.4); RED CELL DISTRIBUTION WIDTH 14.3 % (11.6-14.6)
[2020-09-12 07:14] LABS: AMYLASE 221 IU/L (25-115)
[2020-09-12 08:00] VITALS: BP 107/65
[2020-09-12] MEDS: THIAMINE HCL 100MG TABLET PO SCH (08:10)
[2020-09-12] MEDS: FAMOTIDINE 20MG TABLET PO SCH (08:10)
[2020-09-12] MEDS: FOLIC ACID 1MG TABLET PO SCH (08:10)
[2020-09-12] MEDS: TRAMADOL 50MG TABLET PO PRN (08:11)
[2020-09-12] MEDS: ACETAMINOPHEN 325MG TABLET PO PRN (17:00)
[2020-09-12 20:00] VITALS: BP 100/64
[2020-09-12] MEDS: ZOLPIDEM TARTRATE 5MG TABLET PO PRN (20:44)
[2020-09-13 06:50] LABS: BASOPHILS % 0.3 % (0.0-2.0); EOSINOPHILS % 3.3 % (0.0-5.0); HEMATOCRIT. 27.4 % (36.0-48.0); LYMPHOCYTES % 42.3 % (20.0-50.0); MEAN CORPUSCULAR HEMOGLOBIN 30.9 pg (28.0-32.0); MEAN CORPUSCULAR VOLUME 93.9 fL (81.0-99.0); MEAN PLATELET VOLUME 8.5 fl (7.4-10.4); MONOCYTES % 10.7 % (2.0-8.0); NEUTROPHILS % 43.4 % (40.0-76.0); PLATELET 267 x1000/uL (130-400); RED BLOOD CELL COUNT 2.92 mill/uL (4.2-5.4); RED CELL DISTRIBUTION WIDTH 14.5 % (11.6-14.6)
[2020-09-13 07:11] LABS: AMYLASE 161 IU/L (25-115)
[2020-09-13 08:00] VITALS: BP 121/71
[2020-09-13] MEDS: FAMOTIDINE 20MG TABLET PO SCH (09:06)
[2020-09-13] MEDS: FOLIC ACID 1MG TABLET PO SCH (09:06)
[2020-09-13] MEDS: THIAMINE HCL 100MG TABLET PO SCH (09:06)
[2020-09-13] MEDS: TRAMADOL 50MG TABLET PO PRN ×2 (09:07→17:51)
[2020-09-13] MEDS: ACETAMINOPHEN 325MG TABLET PO PRN (14:23)
[2020-09-13 20:00] VITALS: BP 119/64
[2020-09-13] MEDS: ZOLPIDEM TARTRATE 5MG TABLET PO PRN (20:30)
[2020-09-14 07:18] LABS: BASOPHILS % 0.4 % (0.0-2.0); EOSINOPHILS % 4.1 % (0.0-5.0); HEMATOCRIT. 27.1 % (36.0-48.0); HEMOGLOBIN. 8.8 g/dL (12.0-16.0); LYMPHOCYTES % 43.5 % (20.0-50.0); MEAN CORPUSCULAR HEMOGLOBIN 30.7 pg (28.0-32.0); MEAN CORPUSCULAR VOLUME 94.5 fL (81.0-99.0); MEAN PLATELET VOLUME 8.4 fl (7.4-10.4); MONOCYTES % 11.4 % (2.0-8.0); NEUTROPHILS % 40.6 % (40.0-76.0); PLATELET 259 x1000/uL (130-400); RED BLOOD CELL COUNT 2.87 mill/uL (4.2-5.4); RED CELL DISTRIBUTION WIDTH 14.4 % (11.6-14.6)
[2020-09-14 07:37] LABS: AMYLASE 156 IU/L (25-115)
[2020-09-14 08:00] VITALS: BP 102/59
[2020-09-14] MEDS: THIAMINE HCL 100MG TABLET PO SCH (09:23)
[2020-09-14] MEDS: FAMOTIDINE 20MG TABLET PO SCH (09:23)
[2020-09-14] MEDS: FOLIC ACID 1MG TABLET PO SCH (09:24)
[2020-09-14] MEDS: TRAMADOL 50MG TABLET PO PRN ×2 (09:26→18:37)
[2020-09-14 20:00] VITALS: BP 122/69
[2020-09-14] MEDS: ZOLPIDEM TARTRATE 5MG TABLET PO PRN (22:27)
[2020-09-15 07:13] LABS: BASOPHILS % 0.3 % (0.0-2.0); EOSINOPHILS % 4.9 % (0.0-5.0); HEMATOCRIT. 28.7 % (36.0-48.0); HEMOGLOBIN. 9.2 g/dL (12.0-16.0); LYMPHOCYTES % 46.7 % (20.0-50.0); MEAN CORPUSCULAR HEMOGLOBIN 29.9 pg (28.0-32.0); MEAN CORPUSCULAR VOLUME 93.7 fL (81.0-99.0); MEAN PLATELET VOLUME 8.4 fl (7.4-10.4); MONOCYTES % 12.4 % (2.0-8.0); NEUTROPHILS % 35.7 % (40.0-76.0); PLATELET 258 x1000/uL (130-400); RED BLOOD CELL COUNT 3.06 mill/uL (4.2-5.4); RED CELL DISTRIBUTION WIDTH 14.4 % (11.6-14.6)
[2020-09-15 07:56] VITALS: BP 103/58
[2020-09-15] MEDS: FOLIC ACID 1MG TABLET PO SCH (08:14)
[2020-09-15] MEDS: THIAMINE HCL 100MG TABLET PO SCH (08:15)
[2020-09-15] MEDS: TRAMADOL 50MG TABLET PO PRN ×2 (08:15→17:48)
[2020-09-15 08:48] LABS: AMYLASE 144 IU/L (25-115)
[2020-09-15 20:00] VITALS: BP 103/65
[2020-09-15] MEDS: ZOLPIDEM TARTRATE 5MG TABLET PO PRN (21:13)
[2020-09-16 08:00] VITALS: BP 99/57
[2020-09-16] MEDS: FOLIC ACID 1MG TABLET PO SCH (08:10)
[2020-09-16] MEDS: THIAMINE HCL 100MG TABLET PO SCH (08:10)
[2020-09-16] MEDS: ACETAMINOPHEN 325MG TABLET PO PRN (08:10)
[2020-09-16 10:50] VITALS: BP 104/66
[2020-09-16 11:00] VITALS: BP 106/61
[2020-09-16 11:12] VITALS: BP 106/56
[2020-09-16 11:22] VITALS: BP 106/56
== END 2020-09-16 13:00 | disposition home or self-care (01) | DRG 74 ==
LOC: UNDODISIN 09-09 13:37
PROVIDERS: ADMIT Physical Medicine & Rehabilitation Spinal Cord Injury Medicine; ATTEND Internal Medicine
DX: G62.1 Alcoholic polyneuropathy (principal); E44.0 Moderate protein-calorie malnutrition; I50.30 Unspecified diastolic (congestive) heart failure; K86.2 Cyst of pancreas; N17.9 Acute kidney failure, unspecified; D63.8 Anemia in other chronic diseases classified elsewhere; F10.20 Alcohol dependence, uncomplicated; F41.9 Anxiety disorder, unspecified; I11.0 Hypertensive heart disease with heart failure; J44.9 Chronic obstructive pulmonary disease, unspecified; K52.9 Noninfective gastroenteritis and colitis, unspecified; K74.60 Unspecified cirrhosis of liver; G89.4 Chronic pain syndrome; R62.7 Adult failure to thrive; Z79.51 Long term (current) use of inhaled steroids; Z82.49 Family history of ischemic heart disease and other diseases of the circulatory system; Z86.73 Personal history of transient ischemic attack (TIA), and cerebral infarction without residual deficits; Z91.81 History of falling
CPT/HCPCS: 36415; 72170; 72192; 73562; 73700; 76700; 80053; 80076; 81003; 82140; 82150; 82270; 82306; 82607; 82728; 82746; 83540; 83550; 83735; 84100; 84134; 84443; 84450; 84460; 85025; 86705; 86709; 86803; 87015; 87045; 87177; 87209; 87340; 87427; 87449; 92523; 93970; 97110; 97116; 97162; 97166; 97530; 97535; J3420; J3490

== ENCOUNTER 2020-09-22 20:58 | Inpatient (IN) | payer MEDICARE, MEDICAID ==
[~2020-09-22] VITALS: Ht 162.6 cm; Wt 40.4 kg
[~2020-09-22 20:58] MED LIST changes: +ISOS30TA91 MT
[2020-09-22] MEDS ORDERED: METHYLPREDNISOLONE SOD SUCC 125 MG/2 ML VIAL IV STA (21:54)
[2020-09-22] MEDS ORDERED: ALBUTEROL (0.083%) 2.5MG/3ML NEB HHN STA (21:54)
[2020-09-22] MEDS ORDERED: IPRATROPIUM BROMIDE (0.02%) 0.5MG/2.5ML NEB HHN STA (21:54)
[2020-09-22] MEDS ORDERED: ASPIRIN 81MG TABLET PO ONE (22:00)
[2020-09-22 23:51] LABS: BASOPHILS % 0.2 % (0.0-2.0); EOSINOPHILS % 1.6 % (0.0-5.0); HEMATOCRIT. 29.9 % (36.0-48.0); HEMOGLOBIN. 9.8 g/dL (12.0-16.0); LYMPHOCYTES % 34.9 % (20.0-50.0); MEAN CORPUSCULAR HEMOGLOBIN 30.5 pg (28.0-32.0); MEAN CORPUSCULAR VOLUME 92.7 fL (81.0-99.0); MEAN PLATELET VOLUME 7.5 fl (7.4-10.4); MONOCYTES % 11.8 % (2.0-8.0); NEUTROPHILS % 51.5 % (40.0-76.0); PLATELET 429 x1000/uL (130-400); RED BLOOD CELL COUNT 3.22 mill/uL (4.2-5.4); RED CELL DISTRIBUTION WIDTH 13.8 % (11.6-14.6)
[2020-09-22 23:55] LABS: CHLORIDE 100 mEq/L (98-107)
[2020-09-22 23:56] LABS: INR 0.9; PROTHROMBIN TIME 10.1 sec (9.6-11.0)
[2020-09-23] VITALS (8 sets, daily range): BP systolic 106–145; BP diastolic 71–94
[2020-09-23] LABS: ETHANOL BLOOD 29 mg/dL
[2020-09-23 01:40] LABS: CLARITY URINE CLOUDY (CLEAR); COLOR URINE YELLOW (YELLOW); KETONES URINE NEGATIVE (NEGATIVE); LEUKOCYTE ESTERASE URINE TRACE (NEGATIVE); NITRITE URINE NEGATIVE (NEGATIVE); OCCULT BLOOD URINE NEGATIVE (NEGATIVE); PH URINE 5.5 (4.5-8.0); PROTEIN URINE NEGATIVE (NEGATIVE); SPECIFIC GRAVITY URINE 1.015 (1.005-1.030); UROBILINOGEN URINE 0.2 E.U./dL (0.2-1.0)
[2020-09-23 01:51] LABS: *AMPHETAMINES SCREEN URINE NEGATIVE (NEGATIVE); *BARBITURATES SCREEN URINE NEGATIVE (NEGATIVE)
[2020-09-23 01:52] LABS: *BENZODIAZEPINES SCREEN URINE PRESUMTIVE POSITIVE (NEGATIVE); *COCAINE SCREEN URINE NEGATIVE (NEGATIVE); CANNABINOID URINE SCREEN NEGATIVE (NEGATIVE); METHADONE URINE SCREEN NEGATIVE (NEGATIVE); OPIATES URINE SCREEN PRESUMTIVE POSITIVE (NEGATIVE); PHENCYCLIDINE URINE SCREEN NEGATIVE (NEGATIVE)
[2020-09-23 02:11] LABS: BG BASE EXCESS 16.3 mmol/L (-2.0-2.0); BG CARBOXYHEMOGLOBIN 0.4 % (0.5-1.5); BG DEOXYHEMOGLOBIN 4.9 % (0.0-5.0); BG FRACTION INSPIRED OXYGEN 28; BG HCO3 ACT 45.9 mmol/L (22.0-26.0); BG METHEMOGLOBIN 0.2 % (0.0-1.5); BG OXYGEN SATURATION 95.1 % (92.0-98.5); BG OXYHEMOGLOBIN 94.5 % (94.0-97.0); BG PCO2 92.5 mmHg (35.0-45.0); BG PH 7.314 (7.350-7.450); BG PO2 78.8 mmHg (75.0-100.0); BG TOTAL HEMOGLOBIN 10.7 g/dL (12.0-18.0); BG VENT MODE NASAL CANNULA
[2020-09-23] MEDS ORDERED: LEVOFLOXACIN 750MG PREMIX 150 ML IV ONE (04:00)
[2020-09-23] MEDS ORDERED: LORAZEPAM 2MG/ML CPJ IV PRN (09:30)
[2020-09-23] MEDS ORDERED: ACETAMINOPHEN 325MG TABLET PO PRN (09:30)
[2020-09-23] MEDS: IPRATROPIUM/ALBUTEROL 0.5-3(2.5)MG/3ML NEB HHN SCH ×2 (12:45→21:55)
[2020-09-23] MEDS: CHLORDIAZEPOXIDE 25MG CAPSULE PO SCH ×2 (14:08→21:05)
[2020-09-23] MEDS ORDERED: METHYLPREDNISOLONE SOD SUCC 40 MG/ML VIAL IV PRN (19:30)
[2020-09-23] MEDS: HYDROCODONE/ACETAMINOPHEN 10/325MG TABLET PO PRN (19:48)
[2020-09-23] MEDS ORDERED: ZOLPIDEM TARTRATE 5MG TABLET PO PRN (21:00)
[2020-09-24] VITALS (9 sets, daily range): BP systolic 94–115; BP diastolic 60–73
[2020-09-24] MEDS: IPRATROPIUM/ALBUTEROL 0.5-3(2.5)MG/3ML NEB HHN SCH ×3 (01:30→13:35)
[2020-09-24] MEDS: CHLORDIAZEPOXIDE 25MG CAPSULE PO SCH ×2 (06:21→14:17)
[2020-09-24] MEDS: HYDROCODONE/ACETAMINOPHEN 10/325MG TABLET PO PRN (08:36)
[2020-09-24] MEDS ORDERED: THIAMINE HCL 100MG TABLET PO SCH (09:00)
[2020-09-24] MEDS ORDERED: HYDR-4009 MT (12:07)
[2020-09-24] MEDS ORDERED: IPRA3AMP9 NEB (12:07)
[2020-09-24] MEDS ORDERED: FOLI-43 GT (12:07)
[2020-09-24] MEDS ORDERED: FLUT1DIS3 INH (12:07)
[2020-09-24] MEDS ORDERED: ALBU18HF2 IH (12:07)
[2020-09-24] MEDS ORDERED: CHLO25CA10 MT (12:07)
[2020-09-24] MEDS ORDERED: THIA100T72 GT (12:07)
== END 2020-09-24 15:25 | disposition home or self-care (01) | DRG 189 ==
LOC: ER 20:58 → 5EST 09-23 02:21 → EDBEDREQ 09-23 02:24 → EDBEDREQSVC 09-23 02:25 → EDBEDREQTM 09-23 02:25 → ENRESERV 09-23 07:32
PROVIDERS: ADMIT Internal Medicine; ATTEND Internal Medicine
PROC: 5A09357 Assistance with Respiratory Ventilation, Less than 24 Consecutive Hours, Continuous Positive Airway Pressure (ICD-10-PCS; principal; 2020-09-23)
DX: J96.20 Acute and chronic respiratory failure, unspecified whether with hypoxia or hypercapnia (principal); J44.1 Chronic obstructive pulmonary disease with (acute) exacerbation; D64.9 Anemia, unspecified; F10.129 Alcohol abuse with intoxication, unspecified; I50.9 Heart failure, unspecified; B19.20 Unspecified viral hepatitis C without hepatic coma; I11.0 Hypertensive heart disease with heart failure; I25.10 Atherosclerotic heart disease of native coronary artery without angina pectoris; Z82.49 Family history of ischemic heart disease and other diseases of the circulatory system; Z99.81 Dependence on supplemental oxygen; Z88.0 Allergy status to penicillin; Z88.8 Allergy status to other drugs, medicaments and biological substances; Z79.899 Other long term (current) drug therapy; Z71.41 Alcohol abuse counseling and surveillance of alcoholic
CPT/HCPCS: 36415; 36600; 71045; 80053; 80305; 80307; 80320; 80329; 81003; 82375; 82805; 84484; 85025; 93005; 94640; 94644; 94660; 97162; 99291; J1956; J2930; G0480

== ENCOUNTER 2020-10-08 09:29 | Emergency (ER) | payer MEDICARE, MEDICAID ==
[~2020-10-08] VITALS: Ht 165.1 cm; Wt 51.0 kg
[~2020-10-08 09:29] MED LIST changes: -AMLO5TAB88 PO; +ASPI-1160 PO; -P20 MT
[2020-10-08 09:50] VITALS: BP 123/87
== END 2020-10-08 10:58 | disposition home or self-care (01) ==
LOC: ER 09:41
DX: T50.991A Poisoning by other drugs, medicaments and biological substances, accidental (unintentional), initial encounter (principal); F11.188 Opioid abuse with other opioid-induced disorder; Y92.018 Other place in single-family (private) house as the place of occurrence of the external cause; I11.0 Hypertensive heart disease with heart failure; I50.9 Heart failure, unspecified; J44.9 Chronic obstructive pulmonary disease, unspecified; I25.10 Atherosclerotic heart disease of native coronary artery without angina pectoris; Z79.899 Other long term (current) drug therapy; Z79.51 Long term (current) use of inhaled steroids
CPT/HCPCS: 99283